=== PATIENT | female | born 1935 | race Caucasian/White ===

== ENCOUNTER 2017-10-09 16:45 | Inpatient (IN) | payer MEDICARE, BC ==
[2017-10-09 19:11] LABS: #Basophils 0.1 thou/uL (0.0-0.2); #Eosinphils 0.2 thou/uL (0.0-0.7); #Lymphocytes 1.6 thou/uL (1.20-3.40); #Monocytes 0.6 thou/uL (0.11-0.59); #Neutrophils 7.7 thou/uL (1.40-6.50); %Basophils 0.5 % (0.0-1.0); %Eosinophils 1.7 % (0.0-10.0); %Monocytes 6.1 % (0.0-10.0); Mean Platelet Volume 7.2 fL (7.4-10.4); Red Blood Cell (RBC) Count 3.29 mill/uL (4.20-5.40); White Blood Cell (WBC) Count 10.2 thou/uL (4.8-10.8)
[2017-10-09 19:33] LABS: ALT (SGPT) 12 U/L (8-55); AST (SGOT) 20 U/L (5-34); Alkaline Phosphatase 122 U/L (40-150); Anion Gap 11 mmol/L (10-20); BUN (Urea Nitrogen) 23 mg/dL (9.8-20.1); Bilirubin, Total 0.2 mg/dL (0.2-1.2); Calc. Creatinine Clearance 0 mL/min (70-130); Calcium 8.9 mg/dL (7.8-10.44); Carbon Dioxide 25 mmol/L (23-31); Chloride 107 mmol/L (98-107); Estimated GFR-MDRD 43; Globulin 2.1 g/dL (2.4-3.5); Protein, Total 5.8 g/dL (6.0-8.3)
[2017-10-09 19:38] LABS: Troponin I 0.019 ng/mL (< 0.028)
--- NOTE | 2017-10-09 20:14 | RAD ---
LEFT HIP RADIOGRAPH TWO VIEWS 10/09/17 PROVIDED CLINICAL HISTORY: Left hip pain status post injury. There is no evidence for fracture or other acute osseous abnormality. If there is persistent clinical concern, conservative management and followup imaging are advised. IMPRESSION: As above. POS: [facility]
--- NOTE | 2017-10-09 20:17 | RAD ---
PELVIC RADIOGRAPH 10/09/17 PROVIDED CLINICAL HISTORY: Pain status post injury. FINDINGS: Comparison 01/13/13. There is no evidence for fracture or other acute osseous abnormality. If there is persistent clinical concern, conservative management and followup imaging are advised. IMPRESSION: As above. POS: [facility]
--- NOTE | 2017-10-09 20:36 | RAD ---
PORTABLE CHEST 10/09/17 PROVIDED CLINICAL HISTORY: Trauma. FINDINGS: Comparison 01/27/16. The cardiac and mediastinal silhouette is within normal limits. Vascular calcification is noted invol ving the thoracic aorta. 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 No focal consolidation, pleural fluid, or pneumothorax apparent. IMPRESSION: No evidence for acute cardiopulmonary process. POS: [facility]
--- NOTE | 2017-10-09 20:49 | CT ---
CT BRAIN 10/09/17 PROVIDED CLINICAL HISTORY: Fall with head pain. FINDINGS: Comparison is made with the study dated 01/27/16. The ventricular system is unchanged in size and morphology. There is no evidence for intracranial hem orrhage or mass effect. Encephalomalacia in the left parieto-occipital region is redemonstrated, stab le. Chronic microvascular ischemic changes are again seen. No evidence for intracranial hemorrhage or mass effect. The extracranial soft tissues and osseous structures demonstrate an unremarkable CT horace earance. Remote infarction involving the left cerebellar hemisphere is again seen. IMPRESSION: No evidence for intracranial hemorrhage or mass effect. POS: [facility]
[2017-10-09 21:07] LABS: Bilirubin Negative (Negative); Blood, Urine Negative (Negative); Glucose, Urine (Dipstick) Negative (Negative); Ketone, Urine Negative (Negative); Nitrite Negative (Negative); Protein, Urine (Dipstick) Trace mg/dL (Neg-Trace); Urobilinogen 0.2 mg/dL (0.2-1.0)
[2017-10-09] MEDS ORDERED: Sodium Chloride 0.9% 1,000 ML IV SCH (23:10)
[2017-10-10 00:34] VITALS: BMI 23.6
[2017-10-10] MEDS ORDERED: Guaifenesin DM 100-10/5 ML UDCUP PO PRN (00:53)
[2017-10-10] MEDS ORDERED: ALPRAZolam 0.25 MG TAB PO PRN (00:53)
[2017-10-10] MEDS ORDERED: Senokot 8.6 MG TAB PO PRN (00:53)
[2017-10-10] MEDS ORDERED: Lorazepam 2 MG/ML VIAL SLOW IVP PRN (00:53)
[2017-10-10] MEDS ORDERED: Nitroglycerin 0.4 MG TAB (25 Tab Bottle) SL PRN (00:53)
[2017-10-10] MEDS: Sodium Chloride 0.9% 1,000 ML IV SCH ×2 (01:39→18:56)
--- NOTE | 2017-10-10 03:23 | HP ---
REASON FOR ADMISSION: Possible cerebrovascular accident, likely seizure episode at home, demand ischemia. HISTORY OF PRESENTING ILLNESS: Please note majority of this history is obtained by my talking to her daughter who is here at bedside as patient does not recall exactly what happened. She apparently fell out of her bed yesterday morning. She was diaphoretic and lethargic as well. She took a while to become more alert. The daughter who witnessed this slowly placed her back in a chair. She fell again from the chair and had another episode of fall in the kitchen while she was ambulating with a walker. She has been leaning to the right. Also, the daughter mentions that she has been slowly declining from last 3 years. Patient normally slurs her speech only when she gets very tired, but she has had a slurred speech from yesterday afternoon. With all the above, patient was brought to the emergency room. 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 CURRENT MEDICATIONS: Patient takes vitamin D3 of 2000 units p.o. daily, CoQ10 at 100 mg p.o. daily, sertraline 50 mg p.o. daily, Protonix 40 mg p.o. daily, Dilantin 200 mg p.o. at bedtime, duloxetine 30 mg p.o. daily, Flexeril 5 mg p.o. q.6 hourly p.r.n., Norvasc 2.5 mg p.o. daily, clonidine p.r.n., aspirin 81 mg p.o. daily, Zetia 10 mg p.o. daily, Bystolic 5 mg daily, Plavix 75 mg daily, Crestor 20 mg daily, lisinopril 20 mg daily. ALLERGIES: CIPRO, CODEINE, DEMEROL, PENICILLIN, ULTRAM, and PHENERGAN. PERSONAL HISTORY: Does not abuse alcohol or drugs. No history of smoking. FAMILY HISTORY: Mom of old age at the age of 86 years. Father of lung cancer at the age of 76 years. REVIEW OF SYSTEMS: The following complete review of systems was negative, unless otherwise mentioned in the HPI or below: Constitutional: Weight loss or gain, ability to conduct usual activities. Skin: Rash, itching. Eyes: Double vision, pain. ENT/Mouth: Nose bleeding, neck stiffness, pain, tenderness. Cardiovascular: Palpitations, dyspnea on exertion, orthopnea. Respiratory: Shortness of breath, wheezing, cough, hemoptysis, fever, or night sweats. Gastrointestinal: Poor appetite, abdominal pain, heartburn, nausea, vomiting, constipation, or diarrhea. Genitourinary: Urgency, frequency, dysuria, nocturia. Musculoskeletal: Pain, swelling. Neurologic/Psychiatric: Anxiety, depression. Allergy/Immunologic: Skin rash, bleeding tendency. PHYSICAL EXAMINATION: GENERAL: Patient is an 82-year-old female who is currently lethargic, but oriented. VITAL SIGNS: Blood pressure on arrival was 119/54, pulse 70 per minute, respiratory rate 18 per minute, temperature 98.4 degrees Fahrenheit, saturating 92% on room air. NECK: Supple, no elevated JVD. HEENT: Extraocular muscles intact. Pupils reacting to light. Oral cavity, mucous membranes are moist. No exudates or congestion. Patient has two lacerations on the tongue. CARDIOVASCULAR SYSTEM: S1, S2 heard. Regular rhythm. RESPIRATORY SYSTEM: Air entry 1+ bilateral. No rales or rhonchi. ABDOMEN: Soft, bowel sounds heard. No tenderness, rigidity, or guarding. EXTREMITIES: No peripheral edema or calf tenderness. VASCULAR SYSTEM: Peripheral pulses 1+ bilateral. No ischemic ulcerations or gangrene. CENTRAL NERVOUS SYSTEM: No gross focal deficits seen. Patient is lethargic with slurred speech, but no signs of seventh nerve palsy. PSYCHIATRIC SYSTEM: Patient does not have any hallucinations or delusions at present. LABORATORY DATA AND X-RAY FINDINGS: CT brain done shows old left parieto- occipital area, CVA with encephalomalacia. She also has left cerebellar hemisphere remote infarct. Pelvic x-ray done showed no fracture or acute osseous abnormality. Chest x-ray done shows no acute cardiopulmonary abnormality. Left hip x-ray done shows no acute fractures or osseous abnormality. BUN 23, creatinine 1.20. Electrolytes are stable. Liver enzymes within normal limits. Albumin is 3.7, one set of cardiac enzymes are negative. White count of 10, H&H 10 and 32, platelet count 187 with 75% neutrophils, MCV is 97. CLINICAL IMPRESSION AND PLAN: Patient will be admitted to stroke unit for recurrent falls with patient leaning more to the right. In view of this, we will obtain an MRI without contrast to rule out posterior hemisphere cerebrovascular accident. Will do a complete stroke workup including echo, carotid Doppler. Patient has lacerations on the tongue and most likely had a seizure. We will continue phenytoin as of now at 200 mg at bedtime. We will obtain Dilantin levels as well and we will have EEG done. Dr. Millie Henriquez is telephone maintainer for Neurology and will be consulted. I have given complete updates to patient and her daughter who is here at bedside. As patient is on aspirin and Plavix will be switched to Aggrenox and Plavix for now. She has had prior carotid endarterectomy as well done and we will continue Plavix for her coronary artery disease and carotid disease. We will continue Zetia and Crestor for her dyslipidemia. She will be gently hydrated with normal saline at 60 mL per hour. We will obtain orthostatic blood pressures as well. Please note I have seen and examined patient on 10/09/2017. HUANGD
[2017-10-10 06:50] LABS: Band 2 % (5-11); Hematocrit 32.9 % (36.0-47.0); Mean Platelet Volume 7.2 fL (7.4-10.4); Neutrophil 77 % (42-75); Red Blood Cell (RBC) Count 3.41 mill/uL (4.20-5.40); White Blood Cell (WBC) Count 7.5 thou/uL (4.8-10.8)
[2017-10-10 07:31] LABS: Anion Gap 14 mmol/L (10-20); BUN (Urea Nitrogen) 19 mg/dL (9.8-20.1); Calc. Creatinine Clearance 39 mL/min (70-130); Calcium 8.8 mg/dL (7.8-10.44); Carbon Dioxide 23 mmol/L (23-31); Chloride 109 mmol/L (98-107); Cholesterol 148 mg/dl (< 200 Desired); Dilantin 4.3 ug/mL (10.0-20.0); Estimated GFR-MDRD 62; LDL Cholesterol, Calculated 80 mg/dL
--- NOTE | 2017-10-10 08:27 | ULT ---
ULTRASOUND CAROTID DOPPLER: HISTORY: CVA. COMPARISON: Carotid Doppler ultrasound from 2011. FINDINGS: Moderate atherosclerotic plaque of the proximal bulbs and proximal internal carotid arteries. Antegr heidi flow left vertebral artery. Antegrade flow right vertebral artery. No elevated peak systolic ve locities of the internal carotid artery to suggest significantly significant stenosis. Right ICA/CCA ratio is 0.94 and left ICA/CCA ratio is 1.55. IMPRESSION: Moderate atherosclerotic plaque. No hemodynamically significant stenosis. POS: [facility]
[2017-10-10] MEDS ORDERED: Aggrenox 200-25mg CAP PO SCH (09:00)
[2017-10-10] MEDS: Amlodipine 5 MG TAB PO SCH (09:54)
[2017-10-10] MEDS: Nebivolol HCl 5 MG TAB PO SCH (09:55)
[2017-10-10] MEDS: Famotidine 20 MG TAB PO SCH (09:56)
[2017-10-10] MEDS: Clopidogrel Bisulfate 75 MG TAB PO SCH (10:00)
[2017-10-10] MEDS: Enoxaparin Sodium 30 MG/0.3 ML SYRINGE SC SCH (10:01)
[2017-10-10] MEDS: Acetaminophen 325 MG TAB PO PRN (11:57)
[2017-10-10] MEDS ORDERED: ALPRAZolam 0.5 MG TAB PO SCH (12:15)
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
[2017-10-10] MEDS ORDERED: Ondansetron HCl/PF 4 MG/2 ML Vial IVP PRN (14:43)
[2017-10-10] MEDS: Ezetimibe 10 MG TAB PO SCH (21:24)
[2017-10-10] MEDS: Lisinopril 20 MG TAB PO SCH (21:24)
--- NOTE | 2017-10-10 21:54 | CON ---
DATE OF CONSULTATION: 10/10/2017 REFERRING PROVIDER: Sherry Colvin M.D. REASON FOR CONSULTATION: Ataxia. HISTORY OF PRESENT ILLNESS: Ms. El is a pleasant 82-year-old female who has been con sulted for evaluation of ataxia. History is obtained from daughter who was present at the bedside. Daughter reports that yesterday she had an episode of fall. She was trying to get up out of the chun r and she slid and fell down. She also noticed her walking and balance was off in that she was leani ng more toward the left side while walking. She had another fall a few hours later, which was unwitn essed. At that time, the patient had mentioned that she was trying to sit down onto the chair and fe ll down as she missed the chair. Then, a few hours later, she had another fall which prompted her to bring her to the [place] emergency room. Daughter reports that the patient has a history of stro ke in 2014 when she was admitted at [facility] and she has shown me the images for CT s can, which showed left posterior parieto-occipital region ischemic infarct. She states that she has recovered well from that stroke and was doing well up until yesterday. Currently, the patient denies any headache, chest pain, palpitation, nausea, vomiting, numbness, tingling, or weakness. PAST MEDICAL HISTORY: Significant for hypertension, coronary artery disease, history of stroke, ques tionable seizure. PAST SURGICAL HISTORY: Significant for hysterectomy, appendectomy, breast biopsies, back surgery x2, right total knee replacement, right shoulder surgery, and TAVR. SOCIAL HISTORY: She denies smoking, alcohol use, or illicit drug use. She lives with her daughter. FAMILY HISTORY: Noncontributory. CURRENT MEDICATIONS: Please review MAR. ALLERGIES: Include CIPRO, CODEINE, DEMEROL, PENICILLIN, ULTRAM and PHENERGAN. REVIEW OF SYSTEMS: As mentioned in the HPI, otherwise, negative. PHYSICAL EXAMINATION: VITAL SIGNS: Blood pressure 147/65, pulse of 73, temperature of 97.5, respirations of 18, O2 sats of 92% on room air. GENERAL: Well-developed, well-nourished female in no apparent distress. RESPIRATORY: Clear to auscultation bilaterally. CARDIOVASCULAR: Regular rate and rhythm. NEUROLOGIC: Mental status: The patient is awake, alert, and oriented x3. Speech and language: Flu ent speech. Cranial nerves: Pupils are 3 mm and reactive. Visual perkins are intact. External musc les are intact. No nystagmus is noted. There is a facial droop noted on the left side. Per rhea mehta, this has been present since . Tongue and uvula are midline. Motor exam showed normal tone a nd bulk with 5/5 strength in both upper and lower extremities. Sensory: Sensation was intact and sy mmetric. Deep tendon reflexes: 2+ reflexes in both upper and lower extremities. Babinski: Plantar response is flexion bilaterally. Coordination: There is no dysmetria noted on [id number] o n the left side. LABORATORY DATA: Reviewed, which included CBC, CMP, lipid profile, urinalysis, and Dilantin level, w hich is significant for hemoglobin of 10.8, hematocrit of 32.9, total cholesterol of 148, triglycerid es of 155, LDL of 80, HDL of 37. Dilantin level was 4.3, otherwise, normal. IMAGING STUDIES: CT head without contrast was reviewed, which showed old encephalomalacia involving the left parieto-occipital region, as well as remote infarction in the left cerebellar hemisphere. O therwise, no acute intracranial abnormality. IMPRESSION: 1. Ataxia. 2. Possible cerebellar infarct. 3. Hypertension. ASSESSMENT AND PLAN: Ms. El is a pleasant 82-year-old female who presented with diff iculty with balance and gait with 3 falls. On exam, she has dysmetria on [id number] on the l eft side. This would suggest a possible cerebellar stroke on the left side. At this time, I would r ecommend obtaining MRI brain without contrast for further evaluation. I would recommend continuing h er on Plavix 75 mg daily for secondary stroke prevention. I would discontinue Aggrenox as Plavix and Aggrenox combination increases the risk for bleeding and combination does not provide any significan t benefit overall to the patient. Consult PT, OT. Continue current medical management.
[2017-10-11] MEDS: Acetaminophen 325 MG TAB PO PRN ×3 (05:11→20:22)
[2017-10-11] MEDS: Sodium Chloride 0.9% 1,000 ML IV SCH (09:53)
[2017-10-11] MEDS: Amlodipine 5 MG TAB PO SCH (09:53)
[2017-10-11] MEDS: Nebivolol HCl 5 MG TAB PO SCH (09:53)
[2017-10-11] MEDS: Clopidogrel Bisulfate 75 MG TAB PO SCH (09:53)
[2017-10-11] MEDS: Enoxaparin Sodium 30 MG/0.3 ML SYRINGE SC SCH (09:55)
[2017-10-11] MEDS: Famotidine 20 MG TAB PO SCH (09:55)
[2017-10-11] MEDS ORDERED: Lorazepam 2 MG/ML VIAL SLOW IVP SCH (16:00)
--- NOTE | 2017-10-11 17:50 | MRI ---
MRI OF BRAIN 10/11/17 PROVIDED CLINICAL HISTORY: Stroke. FINDINGS: The ventricular system is mildly prominent in size on the basis of central atrophy. There is no evide nce for intracranial hemorrhage. There is a punctate focus of possible diffusion restriction within t he right shy yue. The small nature of this finding and the chronic microvascular ischemic change in this region which surrounds this finding on the ADC map limits the ability to discriminate whether t his represents true restricted diffusion or not. No additional potential restricted diffusion is seen . Advanced chronic ischemic changes are also seen involving the basal ganglia and thalami. Encephalom alacia related to prior infarction involves the left occipital region. Appropriate flow voids are see n within the major intracranial vessels. The extracranial soft tissues and calvarial marrow signal de monstrate an unremarkable MR appearance. IMPRESSION: 1. Extensive chronic microvascular ischemic change. 2. Possible punctate focus of recent infarction within the right shy yue. POS: [facility]
--- NOTE | 2017-10-11 18:24 | PDOC.PN ---
- Subjective Encounter Start Date: 10/11/17 Encounter Start Time: 18:23 Subjective: seen and examined..+nausea/vomiting - Objective Resuscitation Status: Resuscitation Status FULL:Full Resuscitation Vital Signs & Weight: Vital Signs (12 hours) Temp Pulse Pulse Pulse Resp BP BP 10/11/17 18:00 10/11/17 15:28 97.6 F 80 16 10/11/17 11:20 85 80 153/67 H 10/11/17 11:10 98.3 F 78 16 10/11/17 09:53 94 184/79 H 10/11/17 08:00 98.3 F 78 16 10/11/17 07:30 100 F H 94 18 BP BP Pulse Ox 10/11/17 18:00 146/65 H 10/11/17 15:28 192/80 H 94 L 10/11/17 11:20 152/69 H 10/11/17 11:10 134/60 97 10/11/17 09:53 10/11/17 08:00 10/11/17 07:30 184/79 H 98 Weight Weight 108 lb 12.8 oz I&O: 10/10/17 10/11/17 10/12/17 06:59 06:59 06:59 Intake Total 540 1476 Balance 540 1476 Result Diagrams: 10/10/17 06:21 10/10/17 06:21 Phys Exam - Physical Examination Constitutional: NAD HEENT: PERRLA, moist MMs, sclera anicteric, TM's clear Neck: no nodes, no JVD, supple, full ROM Respiratory: no wheezing, no rales, no rhonchi, clear to auscultation bilateral Cardiovascular: RRR, no significant murmur Gastrointestinal: soft, non-tender Dx/Plan (1) CVA (cerebral vascular accident) Code(s): I63.9 - CEREBRAL INFARCTION, UNSPECIFIED Status: Acute (2) Seizure Code(s): R56.9 - UNSPECIFIED CONVULSIONS Status: Acute (3) Advanced age Code(s): R54 - AGE-RELATED PHYSICAL DEBILITY Status: Acute (4) Hyperlipidemia Code(s): E78.5 - HYPERLIPIDEMIA, UNSPECIFIED Status: Chronic (5) Hypertension Code(s): I10 - ESSENTIAL (PRIMARY) HYPERTENSION Status: Chronic (6) Nausea & vomiting Code(s): R11.2 - NAUSEA WITH VOMITING, UNSPECIFIED Status: Acute - Plan plan discussed w/ family, PT/OT, social media intern Appreciate Neurology input -: MRI of the braibn--follow up result * .
[2017-10-11] MEDS: Ezetimibe 10 MG TAB PO SCH (20:22)
[2017-10-11] MEDS: Lisinopril 20 MG TAB PO SCH (20:23)
[2017-10-12] MEDS: Sodium Chloride 0.9% 1,000 ML IV SCH (08:25)
[2017-10-12] MEDS: Nebivolol HCl 5 MG TAB PO SCH (08:26)
[2017-10-12] MEDS: Famotidine 20 MG TAB PO SCH (08:26)
[2017-10-12] MEDS: Amlodipine 5 MG TAB PO SCH (08:26)
[2017-10-12] MEDS: Clopidogrel Bisulfate 75 MG TAB PO SCH (08:26)
[2017-10-12] MEDS: Enoxaparin Sodium 30 MG/0.3 ML SYRINGE SC SCH (08:27)
--- NOTE | 2017-10-12 10:01 | PDOC.PN ---
- Subjective Encounter Start Date: 10/12/17 Encounter Start Time: 09:59 Subjective: Seen and examined feeling ok - Objective Resuscitation Status: Resuscitation Status FULL:Full Resuscitation Vital Signs & Weight: Vital Signs (12 hours) Temp Pulse Resp BP BP Pulse Ox 10/12/17 08:26 73 168/70 H 10/12/17 08:00 98.4 F 73 16 10/12/17 07:15 98.4 F 73 16 168/70 H 96 10/12/17 03:53 98.1 F 64 18 177/82 H 94 L 10/11/17 23:54 97.2 F L 72 20 160/69 H 96 Weight Weight 108 lb 12.8 oz I&O: 10/11/17 10/12/17 10/13/17 06:59 06:59 06:59 Intake Total 540 1716 240 Balance 540 1716 240 Result Diagrams: 10/10/17 06:21 10/10/17 06:21 Phys Exam - Physical Examination Constitutional: NAD HEENT: PERRLA, moist MMs, sclera anicteric, TM's clear Neck: no nodes, no JVD, supple, full ROM Respiratory: no wheezing, no rales, no rhonchi, clear to auscultation bilateral Cardiovascular: RRR, no significant murmur, no rub Gastrointestinal: soft, non-tender, no distention, positive bowel sounds Dx/Plan (1) CVA (cerebral vascular accident) Code(s): I63.9 - CEREBRAL INFARCTION, UNSPECIFIED Status: Acute (2) Seizure Code(s): R56.9 - UNSPECIFIED CONVULSIONS Status: Acute (3) Advanced age Code(s): R54 - AGE-RELATED PHYSICAL DEBILITY Status: Acute (4) Hyperlipidemia Code(s): E78.5 - HYPERLIPIDEMIA, UNSPECIFIED Status: Chronic (5) Hypertension Code(s): I10 - ESSENTIAL (PRIMARY) HYPERTENSION Status: Chronic (6) Nausea & vomiting Code(s): R11.2 - NAUSEA WITH VOMITING, UNSPECIFIED Status: Acute - Plan PT/OT, social media manager, respiratory therapy Referred to Rehab -: Awaiting acceptance/placement -: Neurology following -: MRI confirmed stroke * .
[2017-10-12 15:55] VITALS: TEMP 98.3
[2017-10-12 16:20] VITALS: BP 150/66
--- NOTE | 2017-10-16 12:09 | EEG ---
Referring Physician: Sukumar SCHMITZ EEG # [id number] TEST TYPE: ROUTINE PORTABLE INPATIENT REASON FOR EEG: ALTERED MENTAL STATUS EEG DESCRIPTION: This is a 21 channel digital EEG recording. The electrodes are placed according to international 10-20 electrode placement system. The background rhythm is predominately 8 hertz, medium voltage alpha rhythm. There are periods of drowsiness with 6-7 hertz, low to medium voltage theta rhythm. HYPERVENTILATION: Is not done. PHOTIC STIMULATION: Showed no effect. There are no epileptiform discharges, sharp transients or asymmetry noted. EKG LEAD: Shows 90 beats per minute, regular rhythm IMPRESSION: THIS IS A NORMAL AWAKE AND DROWSY EEG. Log Peeler: MISHA Geriatric Assistant: EEG.MSL HUANGD
== END 2017-10-12 16:10 | DRG 66 ==
LOC: ERS 16:45 → 2SE 23:43
PROVIDERS: ADMIT Internal Medicine; ATTEND Internal Medicine
PROC: B030ZZZ Magnetic Resonance Imaging (MRI) of Brain (ICD-10-PCS; principal; 2017-10-11)
DX: I63.9 Cerebral infarction, unspecified (principal); R56.9 Unspecified convulsions; R54 Age-related physical debility; I10 Essential (primary) hypertension; I25.10 Atherosclerotic heart disease of native coronary artery without angina pectoris; R27.0 Ataxia, unspecified; R29.6 Repeated falls; R27.8 Other lack of coordination; Z96.651 Presence of right artificial knee joint; Z99.3 Dependence on wheelchair; Z88.1 Allergy status to other antibiotic agents; Z88.5 Allergy status to narcotic agent; Z88.0 Allergy status to penicillin; Z95.2 Presence of prosthetic heart valve; Z88.8 Allergy status to other drugs, medicaments and biological substances; Z80.1 Family history of malignant neoplasm of trachea, bronchus and lung
CPT/HCPCS: 36415; 51701; 70450; 70551; 71010; 72170; 80048; 80053; 80061; 80185; 81003; 82553; 84443; 84484; 85025; 93005; 93306; 93880; 95816; 95819; A4353; G8978-GP-CK; G8979-GP-CI; G8987-GO-CM; G8988-GO-CK; G8996-GN-CI; G8997-GN-CI; J1650; J2060; J2405

== ENCOUNTER 2017-10-28 19:36 | Observation (INO) | payer MEDICARE, BC ==
[2017-10-28 20:07] LABS: #Lymphocytes 0.4 thou/uL (1.20-3.40); #Monocytes 0.6 thou/uL (0.11-0.59); #Neutrophils 4.7 thou/uL (1.40-6.50); %Eosinophils 0.4 % (0.0-10.0); %Lymphocytes 7.6 % (21.0-51.0); %Monocytes 9.8 % (0.0-10.0); %Neutrophils 82.2 % (42.0-75.0); Hemoglobin 9.4 g/dL (12.0-16.0); Mean Corpuscular HGB CONC 33.2 g/dL (32.0-36.0); Mean Corpuscular Hemoglobin 33.5 pg (27.0-31.0); Mean Platelet Volume 6.9 fL (7.4-10.4); Platelet Count 145 thou/uL (130-400); RBC Distribution Width 12.5 % (11.5-14.5); Red Blood Cell (RBC) Count 2.82 mill/uL (4.20-5.40); White Blood Cell (WBC) Count 5.8 thou/uL (4.8-10.8)
[2017-10-28 20:37] LABS: ALT (SGPT) 16 U/L (8-55); AST (SGOT) 20 U/L (5-34); Albumin 3.3 g/dL (3.4-4.8); Alkaline Phosphatase 101 U/L (40-150); Anion Gap 11 mmol/L (10-20); BUN (Urea Nitrogen) 22 mg/dL (9.8-20.1); Bilirubin, Total 0.3 mg/dL (0.2-1.2); CK (CPK) 32 U/L (29-168); Calc. Creatinine Clearance 0 mL/min (70-130); Calcium 8.3 mg/dL (7.8-10.44); Carbon Dioxide 25 mmol/L (23-31); Chloride 107 mmol/L (98-107); Estimated GFR-MDRD 55; Globulin 2.1 g/dL (2.4-3.5); Glucose 98 mg/dL (83-110); Potassium 4.1 mmol/L (3.5-5.1); Protein, Total 5.4 g/dL (6.0-8.3); Sodium 139 mmol/L (136-145)
[2017-10-28 20:40] LABS: CKMB 0.4 ng/mL (0-6.6); Troponin I 0.031 ng/mL (< 0.028)
--- NOTE | 2017-10-28 21:26 | RAD ---
CHEST ONE VIEW: History: Cough. Comparison: 10-09-17 FINDINGS: There is still chronic pleural and parenchymal changes in the lung bases. Mild dextroscoliosis of the thoracic spine. Dense vascular calcifications of the aorta. No pneumothorax. No focal airspace conso lidation. Valve prostate or aortic valve is present. IMPRESSION: Chronic changes. No acute intrathoracic abnormality. POS: [facility]
[2017-10-28 21:47] LABS: Bilirubin Negative (Negative); Blood, Urine Negative (Negative); Clarity CLOUDY (Clear); Glucose, Urine (Dipstick) Negative (Negative); Leukocyte Negative (Negative); Nitrite Negative (Negative); Protein, Urine (Dipstick) Trace mg/dL (Neg-Trace); Specific Gravity, Urine 1.025 (1.002-1.036); Urobilinogen 0.2 mg/dL (0.2-1.0); pH, Urine 5.5 (5.0-9.0)
[2017-10-29 00:33] LABS: Troponin I 0.033 ng/mL (< 0.028)
[2017-10-29] MEDS ORDERED: Acetaminophen 325 MG TAB ONE (00:47)
[2017-10-29] MEDS ORDERED: Ondansetron HCl/PF 4 MG/2 ML Vial ONE (00:52)
[2017-10-29] MEDS ORDERED: Labetalol HCl 100 MG TAB ONE (01:12)
[2017-10-29] MEDS ORDERED: Furosemide 40 MG/4 ML VIAL ONE (01:12)
[2017-10-29] MEDS ORDERED: Labetalol HCl 100 MG/20 ML VIAL ONE (01:13)
[2017-10-29] MEDS ORDERED: Azithromycin 500 MG in Sodium Chloride 0.9% 250 ML 250 ML IVPB SCH (02:15)
[2017-10-29] MEDS ORDERED: Labetalol HCl 100 MG/20 ML VIAL SLOW IVP PRN (03:04)
[2017-10-29] MEDS ORDERED: Acetaminophen 325 MG TAB PO PRN ×2 (03:05→03:11)
[2017-10-29] MEDS ORDERED: Ondansetron HCl/PF 4 MG/2 ML Vial IVP PRN ×2 (03:05→03:11)
[2017-10-29] MEDS ORDERED: Ondansetron ODT 4 MG TAB SL PRN (03:05)
[2017-10-29] MEDS ORDERED: HYDROcodone/Acetaminophen 5/325 mg Tablet PO PRN ×2 (03:05)
[2017-10-29] MEDS ORDERED: Acetaminophen 650 MG Suppository PR PRN (03:11)
[2017-10-29] MEDS ORDERED: Bisacodyl 5 MG TAB PO PRN (03:11)
[2017-10-29] MEDS ORDERED: Ondansetron ODT 4 MG TAB PO PRN (03:11)
[2017-10-29] MEDS ORDERED: cloNIDine 0.1 MG TAB PO PRN (03:13)
[2017-10-29 03:52] LABS: Troponin I 0.045 ng/mL (< 0.028)
--- NOTE | 2017-10-29 05:02 | HP ---
PRIMARY CARE PHYSICIAN: MARIA DE JESUS Gold CHIEF COMPLAINT: Fever, nausea, and vomiting. HISTORY OF PRESENT ILLNESS: This is an 82-year-old white female recently in the hospital for cerebellar stroke at [facility] and discharged home on Sunday night two days prior to admission. The patient was doing well then yesterday, she started to get some congestion and cough, developed fatigue , generalized myalgias and weakness, fever to 101 per the daughter, so came into the emergency room today. Fever did come down with Tylenol before arrival , but spiked again in the emergency room to 102.6. The patient had negative flu in the emergency room, viral antigen panel has been sent. She has had no infiltrates on her chest x-ray. Negative urinalysis and her white blood cell count was normal; however, her troponins were indeterminate at 0.031 and has previously been negative last month that during her hospitalization. Her brain natriuretic peptide was also found to be elevated at 380, we do not have a previous one and don't know where her baseline is. The patient is feeling much better after her fever coming back down and does not have any current complaints when I came into see her in the emergency room. PAST MEDICAL HISTORY: 1. Multiple previous strokes. 2. Hypertension. 3. Coronary artery disease. 4. Aortic valve stenosis status post total aortic valve replacement. PAST SURGICAL HISTORY: 1. Hysterectomy. 2. Appendectomy. 3. Breast biopsies. 4. Back surgery x2. 5. Total right knee replacement. 6. Right shoulder surgery. 7. [place] aortic valve [place] [facility] [place] SOCIAL HISTORY: No tobacco, alcohol, or illicit drug use. FAMILY HISTORY: Mom of old age at 86 years old. Father of lung cancer at age of 76. ALLERGIES: 1. CIPRO. 2. CODEINE. 3. DEMEROL. 4. PENICILLIN. 5. ULTRAM. 6. PHENERGAN. CURRENT MEDICATIONS: 1. Lisinopril 20 mg daily. 2. Bystolic 5 mg daily. 3. Zetia 10 mg daily. 4. vitamin 1 tablet daily. 5. Aspirin 81 mg daily. 6. Clonidine 0.1 mg p.o. p.r.n. severely elevated blood pressure. 7. Amlodipine 2.5 mg daily. 8. Cetirizine 10 mg twice a day. 9. Pantoprazole 40 mg daily. 10. Sertraline 50 mg daily. 11. Coenzyme Q10 100 mg daily. 12. Vitamin D3 2000 units daily. 13. Duloxetine 30 mg twice a day. 14. Dilantin 100 mg daily at bedtime. 15. Plavix 75 mg daily. REVIEW OF SYSTEMS: The patient is not able to give history of review of systems , was taken mostly from her daughter. Constitutional: Fevers and chills as per HPI. Eyes: No double vision or blurred vision. ENT: She has had congestion and some sore throat. CARDIOVASCULAR: No chest pain, no palpitations or racing heart. Pulmonary: Coughing as per HPI. No wheezing or chest tightness. No trouble breathing. Gastrointestinal: No abdominal pain. She has had some nausea and vomited yesterday, no vomiting today. She has had some constipation which resolved with medications yesterday and she had 3 or 4 bowel movements yesterday, clearing everything out. Genitourinary: No dysuria or hematuria. Musculoskeletal: She has diffuse body aches, but no specific areas of complaint. Skin: No rashes or other lesions. Neurologic: No focal neurologic deficits. No numbness, tingling or focal weakness. Her dizziness and ataxia has improved after rehabilitation. PHYSICAL EXAMINATION: VITAL SIGNS: Blood pressure was initially 134/55 when she came to the ER; however, spike in the emergency room up to 205/75. She was given p.r.n. medications, now down to 141/42. Pulse 76, respirations 14, O2 sat 100% on room air, temperature now down to 100.4 after treatment. GENERAL: This is a well-developed elderly white female in no apparent distress , sleeping comfortably in the bed. HEENT: Pupils equal, round, and reactive to light. Oropharynx clear without lesions, erythema or exudate. NECK: Supple, no lymphadenopathy, no thyroid nodules or enlargement, no JVD. HEART: Regular rate and rhythm, no murmurs, rubs or gallops. She does have a little bit of systolic heart murmur. LUNGS: Clear to auscultation bilaterally, no wheezes, crackles or rhonchi. ABDOMEN: Soft, diffuse mild tenderness to deep palpation without guarding or rebound tenderness. No hepatosplenomegaly or other masses. Normoactive bowel sounds. EXTREMITIES: No clubbing, cyanosis or edema. She has no deformities of her extremities. SKIN: No rashes or other lesions. NEUROLOGIC: She has no facial droop and she will move all of her extremities equally. LABORATORY DATA: CBC with a hemoglobin of 9.4, which is stable from her most recent lab tests. White blood cell count is normal at 5.8, platelet count normal. Complete metabolic panel was notable only for BUN of 22 and albumin of 3.3. The rest is completely normal. Troponin is indeterminate at 0.031, recheck 0.033. Brain natriuretic peptide 380. Lactic acid was negative. Urinalysis negative. Influenza A and B were negative. The other antigen panel was still pending. Chest x-ray: I did review the chest x-ray along with the radiologist's report. The patient does not have any new infiltrates or evidence of pulmonary edema. EKG shows normal sinus rhythm at 79 beats per minute with occasional PVCs, no ST segment changes, no T-wave changes. ASSESSMENT AND PLAN: 1. Acute viral illness. The patient appears to be tolerating this well, as well as need symptomatic treatment with some antipyretics and oral fluids. 2. Indeterminate troponins, most likely due to stress of the current infection with her known coronary artery disease. There is no evidence of acute ischemia. Her EKG did not have any acute changes. She is not having any chest pain and her oxygen saturation and respiratory effort are all normal. We will check another set to make certain that troponins are not bumping and we will watch the patient on telemetry monitoring for the rest of the morning. If we are able to keep patient's blood pressure recent control, she does not have any bumping up her troponin beyond this low indeterminate range, then she can be discharged home later this morning or in the afternoon. We will go ahead and restart patient's hypertension medications to try and keep hypertension under control. We will also wait the rest of the respiratory panel to see if there is another diagnosable virus that explains these symptoms. 3. Hypertension. Will restart home medications and monitor closely. 4. Gastrointestinal prophylaxis. Put the patient on Pepcid twice a day. 5. Deep venous thrombosis prophylaxis. If the patient needs to sustain longer term in the hospital, we will put her on Lovenox for prevention. 6. Code status. I discussed this with the patient and with her daughter, she is a FULL CODE. Should she will be incapacitated, her daughter, Elizabeth El, would be her medical decision maker. DANIELLE
[2017-10-29 05:29] VITALS: BMI 23.1
[2017-10-29 06:01] LABS: Hemoglobin 9.4 g/dL (12.0-16.0); Mean Corpuscular HGB CONC 33.3 g/dL (32.0-36.0); Mean Corpuscular Hemoglobin 33.5 pg (27.0-31.0); Mean Platelet Volume 7.8 fL (7.4-10.4); Platelet Count 146 thou/uL (130-400); RBC Distribution Width 12.6 % (11.5-14.5); Red Blood Cell (RBC) Count 2.82 mill/uL (4.20-5.40); White Blood Cell (WBC) Count 4.3 thou/uL (4.8-10.8)
[2017-10-29 06:02] LABS: #Lymphocytes 0.5 thou/uL (1.20-3.40); #Monocytes 0.4 thou/uL (0.11-0.59); #Neutrophils 3.4 thou/uL (1.40-6.50); %Eosinophils 0.5 % (0.0-10.0); %Lymphocytes 10.9 % (21.0-51.0); %Monocytes 8.3 % (0.0-10.0); %Neutrophils 80.3 % (42.0-75.0)
[2017-10-29 06:28] LABS: Anion Gap 16 mmol/L (10-20); BUN (Urea Nitrogen) 20 mg/dL (9.8-20.1); Calc. Creatinine Clearance 36 mL/min (70-130); Calcium 8.4 mg/dL (7.8-10.44); Carbon Dioxide 20 mmol/L (23-31); Chloride 106 mmol/L (98-107); Estimated GFR-MDRD 59; Glucose 104 mg/dL (83-110); Potassium 3.6 mmol/L (3.5-5.1); Sodium 138 mmol/L (136-145)
[2017-10-29] MEDS ORDERED: Docusate 100 MG CAP PO SCH (09:00)
[2017-10-29] MEDS ORDERED: Famotidine 20 MG TAB PO SCH (09:00)
[2017-10-29] MEDS ORDERED: Loratadine 10 MG TAB PO SCH (09:00)
[2017-10-29] MEDS ORDERED: Amlodipine 5 MG TAB PO SCH (09:00)
[2017-10-29] MEDS ORDERED: Lisinopril 20 MG TAB PO SCH (09:00)
[2017-10-29] MEDS ORDERED: Nebivolol HCl 5 MG TAB PO SCH ×2 (09:00→21:00)
[2017-10-29] MEDS ORDERED: Enoxaparin Sodium 30 MG/0.3 ML SYRINGE SC SCH (09:00)
[2017-10-29] MEDS ORDERED: hydrALAZINE 25 MG TAB PO PRN (13:25)
--- NOTE | 2017-10-29 13:46 | PDOC.PN ---
- Subjective Encounter Start Date: 10/29/17 Encounter Start Time: 13:43 Ms. El was seen today in follow-up. She says she is going to try and eat a little something. She does not appear toxic. - Objective Resuscitation Status: Resuscitation Status FULL:Full Resuscitation MAR Reviewed: Yes Vital Signs & Weight: Vital Signs (12 hours) Temp Pulse Resp BP Pulse Ox 10/29/17 12:35 92 L 10/29/17 11:50 101.2 F H 80 20 189/78 H 92 L 10/29/17 08:58 73 10/29/17 08:00 99.8 F H 73 16 161/67 H 92 L 10/29/17 07:49 98.5 F 70 18 10/29/17 04:01 98.5 F 70 18 10/29/17 02:54 98.5 F 70 18 103/51 L 94 L Weight Weight 103 lb 6.4 oz I&O: 10/28/17 10/29/17 10/30/17 06:59 06:59 06:59 Intake Total 50 240 Output Total 300 Balance -250 240 Result Diagrams: 10/29/17 03:14 10/29/17 03:14 Phys Exam - Physical Examination HEENT: PERRLA Respiratory: no wheezing, no rales, no rhonchi, clear to auscultation bilateral Cardiovascular: RRR, no significant murmur Gastrointestinal: soft, non-tender, positive bowel sounds Musculoskeletal: no edema Dx/Plan (1) Viral syndrome Status: Acute (2) CAD (coronary artery disease) Code(s): I25.10 - ATHSCL HEART DISEASE OF [place] CORONARY ARTERY W/O ANG PCTRS Status: Acute (3) CVA (cerebral vascular accident) Code(s): I63.9 - CEREBRAL INFARCTION, UNSPECIFIED Status: Acute (4) Hyperlipidemia Code(s): E78.5 - HYPERLIPIDEMIA, UNSPECIFIED Status: Chronic (5) Hypertension Code(s): I10 - ESSENTIAL (PRIMARY) HYPERTENSION Status: Chronic - Plan * Viral syndrome- the patient does not appear toxic. She is sitting up at the side of the bed eating lunch. Her cultures are negative so far. Pulse ox was 94 % on RA. * Her symptoms seem to be abating * She is stable for discharge from my standpoint with close outpatient followup * HTN- blood pressure is slightly elevated- will re-start home medications as previously ordered, as well as a PRN medication * CAD- stable..
[2017-10-29 17:13] VITALS: BP 148/61
[2017-10-29 17:30] VITALS: TEMP 98.7
--- NOTE | 2017-10-30 03:13 | DIS ---
ADMISSION DATE: 10/29/2017 DISCHARGE DATE: 10/29/2017 PRIMARY CARE PHYSICIAN: MARIA DE JESUS Gold. DISCHARGE DISPOSITION: Home. PRIMARY DISCHARGE DIAGNOSES: 1. Influenza A H3. 2. Viral syndrome secondary to #1. 3. Elevated troponin with demand ischemia secondary to #1. 4. Hypertension. 5. History of coronary artery disease. 6. History of aortic valve stenosis. 7. History of cerebrovascular accident in the past. DISCHARGE MEDICATIONS: Include Tamiflu 75 mg 1 p.o. twice a day for 5 days. She is to continue CoQ1 0 100 mg daily, sertraline 50 mg daily, Crestor 20 mg q.p.m., vitamins once daily, phenytoin 200 mg at bedtime, pantoprazole 40 mg daily, Nitrostat 0.4 sublingual p.r.n., Bystolic 5 mg twice da claudette, lisinopril 20 mg q. day, Zetia 10 mg q.p.m., duloxetine 30 mg twice a day, Plavix 75 mg daily, c lonidine 0.1 mg p.r.n., vitamin D3 of 2000 units daily, Zyrtec 10 mg twice a day, aspirin 81 mg daily , and amlodipine 2.5 mg daily. CODE STATUS: FULL CODE. ALLERGIES: CIPRO, CODEINE, HYDROCODONE, MEPERIDINE, PENICILLINS and PHENERGAN. HOSPITAL COURSE: Ms. El is a pleasant 82-year-old female who was admitted to the hospital afte r having high fever, nausea, and vomiting. She also had an elevated troponin. She was found to be p ositive for influenza A H3 and the following morning, she was actually improving as far as her sympto ms. She was able to keep food down. No vomiting and there were no signs of pneumonia by chest x-ray and as such, she was discharged home on Tamiflu and to have close outpatient followup.
[2017-10-30] MEDS ORDERED: Clopidogrel Bisulfate 75 MG TAB PO SCH (09:00)
== END 2017-10-29 18:31 | disposition home or self-care (01) ==
LOC: ERS 19:36 → 2SW 10-29 01:00
PROVIDERS: ADMIT Emergency Medicine; ATTEND Emergency Medicine
DX: J10.1 Influenza due to other identified influenza virus with other respiratory manifestations (principal); B34.9 Viral infection, unspecified; I24.8 Other forms of acute ischemic heart disease; R74.8 Abnormal levels of other serum enzymes; I25.10 Atherosclerotic heart disease of native coronary artery without angina pectoris; I10 Essential (primary) hypertension; F41.9 Anxiety disorder, unspecified; Z86.73 Personal history of transient ischemic attack (TIA), and cerebral infarction without residual deficits; Z80.1 Family history of malignant neoplasm of trachea, bronchus and lung; Z79.82 Long term (current) use of aspirin; Z79.02 Long term (current) use of antithrombotics/antiplatelets; Z79.899 Other long term (current) drug therapy; Z88.0 Allergy status to penicillin; Z88.1 Allergy status to other antibiotic agents; Z88.5 Allergy status to narcotic agent; Z88.8 Allergy status to other drugs, medicaments and biological substances; Z96.651 Presence of right artificial knee joint; Z95.3 Presence of xenogenic heart valve; Z90.710 Acquired absence of both cervix and uterus; Z90.49 Acquired absence of other specified parts of digestive tract; Z98.890 Other specified postprocedural states
CPT/HCPCS: 51701; 71045; 80048; 80053; 81003; 82550; 82553; 83605; 83880; 84484 ×3; 85025 ×2; 87040; 87633; 87804 ×2; 93005; 96374; 96375; 97139; 99285; G0378; 36415; A4353; J0456; J0696; J1650; J1940; J2405; J7050

== ENCOUNTER 2017-10-30 14:59 | Observation (INO) | payer MEDICARE, BC ==
[2017-10-30 16:00] LABS: #Monocytes 0.6 thou/uL (0.11-0.59); #Neutrophils 3.3 thou/uL (1.40-6.50); %Basophils 0.5 % (0.0-1.0); %Eosinophils 0.5 % (0.0-10.0); %Lymphocytes 19.3 % (21.0-51.0); %Monocytes 12.2 % (0.0-10.0); %Neutrophils 67.6 % (42.0-75.0); Hemoglobin 9.8 g/dL (12.0-16.0); Mean Corpuscular HGB CONC 32.6 g/dL (32.0-36.0); Mean Corpuscular Hemoglobin 32.5 pg (27.0-31.0); Mean Corpuscular Volume 99.8 fl (81.0-99.0); Mean Platelet Volume 7.5 fL (7.4-10.4); Platelet Count 120 thou/uL (130-400); RBC Distribution Width 12.4 % (11.5-14.5); Red Blood Cell (RBC) Count 3.01 mill/uL (4.20-5.40); White Blood Cell (WBC) Count 4.9 thou/uL (4.8-10.8)
[2017-10-30 16:16] LABS: PTT 28.1 SEC (22.9-36.1); Prothrombin Time 13.6 SEC (12.0-14.7)
[2017-10-30 16:18] LABS: ALT (SGPT) 16 U/L (8-55); AST (SGOT) 28 U/L (5-34); Albumin 3.1 g/dL (3.4-4.8); Alkaline Phosphatase 83 U/L (40-150); Anion Gap 15 mmol/L (10-20); BUN (Urea Nitrogen) 19 mg/dL (9.8-20.1); Bilirubin, Total 0.2 mg/dL (0.2-1.2); CK (CPK) 108 U/L (29-168); Calc. Creatinine Clearance 0 mL/min (70-130); Calcium 8.1 mg/dL (7.8-10.44); Carbon Dioxide 20 mmol/L (23-31); Chloride 103 mmol/L (98-107); Estimated GFR-MDRD 46; Globulin 1.7 g/dL (2.4-3.5); Glucose 100 mg/dL (83-110); Lipase 35 U/L (8-78); Magnesium 1.9 mg/dL (1.6-2.6); Potassium 3.6 mmol/L (3.5-5.1); Protein, Total 4.8 g/dL (6.0-8.3); Sodium 134 mmol/L (136-145)
[2017-10-30 16:21] LABS: CKMB 0.8 ng/mL (0-6.6); Troponin I 0.063 ng/mL (< 0.028)
--- NOTE | 2017-10-30 16:35 | RAD ---
CHEST ONE VIEW: History: Fall, chest pain. Comparison: 10-28-15 FINDINGS: Cardiac silhouette is magnified and enlarged. Pulmonary vasculature are slightly engorged. Mediastinu m is midline with aortic calcification and an aortic valve stent. There is no lobar consolidation or evidence of pneumothorax. Post-operative changes of the right shoulder are evident. IMPRESSION: 1. Cardiomegaly. Borderline pulmonary vasculature prominence. 2. Atherosclerosis. POS: EDMETRIS
[2017-10-30 17:45] LABS: Bilirubin Negative (Negative); Blood, Urine Negative (Negative); Clarity CLOUDY (Clear); Glucose, Urine (Dipstick) Negative (Negative); Leukocyte Negative (Negative); Nitrite Negative (Negative); Protein, Urine (Dipstick) 30 mg/dL (Neg-Trace); Specific Gravity, Urine 1.023 (1.002-1.036); Urobilinogen 0.2 mg/dL (0.2-1.0)
[2017-10-30 17:48] LABS: Bacteria/HPF None Seen HPF (None Seen); RBC/HPF 0-3 HPF (0-3); Squamous Epithelial 0-3 HPF (0-3); WBC/HPF 0-3 HPF (0-3)
[2017-10-30 17:54] LABS: Pathc Cast-AUWi Flag 5.28 (0-2.49); Yeast-AUWi Flag 32.6 (0-25.0)
[2017-10-30 18:02] LABS: Hyaline Casts/LPF NONE SEEN LPF (0-3 Hyaline); Manual Microscopic Reviewed? No Path Casts Seen; Yeast-All Forms None Seen HPF (None Seen)
[2017-10-30] MEDS ORDERED: Nitroglycerin 0.4 MG TAB (25 Tab Bottle) SL PRN (20:12)
[2017-10-30] MEDS ORDERED: hydrALAZINE 20 MG/ML VIAL SLOW IVP PRN (20:12)
[2017-10-30] MEDS ORDERED: Calcium Carbonate 500 MG ChewTAB PO PRN (20:12)
[2017-10-30] MEDS ORDERED: Chloraseptic Spray 180 ml Bottle PO PRN (20:12)
[2017-10-30] MEDS ORDERED: Sodium Chloride 0.9% 1,000 ML IV SCH (20:12)
[2017-10-30] MEDS ORDERED: Docusate 100 MG CAP PO PRN (20:12)
[2017-10-30 20:54] LABS: Troponin I 0.052 ng/mL (< 0.028)
[2017-10-30] MEDS: Nebivolol HCl 5 MG TAB PO SCH (22:45)
[2017-10-30] MEDS: Oseltamivir 75 MG CAP PO SCH (22:45)
--- NOTE | 2017-10-31 00:50 | HP ---
CHIEF COMPLAINT: Syncopal episode. HISTORY OF PRESENT ILLNESS: This is an 82-year-old pleasant lady who was apparently in usual state o f health, around 2:00 p.m. wanted to go to the bathroom, her daughter helped her to the bathroom. Wh en she approached the commode and sat down, she said that she could not pee and at that point, she tr ied to get up and sit up in the chair and walker at that time, she had a syncopal episode. The daugh clay said it was like a good 2 to 3 minutes. She caught her and patient did not hit her head. She pr essed the LifeVest button and she called the EMS and checked her blood pressure. Blood pressure was 90/30. Patient was brought to the hospital for further evaluation and treatment. Of note, patient w as recently discharged from our hospital after being treated for flu Sunday before. Patient also adm its to some chest pain and dizziness. No seizure-like activity. PAST MEDICAL HISTORY: Significant for previous multiple strokes, hypertension, coronary artery disea se, aortic valve stenosis, status post aortic valve replacement. Patient has been extensively evalua red in the month of September as well for possible CVA. PAST SURGICAL HISTORY: Hysterectomy, appendectomy, breast biopsy, back surgery, total knee replaceme nt, right shoulder surgery, aortic valve replacement with bioprosthetic valve in 2014. SOCIAL HISTORY: Significant for no tobacco, alcohol, or illicit drug use. FAMILY HISTORY: Mom of old age at age 86. Father of lung cancer at age 76. ALLERGIES: CIPRO, CODEINE, DEMEROL, PENICILLIN, ULTRAM, PHENERGAN. CURRENT MEDICATIONS: Include lisinopril 20 mg p.o. daily, Bystolic 5 mg p.o. daily, Zetia 10 mg p.o. daily, vitamin 1 tablet daily, aspirin 81 mg p.o. daily, Plavix 75 daily, Dilantin 100 mg p .o. at bedtime, duloxetine 30 mg p.o. b.i.d., vitamin D3, Coenzyme Q10, pantoprazole, sertraline, aml odipine 2.5 p.o. daily, clonidine 0.1 p.r.n. for significantly elevated blood pressure, aspirin 81 mg p.o. daily. REVIEW OF SYSTEMS: Significant for syncopal episode and cough, otherwise no fever, no chills, no hea dache, no eye pain, no hearing loss, no latencies, some chest pain, no diarrhea, dysuria, or polyuria . No memory or mood changes. No neck pain. PHYSICAL EXAMINATION: VITAL SIGNS: Blood pressure right now is 159/50, pulse is 59, respirations 18, temperature 97. GENERAL: Patient is lying in bed in no apparent distress. HEENT: Atraumatic, normocephalic. Pupils are equally round, react to light. Extraocular movements intact. Mucous membranes moist. NECK: Supple. No JVD. CHEST: Breath sounds. There are no rales or rhonchi. CARDIOVASCULAR: S1, S2 normal. The patient does have a little bit of systolic heart murmur. ABDOMEN: Soft, nontender. EXTREMITIES: No cyanosis, clubbing, edema. Distal pulses present. NEUROLOGIC: Alert, awake, oriented. No cranial deficits. No sensorimotor deficits. LABORATORY DATA: UA is negative. Chest x-ray is negative. BNP is 442. Troponin 0.063. Lactic aci d is 2.0. Magnesium is 1.9. Lipase is 35, potassium 3.6. Creatinine 1.1. WBC count is 4.9, hemogl obin is 9.8. ASSESSMENT AND PLAN: 1. Syncopal episode with episode of low blood pressure. Of note, patient's blood pressure in the mo rning was 200/70 and the patient's daughter had given her 0.1 mg of clonidine. Patient's daughter sa ys that the patient's blood pressure is always labile, but she has never fainted. 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 Henriquez who has seen her in the past to he lp me with the management of this patient. Meanwhile, we will do bed rest and monitor the patient. Patient had a recent echo, which showed EF of 65% and a recent MRI of the brain as well. We will fol low Neurology and Cardiology. 2. Flu influenza A H3. We will continue Tamiflu. Elevated troponin has been getting higher since t he 8th. We will follow Cardiology plan. 3. History of coronary artery disease, stable. 4. History of aortic valve replacement, stable. 5. History of cerebrovascular accident in the past, stable. Sequential compression devices for deep venous thrombosis prophylaxis. I will work with the consultants further caring for the patient.
[2017-10-31 02:39] LABS: #Eosinphils 0.1 thou/uL (0.0-0.7); #Lymphocytes 1.5 thou/uL (1.20-3.40); #Monocytes 0.4 thou/uL (0.11-0.59); %Basophils 0.4 % (0.0-1.0); %Lymphocytes 37.4 % (21.0-51.0); %Neutrophils 50.2 % (42.0-75.0); Hemoglobin 10.3 g/dL (12.0-16.0); Mean Corpuscular HGB CONC 32.9 g/dL (32.0-36.0); Mean Corpuscular Hemoglobin 33.1 pg (27.0-31.0); Mean Platelet Volume 7.4 fL (7.4-10.4); Platelet Count 151 thou/uL (130-400); RBC Distribution Width 12.4 % (11.5-14.5); Red Blood Cell (RBC) Count 3.09 mill/uL (4.20-5.40)
[2017-10-31 02:57] LABS: Troponin I 0.053 ng/mL (< 0.028)
[2017-10-31] MEDS ORDERED: Acetaminophen 500 MG TAB PO PRN ×2 (04:08)
[2017-10-31] MEDS: Benzonatate 100 MG CAP PO PRN ×2 (04:13→08:11)
[2017-10-31 04:50] LABS: Anion Gap 14 mmol/L (10-20); BUN (Urea Nitrogen) 19 mg/dL (9.8-20.1); Calc. Creatinine Clearance 0 mL/min (70-130); Calcium 8.8 mg/dL (7.8-10.44); Carbon Dioxide 24 mmol/L (23-31); Chloride 107 mmol/L (98-107); Estimated GFR-MDRD 48; Glucose 81 mg/dL (83-110); Sodium 141 mmol/L (136-145)
[2017-10-31] MEDS: Nebivolol HCl 5 MG TAB PO SCH (08:09)
[2017-10-31] MEDS: Oseltamivir 75 MG CAP PO SCH (08:09)
[2017-10-31 08:37] LABS: Troponin I 0.048 ng/mL (< 0.028)
[2017-10-31] MEDS ORDERED: Clopidogrel Bisulfate 75 MG TAB PO SCH (09:00)
[2017-10-31] MEDS ORDERED: Aspirin 81 mg Enteric Coated Tablet PO SCH (09:00)
[2017-10-31] MEDS ORDERED: Ondansetron HCl/PF 4 MG/2 ML Vial IVP SCH (10:15)
--- NOTE | 2017-10-31 13:15 | PDOC.PN ---
- Subjective Encounter Start Date: 10/31/17 Encounter Start Time: 08:00 Pt seen for followup re: syncope. Reports pleuritic chest pain. Cough+. Nausea+. - Objective Vital Signs & Weight: Vital Signs (12 hours) Temp Pulse Resp BP BP BP BP 10/31/17 10:29 146/67 H 10/31/17 10:00 98.1 F 69 20 10/31/17 09:16 69 198/84 H 10/31/17 08:45 98.1 F 70 16 200/78 H 206/84 H 10/31/17 03:48 97.8 F 62 16 146/64 H BP Pulse Ox 10/31/17 10:29 10/31/17 10:00 10/31/17 09:16 10/31/17 08:45 179/69 H 92 L 10/31/17 03:48 92 L Weight Admit Weight 101 lb 3.2 oz I&O: 10/30/17 10/31/17 11/01/17 06:59 06:59 06:59 Intake Total 698 Output Total 600 Balance 98 Result Diagrams: 10/31/17 02:24 10/31/17 02:24 Phys Exam - Physical Examination Constitutional: NAD HEENT: moist MMs Neck: supple Respiratory: clear to auscultation bilateral Cardiovascular: RRR Gastrointestinal: soft Neurological: moves all 4 limbs Psychiatric: normal affect Skin: no rash Dx/Plan (1) Syncope Code(s): R55 - SYNCOPE AND COLLAPSE Status: Acute (2) Nausea & vomiting Code(s): R11.2 - NAUSEA WITH VOMITING, UNSPECIFIED Status: Acute (3) CAD (coronary artery disease) Code(s): I25.10 - ATHSCL HEART DISEASE OF [place] CORONARY ARTERY W/O ANG PCTRS Status: Chronic (4) Hyperlipidemia Code(s): E78.5 - HYPERLIPIDEMIA, UNSPECIFIED Status: Chronic (5) Hypertension Code(s): I10 - ESSENTIAL (PRIMARY) HYPERTENSION Status: Chronic - Plan * . Check CTA chest to r/o PE. Await cardiology consult. Monitor vital signs, titrate antihypertensives as needed. PRN Zofran. Review of Systems - Review of Systems Constitutional: negative: fever, chills, sweats, weakness, malaise Respiratory: Cough, Pleuritic Pain. negative: Dry, Shortness of Breath, Hemoptysis, SOB with Excertion, Sputum, Wheezing Cardiovascular: negative: chest pain, palpitations, orthopnea, paroxysmal nocturnal dyspnea, edema, light headedness Gastrointestinal: Nausea, Vomiting. negative: Abdominal Pain, Diarrhea, Constipation, Melena, Hematochezia Skin: negative: Rash, Lesions, Harjit, Bruising - Medications/Allergies Allergies/Adverse Reactions: Allergies Allergy/AdvReac Type Severity Reaction Status Date / Time ciprofloxacin [From Cipro] Allergy Hives Verified 10/29/17 03:46 ciprofloxacin HCl Allergy Hives Verified 10/29/17 03:46 [From Cipro] codeine Allergy Hives Verified 10/29/17 03:46 hydrocodone Allergy Verified 10/29/17 03:46 meperidine HCl [From Demerol] Allergy nausea/vomi Verified 10/29/17 03:46 ting Penicillins Allergy Verified 10/29/17 03:46 promethazine HCl Allergy went wild, Verified 10/29/17 03:46 [From Phenergan] crazy Medications: Current Medications Acetaminophen (Tylenol) 500 mg PO Q4H PRN PRN Reason: Headache/Fever or Pain Acetaminophen (Tylenol) 1,000 mg PO Q4H PRN PRN Reason: Headache/Fever or Pain Last Admin: 10/31/17 04:13 Dose: 1,000 mg Aspirin (Ecotrin) 81 mg PO DAILY [facility] Last Admin: 10/31/17 08:09 Dose: 81 mg Benzonatate (Tessalon) 100 mg PO Q4H PRN PRN Reason: Cough Last Admin: 10/31/17 08:11 Dose: 100 mg Calcium Carbonate (Tums) 1,000 mg PO Q4H PRN PRN Reason: Heartburn or Indigestion Clopidogrel Bisulfate (Plavix) 75 mg PO DAILY [facility] Last Admin: 10/31/17 08:09 Dose: 75 mg Docusate Sodium (Colace) 100 mg PO BIDPRN PRN PRN Reason: Constipation Hydralazine HCl (Apresoline) 10 mg SLOW IVP Q4H PRN PRN Reason: Systolic BP > 180 Last Admin: 10/31/17 09:16 Dose: 10 mg Sodium Chloride (Normal Saline 0.9%) 1,000 mls @ 60 mls/hr IV .[id number] [facility] Stop: 11/01/17 02:13 Last Admin: 10/30/17 22:37 Dose: 1,000 mls Nebivolol (Bystolic) 5 mg PO BID [facility] Last Admin: 10/31/17 08:09 Dose: 5 mg Nitroglycerin (Nitrostat) 0.4 mg SL Q5MIN PRN PRN Reason: Chest Pain Oseltamivir Phosphate (Tamiflu) 75 mg PO BID [facility] Last Admin: 10/31/17 08:09 Dose: 75 mg Phenol (Chloraseptic Felicity 180 Ml Bot) 0 ml PO PRN PRN PRN Reason: Sore Throat Phenytoin Sodium (Dilantin Er) 200 mg PO HS [facility] Last Admin: 10/30/17 22:45 Dose: 200 mg
--- NOTE | 2017-10-31 13:53 | PRG ---
DATE OF SERVICE: 10/31/2017 Ms. El is a pleasant 82-year-old woman with a long history of severe labile blood pressure, ort hostatic hypotension, recent flu, had a syncopal episode last night. The patient was brought to the hospital after she had a syncopal episode. Her daughter helped her go to the bathroom, she approached the commode to sit down, she was unable to void. She tried to get u p and sit in a chair and when she got up she had a syncopal episode. The EMS checked her blood press ure, it was 90/30, she was brought to the hospital last night. Recently, she has been diagnosed with the flu. PAST MEDICAL HISTORY: Previous transcutaneous aortic valve replacement and coronary disease best jaydon ated medically. PAST SURGICAL HISTORY: Previous transcutaneous aortic valve replacement. SOCIAL HISTORY: No tobacco or alcohol. MEDICATIONS PRIOR TO ADMISSION: Bystolic 5 mg a day, Zetia 10 mg a day, Plavix 75 mg a day, aspirin, amlodipine, clonidine. REVIEW OF SYSTEMS: CONSTITUTIONAL: No significant weight gain or loss. VISION: No changes. HEARING: No changes. PULMONARY: No cough or wheezing. PHYSICAL EXAMINATION: VITAL SIGNS: The blood pressure is extremely labile as is frequently the case, it has been as low as 146/64 as high as 278. EYES: Sclerae nonicteric. Mouth mucous membranes moist. NECK: Supple. No lymphadenopathy. LUNGS: Clear, no wheezing, rales or rhonchi. CARDIAC: Normal S1, normal S2. I do not hear a murmur, rub or gallop. ABDOMEN: Soft, nontender. EXTREMITIES: No clubbing or cyanosis. There is no edema. Troponin levels slightly elevated at 0.053. BNP is 442. Recent echocardiogram showed normal transcu taneous aortic valve with normal ejection fraction. ASSESSMENT: 1. Labile hypertension, longstanding problem. 2. Syncopal episode secondary labile hypertension. PLAN: 1. Okay with me to be released home. 2. The patient should sit down quickly if she feels lightheaded, really nothing further to be done a t this point. 3. Continue Tamiflu.
--- NOTE | 2017-10-31 15:20 | CT ---
CT ANGIOGRAM CHEST INCLUDING 3D RENDERING: HISTORY: An 82-year-old female with chest pain for several days, elevated D-dimer. FINDINGS: There are some small bilateral pleural effusion changes. There are some patchy linear and interstiti al and reticulonodular parenchymal changes noted bilaterally with some patchy alveolar nodular parenc hymal changes in the right lung. These are nonspecific but raise concern for patchy interstitial pne umonia or pneumonitis versus chronic changes versus some asymmetric interstitial edema. No significa nt CT evidence for acute pulmonary embolism. Three-vessel coronary calcific disease. Aortic valve e ndostent in the aortic valve region. IMPRESSION: Patchy bilateral interstitial, linear, and reticulonodular and alveolar nodular parenchymal changes i n both lungs, nonspecific. Possibilities include that of some patchy atypical pneumonia or pneumonit is or other patchy infectious or inflammatory process, some of this may well represent some chronic u nderlying change. No significant CT evidence for acute pulmonary embolism. Other findings as above. POS: [facility]
[2017-10-31] MEDS ORDERED: Iopamidol 370 76% 100 ML VIAL ONE (15:43)
[2017-10-31] MEDS ORDERED: Azithromycin 250 MG TAB PO SCH (15:45)
[2017-10-31 16:05] VITALS: BP 151/65; TEMP 99.2
[2017-10-31 16:09] VITALS: BMI 22.6
--- NOTE | 2017-11-01 01:12 | DIS ---
PRIMARY CARE PROVIDER: MARIA DE JESUS Gold. DATE OF ADMISSION: 10/30/2017 DATE OF DISCHARGE: 10/31/2017 DISCHARGE DIAGNOSES: 1. Syncope. 2. Bilateral patchy infiltrates on CT scan of the chest, infectious versus noninfectious. CONDITION OF PATIENT ON THE DAY OF DISCHARGE: Stable. I assessed Ms. El on the day of dischar ge. Please refer to my daily progress note for further information regarding this [id number] encou nter. DISCHARGE MEDICATIONS: Her lisinopril dose was decreased to 10 mg daily. She has been started on az ithromycin 500 mg on 10/31/2017 and 250 mg daily for the next 4 days. Otherwise, her home medication s are being continued as dictated in the history and physical note from 10/30/2017. HOSPITAL COURSE: Ms. El is a pleasant 82-year-old lady who was admitted to [facility] following a syncopal episode on 10/30/2017. She was monitored on telemetry. She was seen by Cardiology Service, who know her from prior to this admission. Cardiology Service recommende d decreasing lisinopril dose to 10 mg daily. Because she had an elevated D-dimer, she underwent CT angiogram of the chest. Preliminary report ind icates that there is no evidence of pulmonary embolism, but she has patchy bilateral infiltrates, dif ferential diagnosis includes chronic noninfectious versus acute and infectious causes. She was alrea dy on Tamiflu. She is being started on azithromycin prior to discharge home. She is advised to foll ow up with her primary care provider in 3-5 days. On the day of discharge, she has white count of 4000, hemoglobin 10.3, platelet count 151,000, normal electrolytes and creatinine 1.10. Many thanks for allowing me to participate in your patient's care. Please feel free to contact me wi th any questions or concerns. DISCHARGE DESTINATION: Home.
[2017-11-01] MEDS ORDERED: Lisinopril 10 MG TAB PO SCH (09:00)
[2017-11-01] MEDS ORDERED: Azithromycin 250 MG TAB PO SCH (09:00)
[2017-11-01] MEDS ORDERED: Nebivolol HCl 5 MG TAB PO SCH (09:00)
== END 2017-10-31 17:10 | disposition home or self-care (01) ==
LOC: ERS 14:59 → 2SW 19:41
PROVIDERS: ADMIT Internal Medicine; ATTEND Internal Medicine
DX: R55 Syncope and collapse (principal); R91.8 Other nonspecific abnormal finding of lung field; R79.1 Abnormal coagulation profile; Z86.73 Personal history of transient ischemic attack (TIA), and cerebral infarction without residual deficits; I10 Essential (primary) hypertension; I25.10 Atherosclerotic heart disease of native coronary artery without angina pectoris; R79.89 Other specified abnormal findings of blood chemistry; J10.1 Influenza due to other identified influenza virus with other respiratory manifestations; E78.5 Hyperlipidemia, unspecified; Z79.02 Long term (current) use of antithrombotics/antiplatelets; Z79.82 Long term (current) use of aspirin; Z79.899 Other long term (current) drug therapy; Z88.1 Allergy status to other antibiotic agents; Z88.5 Allergy status to narcotic agent; Z88.0 Allergy status to penicillin; Z88.8 Allergy status to other drugs, medicaments and biological substances; Z95.2 Presence of prosthetic heart valve; Z96.659 Presence of unspecified artificial knee joint; Z90.710 Acquired absence of both cervix and uterus; Z90.49 Acquired absence of other specified parts of digestive tract; Z98.890 Other specified postprocedural states
CPT/HCPCS: 51701; 71045; 71275; 80048; 80053; 82550; 82553; 83605; 83690; 83735; 83880; 84484 ×4; 85025 ×2; 85379; 85610; 85730; 86850; 86900; 86901; 96361 ×3; 96374; 96375; 99285; G0378; 36415; 81003; 81015; 96360; A4353; J0360; J2405

== ENCOUNTER 2018-01-10 17:22 | Inpatient (IN) | payer MEDICARE, BC ==
[2018-01-10 18:41] LABS: #Eosinphils 0.1 thou/uL (0.0-0.7); #Lymphocytes 1.5 thou/uL (1.20-3.40); #Monocytes 0.7 thou/uL (0.11-0.59); #Neutrophils 6.8 thou/uL (1.40-6.50); %Basophils 0.5 % (0.0-1.0); %Eosinophils 1.6 % (0.0-10.0); %Lymphocytes 16.2 % (21.0-51.0); %Monocytes 7.3 % (0.0-10.0); %Neutrophils 74.5 % (42.0-75.0); Hemoglobin 10.6 g/dL (12.0-16.0); Mean Corpuscular HGB CONC 33.5 g/dL (32.0-36.0); Mean Corpuscular Hemoglobin 32.2 pg (27.0-31.0); Mean Corpuscular Volume 96.1 fl (81.0-99.0); Mean Platelet Volume 7.3 fL (7.4-10.4); Platelet Count 208 thou/uL (130-400); RBC Distribution Width 11.8 % (11.5-14.5); Red Blood Cell (RBC) Count 3.29 mill/uL (4.20-5.40); White Blood Cell (WBC) Count 9.2 thou/uL (4.8-10.8)
[2018-01-10 18:48] LABS: Prothrombin Time 13.2 SEC (12.0-14.7)
[2018-01-10 19:04] LABS: ALT (SGPT) 17 U/L (8-55); AST (SGOT) 23 U/L (5-34); Albumin 3.7 g/dL (3.4-4.8); Alkaline Phosphatase 117 U/L (40-150); Anion Gap 16 mmol/L (10-20); BUN (Urea Nitrogen) 53 mg/dL (9.8-20.1); Bilirubin, Total Less than 0.2 mg/dL (0.2-1.2); Calc. Creatinine Clearance 0 mL/min (70-130); Calcium 9.1 mg/dL (7.8-10.44); Carbon Dioxide 24 mmol/L (23-31); Chloride 100 mmol/L (98-107); Estimated GFR-MDRD 48; Globulin 2.3 g/dL (2.4-3.5); Glucose 93 mg/dL (83-110); Lipase 48 U/L (8-78); Potassium 4.6 mmol/L (3.5-5.1); Sodium 135 mmol/L (136-145)
--- NOTE | 2018-01-10 19:17 | RAD ---
RADIOGRAPH CHEST 1 VIEW: 01/10/18 HISTORY: 82-year-old female status post acute chest trauma from fall. FINDINGS: There are no air space densities, pulmonary edema, pneumothorax, or cardiomegaly. The lateral costop hrenic angles are sharp. IMPRESSION: 1. No acute cardiopulmonary findings. 2. Aortic valve endograft stent. 3. Atherosclerosis of thoracic aorta. karolyn [] POS: [facility]
--- NOTE | 2018-01-10 19:34 | CT ---
CERVICAL SPINE CT 01/10/18 INDICATION: Posttraumatic neck injury, pain. COMPARISON: 11/29/14. FINDINGS: Craniocervical junction is intact. There is multilevel degenerative change throughout the cervical sp ine. There is spondylolisthesis, grade I of C3-4 level, grossly stable. No interval compression fract ure. Trace spondylolisthesis at C7-T1. IMPRESSION: Multilevel degenerative change cervical spine without acute fracture evident. Incidental note of prominent and heterogeneous right thyroid lobe. This likely relates to underlying thyroid nodule. POS: C
--- NOTE | 2018-01-10 19:37 | CT ---
HEAD CT NONCONTRAST: 01/10/18 COMPARISON: 10/09/17 INDICATION: Fall with head injury. FINDINGS: There is a small extra-axial hemorrhage overlying the anterior left convexity. Multifocal hypoattenua tion again seen compatible with chronic microvascular ischemic disease and areas of supratentorial an d infratentorial encephalomalacia. There is parenchymal atrophy with compensatory dilatation of the v entricular system. Prominent posterior right scalp hematoma seen. IMPRESSION: Small extra-axial hemorrhage overlying the anterior high left cerebral convexity. Recommend neurosurg ical consultation, as well as imaging followup. Telephone call to ER physician, Annette Jimenez, provided at time of dictation, 1820 hours, 01/10/18. Code CR
[2018-01-10 19:39] LABS: Bilirubin Negative (Negative); Blood, Urine Negative (Negative); Clarity CLEAR (Clear); Glucose, Urine (Dipstick) Negative (Negative); Leukocyte Moderate (Negative); Nitrite Negative (Negative); Protein, Urine (Dipstick) Negative (Neg-Trace); Specific Gravity, Urine 1.017 (1.002-1.036); Urobilinogen 0.2 mg/dL (0.2-1.0); pH, Urine 5.5 (5.0-9.0)
[2018-01-10 19:41] LABS: Bacteria/HPF None Seen HPF (None Seen); Hyaline Casts/LPF 0-3 HYALINE CAST LPF (0-3 Hyaline); Pathc Cast-AUWi Flag 0.14 (0-2.49); RBC/HPF 0-3 HPF (0-3); Squamous Epithelial 0-3 HPF (0-3)
--- NOTE | 2018-01-10 19:58 | CON ---
DATE OF CONSULTATION: 01/10/2018 This is Mona Hays PA-C with Neurosurgery Service. ATTENDING PHYSICIAN: Dr. Rehan Peña. HISTORY OF PRESENT ILLNESS: Patient is an 82-year-old female with past medical history of coronary artery disease, hypertension, valvular heart disease with artificial heart valve, TIA on Shaylee vix and aspirin, who presented to the emergency department after mechanical fall. Fall was unwitness ed. Patient denies any LOC. Patient reports that she simply lost her footing. She has no complaint s at this time, but it was noted to have a large hematoma on the posterior aspect of the scalp. CT h ead was done on arrival, which is notable for a left frontal cerebral contusion. There is no midline shift and seen the patient at the bedside. She has a GCS of 15. She is A&O x4. She has no focal n eurologic deficits. The Trauma Service was also notified. PAST MEDICAL HISTORY: Coronary artery disease, valvular heart disease, artificial heart valve, hyper tension, TIA, dementia. PAST SURGICAL HISTORY: Multiple breast biopsies, appendectomy, hysterectomy, back surgery, right jannet ulder surgery, right knee replacement. SOCIAL HISTORY: Patient lives with her daughter. She does not smoke, drink, or use any drugs. REVIEW OF SYSTEMS: Per HPI. ALLERGIES: The patient is allergic to CIPROFLOXACIN, CODEINE, DEMEROL, HYDROCODONE, MEPERIDINE, PENI CILLIN, PROMETHAZINE, TRAMADOL. PHYSICAL EXAMINATION: CONSTITUTIONAL: Patient appears comfortable, no acute distress. VITAL SIGNS: BP is 175/47, pulse is 72, respiration rate is 22, patient is 98% on room air, and temp erature is 98.2. HEAD: She has a large hematoma in the posterior aspect of the scalp. EYES: PERRLA. Extraocular movements intact. ENT: Oral mucosa is pink, intact, moist. No evidence of injury. NECK: Nontender to palpation. Free active range of motion. RESPIRATORY: She has a symmetric chest expansion, no evidence of dyspnea. CARDIOVASCULAR: Regular rate and rhythm. MUSCULOSKELETAL: She has a small laceration to the right, although no deformities to the extremities . Free active range of motion to extremities, no focal motor weakness or reflex asymmetry. NEUROLOGIC: GCS of 15, A&O x4. Normal cranial nerve exam, normal speech. Nonfocal neurologic defic its are appreciated. ASSESSMENT AND PLAN: Patient appears to have acute left frontal cerebral contusion after a mechanica l fall. This appears to be construe injury. Patient is on aspirin and Plavix, and we will discontin ue these medications at this time. The patient will be admitted to the ICU under the Trauma Service. We recommend q.1 neuro checks and close blood pressure control with goal systolic blood pressure of less than 140. Head of bed should be elevated to 30 degrees. We will plan to repeat noncontrast he ad CT first thing in the morning, which I have ordered. I have discussed this plan with Dr. Peña is in agreement. Please reach out to Neurosurgery Service for additional questions or concerns.
--- NOTE | 2018-01-10 20:44 | RAD ---
RADIOGRAPH RIGHT HIP 2 VIEWS: 01/10/18 HISTORY: 82-year-old female status post acute right hip traumatic pain from fall. FINDINGS: No fracture is identified, but the severe osteopenia could mask a fracture. Hip joint space is mainta ined with little or no degenerative changes. Cluster of surgical clips in the right groin. IMPRESSION: 1. No fracture identified. 2. If symptoms do not improve by next week, MRI would be the most sensitive modality to search f or occult fractures. 3. Severe osteopenia. POS: [facility]
[2018-01-10] MEDS ORDERED: Acetaminophen 1,000 MG in Premix Bag 1 BAG IVPB SCH (21:00)
[2018-01-10] MEDS ORDERED: Acetaminophen 325 MG TAB PO PRN (22:04)
[2018-01-10] MEDS ORDERED: Ondansetron HCl/PF 4 MG/2 ML Vial IVP PRN (22:04)
[2018-01-10] MEDS ORDERED: Ondansetron ODT 4 MG TAB SL PRN (22:04)
[2018-01-10 22:21] VITALS: BMI 21.7
--- NOTE | 2018-01-10 22:45 | HP ---
DATE OF ADMISSION: 01/10/2018 REQUESTING PHYSICIAN: Annette Jimenez M.D. ATTENDING SURGEON: Ernesto Rasheed M.D. CONSULTATIONS: Neurosurgery, Dr. Peña. HISTORY OF PRESENT ILLNESS: The patient is an 82-year-old woman who reportedly at home alone when she turned quickly and fell, landing on her right side. The patient states that she struck her head on the floor. She denied loss of consciousness, because of her hip pain, she was unable to stand immediately. The patient forgets that she has a Life Alert, but she was able to call her daughter, who notified EMS and patient was brought to the emergency department, where she underwent evaluation, examination and was noted to have left frontal cerebral contusions. At which time, we were asked to evaluate the patient for admission and obtain neurosurgical consultation. The remainder of her scans were unremarkable. CURRENT MEDICATIONS: Lisinopril, Bystolic, Zetia, aspirin, clonidine, amlodipine, cetirizine, propranolol, sertraline, duloxetine, Dilantin, Plavix, Crestor. ALLERGIES: CIPROFLOXACIN, CODEINE, DEMEROL, HYDROCODONE, MEPERIDINE, PENICILLINS, and PROMETHAZINE. The daughter states that most of the medications ' side effect is itching without hives, but does note that there was incidence of reported a cardiac incident after receiving promethazine. PAST MEDICAL HISTORY: Coronary artery disease, valvular heart disease, artificial heart valve, hypertension, TIA, dementia, anxiety, and depression. PAST SURGICAL HISTORY: Multiple breast excisions that the patient reports that all benign cysts, appendectomy, hysterectomy, back surgery x2, right total knee replacement, and right shoulder surgery. SOCIAL HISTORY: The patient currently resides with her daughter and her 3 sons. Denies tobacco, drug, or alcohol use. Ten point review of symptoms is negative unless otherwise noted. PHYSICAL EXAMINATION: VITAL SIGNS: Blood pressure 148/31, heart rate 70, respirations 16, oxygen saturation is 95% on room air, and temperature is 98.0. GENERAL: The patient is resting comfortably in bed. She is awake, alert, oriented x3. Carpio coma scale of 15 and appropriate. Her chief complaint is headache. HEENT: Head: The patient has a contusion to the posterior aspect of her scalp without laceration. Eyes: PERRLA. Extraocular motion intact bilaterally. Ears: Atraumatic without discharge. Nose: Atraumatic without discharge. OROPHARYNX: Clear. NECK: Minimally tender on the right paraspinous area. There is no midline tenderness, no radiculopathy. LUNGS: Clear to auscultation bilaterally with good inspiratory and expiratory effort. HEART: Regular rate and rhythm. ABDOMEN: Soft, flat, nontender with active bowel sounds. Pelvis is stable. The patient has tenderness to her right hip. EXTREMITIES: Neurovascularly intact x4 with full active range of motion. BACK: Nontender and atraumatic. LABORATORY FINDINGS: White blood cell count 9.2, hemoglobin 10.6, hematocrit 31.6, platelets 208. Sodium 135, potassium 4.6, chloride 100, CO2 of 24, BUN 53 , creatinine 1.10, glucose 93. LFTs are unremarkable. INR is 1.0, PT 13.2. RADIOGRAPHIC REPORTS: CT of the brain without contrast shows a small extraaxial hemorrhage overlying the anterior left cerebral convexity. CT of the C-spine without contrast shows multilevel degenerative changes without acute fracture. AP chest shows no acute cardiopulmonary findings. Right hip radiograph showed no fracture identified. ASSESSMENT AND PLAN: 1. Status post ground level fall. 2. Acute left frontal cerebral contusion. 3. History of aspirin use. 4. Multiple comorbidities. 5. Acute pain secondary to trauma. Plan will be to admit the patient to the Critical Care Unit for q.1 hour neuro checks per Neurosurgery's recommendations and also we will have repeat CT in the morning sooner as indicated by her neurologic exams. The patient will have nonnarcotic pain medication, antiemetics, pulmonary toilet, gastritis, mechanical DVT prophylaxis. Evaluation, examination, laboratory, and radiographic findings were all discussed with Dr. Rasheed at the time of dictation. DANIELLE
[2018-01-11] MEDS ORDERED: hydrALAZINE 20 MG/ML VIAL SLOW IVP PRN (00:43)
[2018-01-11] MEDS ORDERED: Ondansetron HCl/PF 4 MG/2 ML Vial IVP PRN (00:43)
[2018-01-11] MEDS ORDERED: Dextrose 5% in Water 1,000 ML IV PRN (00:43)
[2018-01-11] MEDS ORDERED: Ondansetron ODT 4 MG TAB PO PRN (00:43)
[2018-01-11] MEDS ORDERED: diphenhydrAMINE 25 MG CAP PO PRN (00:43)
[2018-01-11] MEDS ORDERED: Dextrose 50% Abboject 50 ML SYRINGE SLOW IVP PRN (00:43)
[2018-01-11] MEDS: Sodium Chloride 0.9% 1,000 ML IV SCH ×2 (03:49→14:46)
[2018-01-11 04:16] LABS: #Eosinphils 0.2 thou/uL (0.0-0.7); #Lymphocytes 1.4 thou/uL (1.20-3.40); #Monocytes 0.6 thou/uL (0.11-0.59); #Neutrophils 5.1 thou/uL (1.40-6.50); %Basophils 0.5 % (0.0-1.0); %Eosinophils 2.7 % (0.0-10.0); %Lymphocytes 19.2 % (21.0-51.0); %Monocytes 7.8 % (0.0-10.0); %Neutrophils 69.8 % (42.0-75.0); Hemoglobin 9.9 g/dL (12.0-16.0); Mean Corpuscular HGB CONC 33.8 g/dL (32.0-36.0); Mean Corpuscular Hemoglobin 32.3 pg (27.0-31.0); Mean Corpuscular Volume 95.6 fl (81.0-99.0); Mean Platelet Volume 7.5 fL (7.4-10.4); Platelet Count 197 thou/uL (130-400); RBC Distribution Width 11.6 % (11.5-14.5); Red Blood Cell (RBC) Count 3.05 mill/uL (4.20-5.40); White Blood Cell (WBC) Count 7.2 thou/uL (4.8-10.8)
[2018-01-11 04:29] LABS: Anion Gap 10 mmol/L (10-20); BUN (Urea Nitrogen) 48 mg/dL (9.8-20.1); Calc. Creatinine Clearance 28 mL/min (70-130); Calcium 9.1 mg/dL (7.8-10.44); Carbon Dioxide 30 mmol/L (23-31); Chloride 101 mmol/L (98-107); Estimated GFR-MDRD 48; Glucose 110 mg/dL (83-110); Magnesium 2.3 mg/dL (1.6-2.6); Phosphorus 4.7 mg/dL (2.3-4.7); Potassium 4.4 mmol/L (3.5-5.1); Sodium 137 mmol/L (136-145)
[2018-01-11] MEDS: Acetaminophen 1,000 MG in Premix Bag 1 BAG IVPB SCH ×3 (05:17→19:49)
--- NOTE | 2018-01-11 07:46 | CT ---
PRELIMINARY REPORT/[facility]/EMERGENCY AFTER HOURS PROCEDURE: EXAM: CT Head Without Intravenous Contrast EXAM DATE/TIME: 01/11/2018 6:16 AM CLINICAL HISTORY: 82 years old, female; Injury or trauma; Fall; Follow-up exam; Additional info: This is a f/u post fal l. TECHNIQUE: Axial computed tomography images of the head/brain without intravenous contrast. COMPARISON: CT Brain WO Con 2018-01-10 18:06 FINDINGS: Brain: Left frontal subdural hematoma near the convexity measuring up to 6 mm in thickness. Prominent sulci. Patchy hypodensity of the cerebral white matter which are nonspecific but likely sec ondary to microangiopathic changes. Remote ischemic change in the left occipital lobe and cerebellum. Bilateral basal ganglia and thalamic lacunes are present. Ventricles: The ventricles are prominent secondary to diffuse volume loss/atrophy. Bones/joints: Unremarkable. No acute fracture. Soft tissues: There is moderate soft tissue swelling over the right parietal bone. The underlying cipriano varium is intact. Sinuses: Unremarkable as visualized. No acute sinusitis. Mastoid air cells: Unremarkable as visualized. No mastoid effusion. IMPRESSION: 1. Left frontal subdural hematoma near the convexity measuring up to 6 mm in thickness. There has bee n no significant change since previous exam. 2. Remainder of findings as described above. Thank you for allowing us to participate in the care of your patient. Dictated and Authenticated by: Christina Fuentes MD 01/11/2018 6:57 AM Central Time ([place] & [place]) FINAL REPORT NONCONTRAST HEAD CT: Date: 01/11/18 COMPARISON: 01/10/18. HISTORY: Follow-up exam. Intracranial hemorrhage. TECHNIQUE: Noncontrast head CT is performed from skull base to skull vertex. FINDINGS: This report is in agreement with the preliminary report by Dea. Persistent left frontal subdural hem atoma. Stable post-traumatic change involving the right scalp. No significant interval change. POS: [facility]
[2018-01-11] MEDS ORDERED: Prevnar 13-Val Conj/PF 0.5 ML SYRINGE IM ONE (09:00)
[2018-01-11] MEDS: Famotidine 20 MG TAB PO SCH (09:15)
[2018-01-11] MEDS: Sulfameth/Trimethoprim DS 800-160mg TAB PO SCH ×2 (09:16→20:19)
[2018-01-11] MEDS ORDERED: cloNIDine 0.1 MG TAB PO PRN (09:54)
--- NOTE | 2018-01-11 10:13 | CON ---
DATE OF CONSULTATION: 01/11/2018 REASON FOR CONSULTATION: 1. Subdural hematoma, previous transcutaneous aortic valve replacement. 2. Labile hypertension. 3. Coronary artery disease. HISTORY: Ms. El is a very pleasant 82-year-old woman with a long history of labile hypertensio n as well as a previous transcutaneous aortic valve replacement. The patient underwent successful tr anscutaneous aortic valve replacement about 2-1/2 years ago in [place]. She benefited greatly from t hat. She has also had longstanding labile blood pressure, which has been difficult to control. Yest erday she was at home, apparently, she got up to try to go someplace and fell and got a subdural karl jimi. I have been consulted about the antiplatelet therapy. MEDICATIONS AT HOME: 1. She takes Bystolic 10 mg a day. 2. Lisinopril 20 mg at bedtime. 3. Amlodipine 2.5 mg at bedtime. On that regimen, the patient usually systolic blood pressures occasionally up in the 180 systolic and the diastolic side as well with the other blood pressure is usually 120 systolic. She was on aspirin and Plavix prior to admission. REVIEW OF SYSTEMS: CONSTITUTIONAL: No significant weight gain or loss. VISION: No changes. HEARING: No changes. PULMONARY: No cough or wheezing. GASTROINTESTINAL: No nausea, vomiting, diarrhea. SKIN: No rashes. NEUROLOGIC: No unilateral weakness or numbness. PSYCHIATRIC: No unusual depression or anxiety. SOCIAL HISTORY: No alcohol or tobacco. She has a very supportive daughter who has been tremendously helpful to her. PHYSICAL EXAMINATION: GENERAL: This is a pleasant elderly woman, short statured, 4 feet 8 inches tall, 97 pounds. HEENT: Eyes; sclerae nonicteric. Mouth; mucous membranes moist. NECK: Supple, no lymphadenopathy. LUNGS: Clear. CARDIAC: Normal S1, normal S2. ABDOMEN: Soft, nontender. EXTREMITIES: No clubbing or cyanosis. There is no edema. PERTINENT LABORATORY DATA: Hemoglobin is 9.9, creatinine 1.09. A CT scan shows subdural hematoma 6 mm in thickness, it is frontal. ASSESSMENT: 1. Subdural hematoma following a fall. 2. Previous transthoracic transcutaneous aortic valve replacement with a good outcome. 3. Orthostatic hypotension and labile hypertension. 4. Coronary artery disease, stable. PLAN: 1. We will stop Plavix at this point, no reason to continue long-term Plavix. 2. Okay with me to stay off aspirin for 2 weeks and start back at 81 mg a day. 3. It would probably be helpful to have the patient on the stroke unit where her blood pressure and heart rate could be monitored closely.
[2018-01-11] MEDS: Nebivolol HCl 5 MG TAB PO SCH (10:35)
--- NOTE | 2018-01-11 17:30 | PRG ---
DATE OF SERVICE: 01/11/2018 ATTENDING PHYSICIAN: Dr. Giuseppe Milton. SUBJECTIVE: Ms. El was admitted one day ago, status post ground level fall. She has valvular heart disease with artificial heart valve and was on Plavix and aspirin. CT scan identified a left frontal cerebral contusion. She was admitted to the hospital by Trauma services and monitored in the ICU. A CT scan this morning was stable. She did not have any changes in her neurologic status. She remained GCS 15. Neurosurgery did not recommend any neurosurgical intervention. OBJECTIVE: VITAL SIGNS: Pulse 81, blood pressure 114/40, O2 sat 99% on room air. GENERAL: Elderly female lying in bed, in no acute distress, nontoxic appearing. HEENT: Bruising to the right periorbital area. CARDIOVASCULAR: Heart sounds normal, regular rate and rhythm. PULMONARY: Clear to auscultation bilaterally. No respiratory distress. ABDOMEN: Soft, nontender, nondistended. EXTREMITIES: Moves all extremities well. Neurovascularly intact. Cap refill brisk. NEUROLOGIC: GCS of 15. Awake, alert, and oriented x3. CT scan with no significant changes from prior. ASSESSMENT: 1. Status post ground level fall. 2. Left frontal subdural hematoma, stable. 3. History of heart disease with valve replacement, on Plavix and aspirin. PLAN: 1. Neurosurgery recommends no neurosurgical intervention. 2. Dr. Stewart consulted by Neurosurgery. Dr. Stewart is okay with stopping Plavix at this point and to stay off aspirin for 2 weeks. 3. Transfer patient to telemetry stroke unit for further monitoring. 4. Case management consult for placement rehabilitation versus detention facility. 5. No chemical deep venous thrombosis prophylaxis. 6. Speech therapy evaluated, recommend a regular diet. 7. Discontinue IV fluids. The patient was reviewed with Dr. Milton, who agrees with plan. [facility]
[2018-01-11] MEDS ORDERED: Clopidogrel Bisulfate 75 MG TAB ONE (18:03)
[2018-01-11] MEDS ORDERED: Lisinopril 10 MG TAB PO SCH (21:00)
[2018-01-11] MEDS ORDERED: Amlodipine 5 MG TAB PO SCH (21:00)
[2018-01-12] MEDS: Sulfameth/Trimethoprim DS 800-160mg TAB PO SCH (08:37)
[2018-01-12] MEDS: Famotidine 20 MG TAB PO SCH (08:37)
[2018-01-12] MEDS: Nebivolol HCl 5 MG TAB PO SCH (08:37)
--- NOTE | 2018-01-12 09:00 | PRG ---
DATE OF SERVICE: 01/12/2018 ATTENDING PHYSICIAN: Dr. Giuseppe Milton. SUBJECTIVE: Ms. El was admitted 2 days ago, status post ground level fall. She has valvular heart disease with artificial heart valve and was on Plavix and aspirin. She had a left frontal cerebral contusion. She was admitted to the hospital by Trauma Services and monitored in the ICU and subsequently transferred to the telemetry floor one day ago. Cardiology, Dr. Stewart, has been consulted and is following along. She remained a GCS of 15. Neurosurgery did not recommend any neurosurgical intervention and has signed off the case. OBJECTIVE: VITAL SIGNS: Temperature 98.7, pulse 65, respirations 14, O2 sat 95% on room air, blood pressure 144/80. GENERAL: Elderly female sitting up in bed in no acute distress, nontoxic appearing. HEENT: Bruising to the right periorbital area. CARDIOVASCULAR: Heart sounds normal, regular rate and rhythm. PULMONARY: Breath sounds clear to auscultation bilaterally. No respiratory distress. ABDOMEN: Soft, nontender, and nondistended. EXTREMITIES: Moves all extremities well. Neurovascularly intact. Cap refill brisk. NEUROLOGIC: GCS 15. Awake, alert, oriented x3. ASSESSMENT: 1. Status post ground level fall. 2. Left frontal subdural hematoma. No neurologic changes. 3. History of valvular heart disease with valve replacement, previously on Plavix and aspirin. PLAN: 1. Continue mobilizing with physical and occupational therapy. 2. Followed by Cardiology, Dr. Stewart, stop Plavix at this point and stay off aspirin for 2 weeks. 3. Patient has been in sinus rhythm on the telemetry unit. 4. Rehab screen entered. Discussed with rehabilitation inspector this morning. 5. No chemical DVT prophylaxis until cleared by Neurosurgery. 6. Transfer to rehab when cleared by Cardiology to be discharged. Patient was reviewed with Dr. Milton who agrees with plan. [facility]
[2018-01-12 12:04] VITALS: TEMP 98.1
[2018-01-12 12:16] VITALS: BP 162/70
--- NOTE | 2018-01-12 16:42 | DIS ---
DATE OF ADMISSION: 01/10/2018 DATE OF DISCHARGE: 01/12/2018 ADMITTING PHYSICIAN: Dr. Ernesto Rasheed. DISCHARGING PHYSICIAN: Dr. Giuseppe Milton CONSULTING PHYSICIAN: Dr. Peña, Neurosurgery. REASON FOR HOSPITALIZATION: An 82-year-old female with left frontal cerebral contusions. DISCHARGE DIAGNOSES: 1. Status post ground level fall. 2. Acute left frontal cerebral contusion. 3. History of Plavix and aspirin use. DISCHARGE MEDICATIONS: The patient may resume home medications. The patient is instructed to not take anticoagulants or antiplatelet medication for 2 weeks. FOLLOWUP: The patient is to follow up with Dr. Stewart, Cardiology and Dr. Peña, Neurosurgery. BRIEF HISTORY OF HOSPITALIZATION: Ms. El is an 82-year-old female who had a ground level fall in her home. She was noted to have cerebral contusions. Neurosurgery was consulted. She had previously been on Plavix and aspirin for aortic valve replacement. She was admitted to the hospital by Trauma Services. Dr. Peña was consulted. A followup brain CT was stable and Neurosurgery recommended no neurosurgical intervention. Dr. Stewart was consulted. Per Dr. Stewart's note the patient is to cease Plavix indefinitely. She may resume aspirin in 2 weeks. She is to follow up with Dr. Stewart and Dr. Peña in 3-4 weeks. Incidentally, a thyroid nodule was discovered on CT scan. She is to follow up with ENT for evaluation of thyroid nodule after discharge. The patient was reviewed with Dr. Milton who agrees with the plan. [facility]
--- NOTE | 2018-01-28 15:46 | EKG ---
Test Reason : Blood Pressure : / mmHG Vent. Rate : 071 BPM Atrial Rate : 071 BPM P-R Int : 172 ms QRS Dur : 078 ms QT Int : 430 ms P-R-T Axes : 060 -19 056 degrees QTc Int : 467 ms Normal sinus rhythm Normal ECG Confirmed by SILVIO Givens, CEFERINO ([id number]), photo editor URSULA BULLOCK ([id number]) on 01/28/2018 3:46:12 PM Referred By: Confirmed By:CEFERINO ANGUIANO M.D.
== END 2018-01-12 16:00 | DRG 87 ==
LOC: ERS 17:22 → CCU 21:46 → 2SE 01-11 15:39
PROVIDERS: ADMIT Specialist; ATTEND Specialist
DX: S06.5X0A Traumatic subdural hemorrhage without loss of consciousness, initial encounter (principal); F03.90 Unspecified dementia, unspecified severity, without behavioral disturbance, psychotic disturbance, mood disturbance, and anxiety; I10 Essential (primary) hypertension; I25.10 Atherosclerotic heart disease of native coronary artery without angina pectoris; W18.30XA Fall on same level, unspecified, initial encounter; Y92.019 Unspecified place in single-family (private) house as the place of occurrence of the external cause; Z88.1 Allergy status to other antibiotic agents; Z88.5 Allergy status to narcotic agent; Z88.0 Allergy status to penicillin; Z88.8 Allergy status to other drugs, medicaments and biological substances; Z95.2 Presence of prosthetic heart valve; Z86.73 Personal history of transient ischemic attack (TIA), and cerebral infarction without residual deficits; F41.9 Anxiety disorder, unspecified; F32.9 Major depressive disorder, single episode, unspecified; Z96.651 Presence of right artificial knee joint; G89.11 Acute pain due to trauma; Z79.01 Long term (current) use of anticoagulants; Z79.82 Long term (current) use of aspirin; I95.1 Orthostatic hypotension; S51.011A Laceration without foreign body of right elbow, initial encounter
CPT/HCPCS: 36415; 70450; 71045; 72125; 80048; 80053; 81003; 81015; 83690; 83735; 84100; 85025; 85610; 93005; 96374; A4216; G0390; G8978-GP-CL; G8979-GP-CI; G8987-GO-CK; G8988-GO-CJ; G8996-GN-CK; G8997-GN-CI; J0131; J0360; J2405

== ENCOUNTER 2018-04-26 14:13 | Emergency (ER) | payer MEDICARE, BC ==
--- NOTE | 2018-04-26 15:26 | CT ---
NONCONTRAST HEAD CT: COMPARISON: 01/11/18. HISTORY: The patient fell backward, hit head at home on bench. TECHNIQUE: Noncontrast head CT is performed from the skull base to the skull vertex. FINDINGS: No parenchymal hemorrhage. No extraaxial hematoma. No midline shift. Basilar cisterns are patent. Age-appropriate atrophy. Stable malacic change involving the medial left occipital parietal region. There are white matter hypodensities, likely due to chronic small-vessel ischemic change. Previous ly noted extraaxial hematoma along the left frontal convexity has resolved. No new areas of intrapar enchymal extraaxial hemorrhage. Calvarium is intact. Adequate aeration of the sinuses and mastoid a ir cells. Stable malacic change involving the left cerebellar hemisphere and cerebellar vermis. IMPRESSION: No intracranial posttraumatic sequelae. POS: [facility]
[2018-04-26 15:41] LABS: #Eosinphils 0.1 thou/uL (0.0-0.7); #Lymphocytes 0.8 thou/uL (1.20-3.40); #Monocytes 0.6 thou/uL (0.11-0.59); #Neutrophils 6.5 thou/uL (1.40-6.50); %Basophils 0.3 % (0.0-1.0); %Eosinophils 0.8 % (0.0-10.0); %Lymphocytes 10.1 % (21.0-51.0); %Monocytes 7.8 % (0.0-10.0); Hemoglobin 9.8 g/dL (12.0-16.0); Mean Corpuscular HGB CONC 33.3 g/dL (32.0-36.0); Mean Corpuscular Hemoglobin 31.8 pg (27.0-31.0); Mean Corpuscular Volume 95.6 fL (78.0-98.0); Mean Platelet Volume 7.2 fL (7.4-10.4); Platelet Count 154 thou/uL (130-400); RBC Distribution Width 11.5 % (11.5-14.5); Red Blood Cell (RBC) Count 3.06 mill/uL (4.20-5.40)
[2018-04-26] MEDS ORDERED: Lidocaine 1% (PF) 30 ML VIAL ONE (16:05)
[2018-04-26 16:06] LABS: CKMB 1.1 ng/mL (0-6.6); Troponin I 0.025 ng/mL (< 0.028)
--- NOTE | 2018-04-26 17:26 | RAD ---
TWO VIEWS OF THE LEFT ANKLE: 04/26/18 COMPARISON: None. HISTORY: Fall with left ankle pain. FINDINGS: Two views of the left ankle shows no evidence of acute fracture or dislocation. No focal soft tissue swelling is seen. No degenerative changes are present. IMPRESSION: Unremarkable exam. POS: [facility]
--- NOTE | 2018-04-26 17:30 | RAD ---
SINGLE VIEW OF THE CHEST: 04/26/18 COMPARISON: None. HISTORY: Fall and hit the back of her head on a bench. Chest pain. FINDINGS: Single view of the chest shows an enlarged cardiomediastinal silhouette with atherosclerotic calcific ations in the aorta. There is no evidence of consolidation, mass, or pleural effusion. Degenerative c hanges are seen in the spine. IMPRESSION: No evidence of acute cardiopulmonary disease. POS: [facility]
--- NOTE | 2018-04-26 17:31 | RAD ---
TWO VIEWS OF THE LEFT KNEE: 04/26/18 COMPARISON: None. HISTORY: Fall with left knee pain. FINDINGS: Two views left knee shows no evidence of acute fracture or dislocation. No knee effusion is seen. Mil d tricompartmental osteophytes are seen consistent with osteoarthritis. Vascular calcifications are s een posterior to the knee. IMPRESSION: Mild left knee osteoarthritis without acute osseous abnormality. POS: [facility]
--- NOTE | 2018-04-26 17:33 | RAD ---
TWO VIEWS OF THE RIGHT KNEE: 04/26/18 COMPARISON: 05/26/14. HISTORY: Fall with right knee pain. FINDINGS: Two views of the right knee shows the patient to be status post right knee arthroplasty without perih ardware lucency or fracture. There is no evidence of acute fracture or dislocation. Vascular calcific ations are seen posterior to the knee. No knee effusion is seen. IMPRESSION: Status post right knee arthroplasty without acute osseous abnormality. POS: [facility]
--- NOTE | 2018-04-26 18:05 | RAD ---
THREE VIEWS LUMBOSACRAL SPINE 04/26/18 COMPARISON: 12/27/15 HISTORY: Fall with back pain. FINDINGS: three views lumbosacral spine shows stable scoliotic curvature of the spine. There is diffuse osteope willy. The intervertebral discs are narrowed throughout the lumbar spine with surrounding small osteoph ytes. The intervertebral bodies demonstrate normal height without acute fracture or subluxation. Postsurgical changes are seen at the lumbosacral junction. IMPRESSION: Stable degenerative changes of the lumbar spine without acute osseous abnormality. POS: [facility]
== END 2018-04-26 18:29 | disposition home or self-care (01) ==
LOC: ERS 14:13
DX: S01.91XA Laceration without foreign body of unspecified part of head, initial encounter (principal); I10 Essential (primary) hypertension; F41.9 Anxiety disorder, unspecified; Z86.73 Personal history of transient ischemic attack (TIA), and cerebral infarction without residual deficits; Z79.82 Long term (current) use of aspirin; Z79.899 Other long term (current) drug therapy; W22.8XXA Striking against or struck by other objects, initial encounter
CPT/HCPCS: 36415; 70450; 71045; 72100; 82553; 84484; 85025; 93005; J2001

== ENCOUNTER 2018-08-27 10:27 | Outpatient (CLI) | payer MEDICARE, BC ==
--- NOTE | 2018-08-27 12:05 | RAD ---
PA AND LATERAL CHEST: HISTORY: An 83-year-old female with a history of cough. COMPARISON: 04/26/2018 FINDINGS: Status post transcatheter aortic valve replacement. Heart size is within normal limits. Lungs are c lear. No pneumothorax, edema, or pleural effusion. IMPRESSION: 1. No acute intrathoracic disease. 2. Atherosclerosis of the aorta with ectasia. 3. No significant change from prior study. POS: [facility]
== END 2018-08-27 10:28 | disposition home or self-care (01) ==
LOC: RAD-FRANK 10:27
PROVIDERS: ATTEND Nurse Practitioner Family
DX: R05 Cough (principal); I70.0 Atherosclerosis of aorta; I77.819 Aortic ectasia, unspecified site
CPT/HCPCS: 71046

== ENCOUNTER 2018-11-04 18:13 | Inpatient (IN) | payer MEDICARE, BC ==
[~2018-11-04 18:13] MED LIST: Iopamidol 370 76% 100 ML VIAL ONE
[2018-11-04 19:17] LABS: #Eosinphils 0.1 thou/uL (0.0-0.7); #Lymphocytes 1.3 thou/uL (1.20-3.40); #Monocytes 0.5 thou/uL (0.11-0.59); #Neutrophils 4.9 thou/uL (1.40-6.50); %Basophils 0.3 % (0.0-1.0); %Eosinophils 1.5 % (0.0-10.0); %Lymphocytes 18.4 % (21.0-51.0); %Monocytes 7.1 % (0.0-10.0); %Neutrophils 72.7 % (42.0-75.0); Hemoglobin 12.2 g/dL (12.0-16.0); Mean Corpuscular HGB CONC 33.5 g/dL (32.0-36.0); Mean Corpuscular Hemoglobin 31.2 pg (27.0-31.0); Mean Platelet Volume 8.3 fL (7.4-10.4); Platelet Count 150 thou/uL (130-400); RBC Distribution Width 11.3 % (11.5-14.5); Red Blood Cell (RBC) Count 3.91 mill/uL (4.20-5.40); White Blood Cell (WBC) Count 6.8 thou/uL (4.8-10.8)
[2018-11-04 19:22] LABS: INR-International Normal Ratio 0.9; PTT 24.5 SEC (22.9-36.1); Prothrombin Time 12.3 SEC (12.0-14.7)
[2018-11-04 19:42] LABS: ALT (SGPT) 13 U/L (8-55); AST (SGOT) 22 U/L (5-34); Albumin 4.3 g/dL (3.4-4.8); Alkaline Phosphatase 132 U/L (40-150); Anion Gap 19 mmol/L (10-20); BUN (Urea Nitrogen) 32 mg/dL (9.8-20.1); Bilirubin, Total 0.3 mg/dL (0.2-1.2); Calc. Creatinine Clearance 0 mL/min (70-130); Calcium 9.6 mg/dL (7.8-10.44); Carbon Dioxide 23 mmol/L (23-31); Chloride 95 mmol/L (98-107); Estimated GFR-MDRD 49; Globulin 2.2 g/dL (2.4-3.5); Glucose 113 mg/dL (83-110); Potassium 4.7 mmol/L (3.5-5.1); Protein, Total 6.5 g/dL (6.0-8.3); Sodium 132 mmol/L (136-145)
--- NOTE | 2018-11-04 19:46 | CT ---
CT BRAIN NONCONTRAST: DATE: 11/04/2018 TIME: 7:14 p.m. HISTORY: An 83-year-old female undergoing acute stroke: Dysphasia. Dr. Chaudhary gave this stroke alert protocol report, by telephone, at 7:20 p.m. on 11/04/2018, to Dr. Rear moody of the emergency department. 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 There are diffuse moderate to severe chronic ischemic white matter changes. N o obstructive hydrocephalus, mass effect, midline shift, extraaxial fluid collections, acute intraaxi al hemorrhage, acute extraaxial hemorrhage, or calvarial fracture. No interval change overall. IMPRESSION: 1. No acute intracranial findings. 2. 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 3. Advanced chronic ischemic white matter changes. CODE ALANNA JN R POS: [facility]
[2018-11-04] MEDS ORDERED: Aspirin 325 MG TAB ONE (20:01)
[2018-11-04 20:03] LABS: CKMB 1.8 ng/mL (0-6.6)
--- NOTE | 2018-11-04 20:04 | CT ---
CT ANGIOGRAM HEAD WITH CONTRAST: CT ANGIOGRAM NECK WITH CONTRAST: DATE: 11/04/2018 TIME: 7:19 p.m. HISTORY: An 83-year-old female undergoing acute stroke symptoms: Dysphasia. This acute stroke alert protocol CTA report was called STAT to Dr. Cardona of the emergency [facility] emergency department at 7:39 p.m. on 11/04/[address] Chaudhary. TECHNIQUE: IV injection of 60 mL of Isovue-370. Arterial bolus chasing technique scan from slightly inferior to the salma to the vertex of the head. Coronal and sagittal 3D MIP reconstructions. FINDINGS: Images of the cervicothoracic junction are degraded by patient breathing motion. Aortic arch: Heavy atherosclerotic calcification without aneurysm or high-grade stenosis. Brachiocephalic: Mild stenosis at the origin due to plaque. No high-grade stenosis. Right subclavian: No high-grade stenosis. Atherosclerotic plaque. Left subclavian: Atherosclerotic plaque. Mid and distal portions obscured by streak artifact from a djacent contrast bolus in the left subclavian vein. No high-grade stenosis at proximal aspect. No compelling evidence of high-grade stenosis of cervical portions of bilateral vertebral arteries. Right common carotid: No high-grade stenosis. Left common carotid: Origin poorly visualized because of breathing motion artifact. Suspected severe stenosis at the origin due to calcified plaque. Right internal carotid: No high-grade stenosis. Left internal carotid: Asymmetrically moderate calcified plaque at the left carotid bulb. There is mild stenosis at the origin of the left internal carotid. No high-grade stenosis at the origin of the left internal carotid or the rest of the left internal carotid identified. Heavily calcified plaque throughout the bilateral carotid siphons makes it difficult to evaluate degr ee of stenosis there. There is no thrombosis or high-grade stenosis involving the M1 segments of the bilateral middle cerebral arteries. The A1 segment of the right anterior cerebral artery is develop mentally absent. The right A2 segment is supplied by the left anterior cerebral artery via a patent anterior communicating artery. Intracranial posterior circulation and anterior circulation demonstra te no acquired high-grade stenosis or acute occlusion. IMPRESSION: 1. Severe chronic stenosis at the origin of the left common carotid artery. 2. Atherosclerosis of multiple arteries. 3. No evidence of acute acquired occlusion of any artery. CODE CR POS: [facility]
[2018-11-04 21:07] LABS: Bilirubin Negative (Negative); Blood, Urine Negative (Negative); Clarity CLEAR (Clear); Glucose, Urine (Dipstick) Negative (Negative); Leukocyte Negative (Negative); Nitrite Negative (Negative); Protein, Urine (Dipstick) Negative (Neg-Trace); Specific Gravity, Urine 1.013 (1.002-1.036); Urobilinogen 0.2 mg/dL (0.2-1.0); pH, Urine 6.5 (5.0-9.0)
[2018-11-04 22:37] LABS: Troponin I 1.033 ng/mL (< 0.028)
[2018-11-04] MEDS ORDERED: Nitroglycerin 0.4 MG TAB (25 Tab Bottle) SL PRN (22:51)
[2018-11-04] MEDS ORDERED: cloNIDine 0.1 MG TAB PO PRN (22:51)
[2018-11-04] MEDS ORDERED: [UNRECOGNIZED DRUG - REMARK] FS SCH (23:00)
[2018-11-04] MEDS ORDERED: Zolpidem Tartrate 5 MG TAB PO PRN (23:02)
[2018-11-04] MEDS ORDERED: Bisacodyl 10 MG SUPP PR PRN (23:02)
[2018-11-04] MEDS ORDERED: Bisacodyl 5 MG TAB PO PRN (23:02)
[2018-11-05 01:59] LABS: Troponin I 1.639 ng/mL (< 0.028)
[2018-11-05 03:56] LABS: #Eosinphils 0.1 thou/uL (0.0-0.7); #Lymphocytes 1.3 thou/uL (1.20-3.40); #Monocytes 0.4 thou/uL (0.11-0.59); %Basophils 0.5 % (0.0-1.0); %Eosinophils 1.8 % (0.0-10.0); %Lymphocytes 22.4 % (21.0-51.0); %Monocytes 7.2 % (0.0-10.0); %Neutrophils 68.1 % (42.0-75.0); Hemoglobin 11.4 g/dL (12.0-16.0); Mean Corpuscular HGB CONC 33.9 g/dL (32.0-36.0); Mean Corpuscular Hemoglobin 31.2 pg (27.0-31.0); Mean Corpuscular Volume 91.9 fL (78.0-98.0); Mean Platelet Volume 7.4 fL (7.4-10.4); Platelet Count 144 thou/uL (130-400); RBC Distribution Width 11.2 % (11.5-14.5); Red Blood Cell (RBC) Count 3.65 mill/uL (4.20-5.40); White Blood Cell (WBC) Count 5.9 thou/uL (4.8-10.8)
[2018-11-05 04:15] LABS: Anion Gap 10 mmol/L (10-20); BUN (Urea Nitrogen) 25 mg/dL (9.8-20.1); Calc. Creatinine Clearance 0 mL/min (70-130); Calcium 9.1 mg/dL (7.8-10.44); Carbon Dioxide 26 mmol/L (23-31); Chloride 98 mmol/L (98-107); Estimated GFR-MDRD 57; Glucose 107 mg/dL (83-110); Potassium 4.2 mmol/L (3.5-5.1); Sodium 130 mmol/L (136-145)
[2018-11-05] MEDS ORDERED: Nebivolol HCl 5 MG TAB PO SCH (09:00)
[2018-11-05] MEDS ORDERED: Lorazepam 2 MG/ML VIAL SLOW IVP PRN (09:01)
[2018-11-05] MEDS ORDERED: Famotidine 20 MG TAB ONE (09:38)
[2018-11-05] MEDS ORDERED: Enoxaparin Sodium 60 MG/0.6 ML SYRINGE ONE (09:38)
[2018-11-05] MEDS: Aspirin 81 mg Enteric Coated Tablet PO SCH (11:02)
[2018-11-05] MEDS: Famotidine 20 MG TAB PO SCH (11:02)
[2018-11-05] MEDS: DULoxetine 30 MG CAP PO SCH ×2 (11:02→20:38)
[2018-11-05] MEDS: Enoxaparin Sodium 60 MG/0.6 ML SYRINGE SC SCH ×2 (11:02→20:38)
[2018-11-05] MEDS: Famotidine/PF 20 mg/2ml Vial SLOW IVP SCH (11:03)
[2018-11-05] MEDS: Loratadine 10 MG TAB PO SCH (11:03)
[2018-11-05] MEDS: Prenatal Vitamin 1 TAB PO SCH (11:03)
[2018-11-05] MEDS: Nebivolol HCl 2.5 MG TAB PO SCH (11:03)
--- NOTE | 2018-11-05 11:36 | MRI ---
MRI BRAIN WITHOUT CONTRAST: Date: 11/05/18 HISTORY: Acute stroke. TIA vs. CVA. COMPARISON: 10/11/17. CORRELATION; CT angiogram head and neck dated 11/04/18. FINDINGS: Appropriate T1 marrow signal intensity of the calvarium. Midline brain parenchymal structures are unr emarkable. Stable Hypointensities on the axial GRE sequence compatible with remote lacunar infarct versus amyloi d angiopathy. No evidence of acute hemorrhage on the axial gradient echo sequence. No parenchymal hem orrhage. No extra-axial hematoma. No midline shift. Basilar cisterns are patent. Age-appropriate atrophy. There are confluent T2 and FLAIR white matter hyperintensities compatible wi th chronic small vessel ischemic change. Central arterial flow-voids are maintained. No restricted diffusion. Cortical cabrera-white matter differentiation is preserved, with the exception of the medial left occipi tolu lobe, where there is evidence of malacic and gliotic change. Mild mucosal disease of the visualized ethmoid air cells. IMPRESSION: 1. Absent restricted diffusion. No acute infarct. 2. Stable atrophy. Stable chronic small vessel ischemic change of white matter. 3. Stable malacic and gliotic change involving the left occipital lobe. Stable chronic small vessel ischemic change of white matter. Stable findings compatible with remote hemorrhage lacunar infarcts v s amyloid angiopathy. POS: [facility]
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
[2018-11-05 15:34] VITALS: BMI 20.5
[2018-11-05] MEDS: Sodium Chloride 0.9% 1,000 ML IV SCH ×2 (16:12→18:31)
[2018-11-05] MEDS: Lorazepam 2 MG/ML VIAL SLOW IVP PRN (18:25)
[2018-11-05 19:20] LABS: Troponin I 6.357 ng/mL (< 0.028)
[2018-11-05] MEDS: Ubidecarenone 50 MG CAP PO SCH (20:37)
[2018-11-05] MEDS: Ezetimibe 10 MG TAB PO SCH (20:38)
[2018-11-05] MEDS: Rosuvastatin 20 MG TAB PO SCH (20:38)
[2018-11-05] MEDS: Amlodipine 5 MG TAB PO SCH (20:39)
[2018-11-05] MEDS: Lisinopril 10 MG TAB PO SCH (20:41)
--- NOTE | 2018-11-05 23:17 | CON ---
DATE OF CONSULTATION: 11/05/2018 IMPRESSION: 1. 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 Plan Dilantin level. 2. Adjust her current dosing depending on the level. HISTORY OF PRESENT ILLNESS: Ms. El is an 83-year-old white female with a past history of an occipital lobe stroke, aortic valve disease status post aortic cardiac valve repair, who is living at home with her daughter's assistance. She has had multiple episodes over the last few years with transient confusion. She was diagnosed with seizures at [facility] sometime in the past. She was in her usual state of health prior to admission when she suddenly started acting inappropriately. She started yelling at her daughter in an appropriate fashion. She was concerned that her grand kids were coming in and did not want them to be there. She then started babbling incoherently. She did not know what to do with her and decided to call an ambulance. She was brought into the emergency room for evaluation. She had a CT and CTA done, there is a questionable high-grade stenosis of the left common carotid artery at the takeoff. She had a followup MRI of the brain, which did not reveal any acute ischemic changes, but evidence of an old left occipital lobe stroke. She is back to her baseline. She does not really recall what happened to her. PAST MEDICAL HISTORY: 1. Hypertension. 2. Aortic valve repair. 3. Stroke. SOCIAL HISTORY: No tobacco or alcohol use. ALLERGIES: 1. CIPROFLOXACIN. 2. CODEINE. 3. HYDROCODONE. FAMILY HISTORY: Noncontributory. REVIEW OF SYSTEMS: Over 10 areas were otherwise negative. PHYSICAL EXAMINATION: GENERAL: She is a petite, elderly lady sitting up in bed, in no distress. HEENT: Pupils are equal and reactive. Conjunctiva clear. Oropharynx clear. NECK: Supple. No lymphadenopathy. EXTREMITIES: No cyanosis, clubbing, or edema. NEUROLOGIC: She was alert and cooperative. She follows commands appropriately. Her speech is fluent and clear. Cranial nerve exam seem to be intact without evidence of a visual field deficit. Motor exam showed equal hot pond operator strength and no fix or drift. Sensation was intact to light touch. She can walk with use of a walker. No abnormal movements were present. Sensation was intact as noted. SUMMARY: This elderly lady who had an acute confusional state, seems to be back to her baseline. I suspect it is probably seizure related. She has no metabolic or infectious factors found. Hopefully this will correct the situation. Job ID: [id number]
[2018-11-05] MEDS ORDERED: Lorazepam 2 MG/ML VIAL IM SCH (23:30)
[2018-11-06] MEDS: Famotidine/PF 20 mg/2ml Vial SLOW IVP SCH ×3 (01:51→20:52)
[2018-11-06] MEDS: Lorazepam 2 MG/ML VIAL SLOW IVP PRN ×2 (03:53→10:30)
--- NOTE | 2018-11-06 06:57 | CON ---
DATE OF CONSULTATION: TYPE OF CONSULTATION: Cardiology. PRIMARY CARE PROVIDER: MARIA DE JESUS Solis PRIMARY STUDENT ADMISSIONS CLERK: Dr. Stewart. REFERRING DOCTOR: Dr. Abbott. REASON FOR CARDIOLOGY CONSULT: Non-STEMI. HISTORY OF PRESENT ILLNESS: Ms. El is an 83-year-old female with a significant history of multiple TIAs due to seizure and severe stress, status post TAVR in August 2015, and hypertension. At this moment, the patient is very confused. The patient's information was obtained from the patient's daughter. Yesterday, the patient started to complain of humming noise around heart and after 1600, she started mumbling instead of talking. The patient was transferred to emergency department and the patient was found to have blood pressure more than 200. Also, the patient was complaining of numbness to the bilateral fingers couple of times a day for couple of weeks. Once the patient's blood pressure was stable, the patient's speech was going back to normal, according to the patient's daughter. The patient's CT scan of the brain shows no acute intracranial finding, small old infarction to left occipital lobe and left cerebrum, and advanced chronic ischemic white matter change. CT scan of the neck showed severe chronic stenosis at the origin of the left common coronary arteries. Brain MRI and the patient's echocardiogram was done today, showing an EF of 55% to 60%, suggestive of diastolic dysfunction, mild mitral valve regurgitation, mild to moderate aortic valve regurgitation, and normal function of bioprosthetic valve to aortic valve, mild tricuspid regurgitation, and mild pulmonic regurgitation. She has been on aspirin since last December 2017 status post fall with a head trauma. She complained of dizziness when she gets up. At this moment, the patient denies any chest pain, discomfort, or tightness in her chest, palpitation, fluttering, shortness of breath, dizziness, lightheadedness, or any other cardiac complaints. She also denies any numbness to the fingers at this moment. PAST MEDICAL HISTORY: 1. Coronary artery disease. 2. Aortic valve replacement with a TAVR in August 2015. 3. Hypertension. 4. TIA. 5. Dementia, first stage of dementia according to the patient's daughter. 6. Anxiety and seizure. PAST SURGICAL HISTORY: Status post TAVR placement in August 2015, cardiac catheterization in 2015, bilateral mastectomy, total hysterectomy, appendectomy, right total knee replacement, right shoulder surgery, and cataract. FAMILY HISTORY: The patient's mother has multiple medical history of TIA and coronary artery disease. The patient's father has a medical history of lung and abdomen cancer and hypertension. The patient's brother has a history of hypertension. SOCIAL HISTORY: The patient is a . She is living with her daughter and her grandson. She denies tobacco, EtOH, or illicit drug abuse. She drinks half and half coffee 4-5 cups a day and 2-3 10-ounces Coke daily. Usually, she does not sleep well at night and waking up every 2-3 hours for urination. She is supposed to wear a CPAP at night for the sleep apnea; however, she refused it. ALLERGIES: SHE IS ALLERGIC TO CIPRO, CODEINE, HYDROCODONE, PENICILLIN, MEPERIDINE, AND PROMETHAZINE. HOME MEDICATIONS: 1. Nitroglycerin 0.4 mg sublingual every 5 minutes as needed. 2. Zyrtec 10 mg twice a day. 3. Duloxetine 30 mg twice a day. 4. Zetia 10 mg once a day. 5. Crestor 20 mg once a day. 6. Dilantin 200 mg once a day at night. 7. Sertraline 50 mg once a day. 8. Multivitamin 1 tablet once a day. 9. Clonidine 0.1 mg every 4 hours as needed. 10. Lisinopril 10 mg once a day. 11. Bystolic 5 mg once a day. 12. Tylenol 500 mg every 6 hours as needed. REVIEW OF SYSTEMS: A 12-point review of system negative unless otherwise mentioned in the HPI. She walks with a walker. She has multiple history of falls and the last fall was in December 2017. She complained of joint pain to all over her body. PHYSICAL EXAMINATION: VITAL SIGNS: Blood pressure 145/65, temperature 97.8, pulse is 67, sinus rhythm, respiratory rate 16, O2 saturation 98% on room air. GENERAL: The patient is alert and oriented to self, but not place, situation, or time. She is easy to get agitate. HEAD: Normocephalic, atraumatic. EYES: Extraocular muscle movement intact. ENT AND MOUTH: Oral and nasal mucosa are moist without lesion. NECK: No JVD. Normal range of motion. RESPIRATORY: Clear to auscultate bilaterally, but very coarse bilaterally. CARDIOVASCULAR: Regular rate and rhythm. Normal S1 and S2. There is no S3 or S4. No significant murmur, heaves, or thrills noted. EXTREMITIES: 2+ pulses at the bilateral upper and lower extremities. No edema. VASCULAR: She has a bruit on the left side. SKIN: Big hematoma to the right hand, but no significant rash or lesion noticed. MUSCULOSKELETAL: The patient is able to move all extremities. The patient tried to get up. The patient denied claudication. ABDOMEN: Soft, nontender. No mass. Bowel sounds are present. PSYCHIATRIC: The patient's mood is, she is easy to get agitate, especially at night. Per family, she sometimes try to hit. NEUROLOGIC: The patient is alert and oriented to self only. Nonfocal. The patient is able to move all extremities. Her face is drooping to the left side; however, that is normal for the patient according to the patient's family. LABORATORY DATA: WBC 5.9, hemoglobin 11.4, hematocrit 33.6, platelet 144. Sodium 130, potassium 4.2, BUN 25, creatinine 0.94. AST of 22, ALT of 13. CK-MB is 1.8. Troponin 0.198, 1.033, 0.639. UA is negative. ASSESSMENT AND PLAN: 1. Osv-IA-afecrscae myocardial infarction. The patient's enzyme is elevated until this morning. We would like to recheck another troponin level tonight. However, at this moment, due to the history of possible transient ischemic attack, we would like to continue to monitor the patient's condition at this moment until the patient's condition is stable. At this moment, the patient's blood pressure is stable and she has not had any seizure activities. The patient's troponin is elevated, possible secondary to hypertension urgency, seizure activity, or transient ischemic attack. 2. Coronary artery disease. Again, we would like to continue to monitor. We would like to continue medical treatment at this moment. Once the patient's condition is stable, we would like to consider to evaluate her cardiovascular system. 3. Hypertension. The patient's blood pressure is stable at this moment. We would like to continue to monitor. 4. Possible transient ischemic attack or seizure activities. The patient's CT brain shows normal and stable at this moment, which is managed by primary care doctor and the neurologist. 5. Status post TAVR placement in August 2015. Echocardiogram today shows a normal bioprosthetic valve function. 6. Dementia. The patient's condition is stable at this moment; however, according to the patient's family, the patient has a severe sundowner. Thank you very much for allowing the Cardiology Service to participate in the care of this patient. We will follow along the patient's care team and make further evaluation as appropriate. Job ID: [id number]
--- NOTE | 2018-11-06 07:11 | CON ---
DATE OF CONSULTATION: 11/05/2018 ADDENDUM: INDICATION FOR CONSULTATION: This is an 83-year-old female with probable CVA, altered mental status, and elevation in the cardiac enzymes. HISTORY OF PRESENT ILLNESS: This 83-year-old female has been followed by Dr. Stewart in the past. 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 She also has a history of hypertension. She apparently started becoming agitated yesterday. She was brought in by the family after having 2 mental status changes. Apparently, she was having some hallucinations, and the CT scan has been performed as well as MRI, and she has also had carotids done, which showed evidence of chronic severe stenosis of the left common carotid artery and also atherosclerosis of multiple arteries, but there was no acute occlusion of any specific artery. She also had an MRI performed today, which showed no acute infarct. She does have atrophy and small-vessel disease and previous infarcts, but nothing acute at this time. We are asked to see her due to the abnormal cardiac enzymes, which would not be unusual in someone who has had a small CVA. I suspect this is just small-vessel disease causing small CVAs, but given her overall age and dementia, she is not a candidate for any acute interventions from a cardiac standpoint. At this time, I was asked to see the patient. She is unable to tell me whether or not she is having any pain. She still remains confused. She has been told in the past that she possibly had a seizure or possibly had a TIA. For her past medical history, social history, family history, review of systems, medications and allergies, please refer to the notes already dictated by nurse practitioner. PHYSICAL EXAMINATION: GENERAL: An elderly female, who is in no acute distress at this time. She is arousable, but then drifts back off to sleep. VITAL SIGNS: Blood pressure 127/57 and heart rate is 67. She is afebrile. Respiratory rate is 16. She does have a regular rhythm. HEENT: Reveals the head to be normocephalic and atraumatic. Carotid pulses are present, but decreased certainly on the left side. CHEST: Clear to auscultation. I did not hear any rales, rhonchi or wheezing. CARDIOVASCULAR: There is a regular rate and rhythm. She has a systolic murmur at the apex. It had been very soft. I did not hear any other significant murmurs, heaves, thrills, bruits or rubs. ABDOMEN: Soft and nontender. Positive bowel sounds are present. EXTREMITIES: No clubbing, cyanosis or edema. NEUROLOGIC: The patient is somewhat lethargic and seems to be confused with some mental status changes. I do not have a baseline on this lady. I am uncertain as to exactly what her baseline actually is. Otherwise, appears to be relatively stable. LABORATORY DATA: Please refer to the notes already dictated and my notes above for the results of the CT scans. Her renal function appears to be normal with creatinine of 0.94. Cardiac enzymes do show elevation of the troponin I. Again, we will need to monitor this. She does not have any acute EKG changes to indicate ongoing ischemia. The EKG did show a right bundle-branch block, but no acute ST-segment elevation was noted. We would continue to treat her conservatively. IMPRESSION: 1. Probable dke-UP-plkwkcx elevation myocardial infarction associated with mental status changes and possible cerebrovascular accident or transient ischemic attack. I will continue to monitor her and treat her appropriately. She is not a candidate for oral anticoagulations or anti-platelet therapy, perhaps an aspirin, but I would not anticoagulate her any further than that. I will continue to monitor her unless she has any acute EKG changes or symptoms. The heart rate is under relatively good control. I will continue the present medications. 2. Hypertension. I will need to continue her medications. 3. History of possible seizure disorder. She will be continued on Dilantin and will be observed closely on the stroke unit. At this time, we will continue to monitor the patient with you, and I would agree with the present management with beta-blockers as well as nitrates and aspirin. Job ID: [id number]
[2018-11-06] MEDS: Enoxaparin Sodium 60 MG/0.6 ML SYRINGE SC SCH ×3 (08:21→20:51)
[2018-11-06] MEDS: Prenatal Vitamin 1 TAB PO SCH (10:33)
[2018-11-06] MEDS: Aspirin 81 mg Enteric Coated Tablet PO SCH (10:33)
[2018-11-06] MEDS: Famotidine 20 MG TAB PO SCH (10:34)
[2018-11-06] MEDS: Loratadine 10 MG TAB PO SCH (10:34)
[2018-11-06] MEDS: DULoxetine 30 MG CAP PO SCH ×4 (10:34→22:22)
[2018-11-06] MEDS: Nebivolol HCl 2.5 MG TAB PO SCH (10:35)
[2018-11-06] MEDS: Sodium Chloride 0.9% 1,000 ML IV SCH ×2 (10:51→20:59)
--- NOTE | 2018-11-06 12:22 | PDOC.CTH ---
Cardiology Progress Note - Subjective The pt seen and examined. She is resting well at this moment. No overnight events, but very confused last night. She is very confused and does not follow commands at this moment. She stops breathing for at least 20-30 sec during sleep. - Objective Vital Signs Temp Pulse Resp BP Pulse Ox 11/06/18 11:58 97.8 F 84 17 96 11/06/18 07:56 99.1 F 98 18 168/81 H 98 11/06/18 04:00 98.8 F 83 20 146/87 H 97 Weight 101 lb 7 oz 11/05/18 11/06/18 11/07/18 06:59 06:59 06:59 Intake Total 240 480 Balance 240 480 - Physical Examination General/Neuro: other: (confused) Lungs: other: (coarses and diminished at bases) Heart: RRR Abdomen: soft Extremities: other: (No edema) - Telemetry Telemetry Rhythm: SR 80-90s - Labs Result Diagrams: 11/05/18 03:46 11/05/18 03:46 Troponin/CKMB CK-MB (CK-2) 1.8 ng/mL (0-6.6) 11/04/18 19:12 Troponin I 6.357 ng/mL (< 0.028) H* 11/05/18 18:38 - Assessment/Plan 1. NSTEMI - Elevated up to 6.357; No further cardiac work up at this moment until her condition is stable; Cont. to monitor on tele 2. CAD with s/p [facility] in 2014 with 60-70% stenosis in LAD and 30% in RCA - 3. HTN - stable; 4. TAVR in 08/2015 - 5. TIA/Seizure - managed by neurologist 6. Demintia - became worse at last night. 7. Anxiety - MAR reviewed Pt. seen and eval. by me. I agree with the A/P by the SEAM PRESS OPERATOR. We have discussed the pt.,plan. She did have some resp. depression this AM and was transferred to [facility]. She is now a DNR. Review of Systems - Review of Systems Constitutional: reports: see HPI EENTM: reports: see HPI Respiratory: reports: see HPI
--- NOTE | 2018-11-06 15:24 | PDOC.PN ---
- Subjective Encounter Start Date: 11/06/18 Encounter Start Time: 15:21 Ms. El was seen today in follow-up of altered mental status. She had an episode of suddenly becoming less responsive, and her heart rate fell. She is now feeling very sleepy, but is awake and she denies chest pain or difficulty breathing. Her blood pressure was 154/70. - Objective Resuscitation Status - Order Detail: 11/04/18 23:02 Resuscitation Status Routine Resuscitation Status: FULL: Full Resuscitation MAR Reviewed: Yes Vital Signs & Weight: Vital Signs (12 hours) Temp Pulse Resp BP BP Pulse Ox 11/06/18 14:14 82 104/50 L 11/06/18 13:10 208/103 H 11/06/18 11:58 97.8 F 84 17 216/78 H 96 11/06/18 07:56 99.1 F 98 18 168/81 H 98 11/06/18 04:00 98.8 F 83 20 146/87 H 97 Weight Weight 101 lb 7 oz I&O: 11/05/18 11/06/18 11/07/18 06:59 06:59 06:59 Intake Total 240 960 Balance 240 960 Result Diagrams: 11/05/18 03:46 11/05/18 03:46 Additional Labs: Accuchecks 11/06/18 15:08 POC Glucose 182 H Phys Exam - Physical Examination HEENT: PERRLA Respiratory: no wheezing, no rales, no rhonchi, clear to auscultation bilateral Cardiovascular: RRR, no significant murmur, no rub Gastrointestinal: soft, non-tender, no distention, positive bowel sounds Musculoskeletal: no edema, pulses present Neurological: non-focal Dx/Plan (1) NSTEMI (non-ST elevated myocardial infarction) Code(s): I21.4 - NON-ST ELEVATION (NSTEMI) MYOCARDIAL INFARCTION Status: Acute (2) TIA (transient ischemic attack) Code(s): G45.9 - TRANSIENT CEREBRAL ISCHEMIC ATTACK, UNSPECIFIED Status: Acute (3) Seizure Code(s): R56.9 - UNSPECIFIED CONVULSIONS Status: Chronic (4) CAD (coronary artery disease) Code(s): I25.10 - ATHSCL HEART DISEASE OF [place] CORONARY ARTERY W/O ANG PCTRS Status: Chronic (5) Hyperlipidemia Code(s): E78.5 - HYPERLIPIDEMIA, UNSPECIFIED Status: Chronic (6) Hypertension Code(s): I10 - ESSENTIAL (PRIMARY) HYPERTENSION Status: Chronic - Plan * Sudden Decreased consciousness- this may have been a reaction to Clonidine- her blood pressure as well as heart rate dropped, and she is feeling sleepy. All of which are adverse affects of Clonidine. Her daughter also says she has had bad reactions to Clonidine in the past. Will move her to the [facility], and check a serum troponin. Will discontinue Clonidine * NSTEMI-Cardiology input noted- she will be treated medically . * Seizure- Neurology input noted. She did not have evidence of a stroke. There episodes are thought to be a seizure- and her dose of Dilantin has been increased * HTN- blood pressure is very labile- will avoid clonidine, and likely allow her pressure to run a bit higher.
[2018-11-06] MEDS: Lisinopril 10 MG TAB PO SCH (18:49)
[2018-11-06] MEDS: Amlodipine 5 MG TAB PO SCH ×3 (20:51→22:19)
[2018-11-06] MEDS: Ezetimibe 10 MG TAB PO SCH ×3 (20:52→22:20)
[2018-11-06] MEDS: Rosuvastatin 20 MG TAB PO SCH ×3 (20:52→22:21)
[2018-11-06] MEDS: Ubidecarenone 50 MG CAP PO SCH ×3 (20:52→22:21)
--- NOTE | 2018-11-06 23:31 | CON ---
DATE OF CONSULTATION: 11/06/2018 SERVICE: Pulmonary Medicine. REASON FOR CONSULT: [facility] patient. HISTORY OF PRESENT ILLNESS: The patient is an 83-year-old white female with past medical history significant for dementia. She came to the hospital with increasing altered mentation. She was discovered to have a aan-ZT-eddxrigro LA. She also has a remote history of stroke. Either way, in the emergency department, she was having some nonsensical speech. There is no report of recent fevers, chills, cough, sputum production, nausea, vomiting, or diarrhea. She was placed on the floor, where she was being watched for a couple of days. She started having increasing confusion and increasing lethargy. She was noted to have prolonged periods of apnea. Ultimately, she had some agitation and slurred speech once again. There was a concern for stroke. The patient was subsequently moved into the [facility] for close observation. She was initiated on noninvasive therapy. As soon as her apneas were corrected , she went into a very deep sleep and looked very peaceful. She cannot currently add any of the historical elements that brought her to the hospital. PAST MEDICAL HISTORY: 1. History of CVA. 2. Coronary artery disease. 3. History of transaortic valve replacement. 4. Hypertension. 5. Anxiety disorder. 6. Dementia. PAST SURGICAL HISTORY: 1. Excision of breast tumor. 2. Hysterectomy. 3. Appendectomy. 4. Right knee total knee replacement. 5. Right shoulder surgery. ALLERGIES: DEMEROL, CODEINE, CIPRO, HYDROCODONE, MEPERIDINE, PROMETHAZINE. MEDICATIONS: List of her inpatient medications was reviewed and updated. SOCIAL HISTORY: Negative for alcohol, tobacco, or illicit drug use. Her daughter is suggesting that she is a DNI/DNR and that it would not be appropriate to move forward with any type of advanced interventions if they were required. She has no exposure to chemicals, dust, asbestos, or tuberculosis. FAMILY HISTORY: Noncontributory. REVIEW OF SYSTEMS: This cannot be obtained as the patient is currently encephalopathic. PHYSICAL EXAMINATION: VITAL SIGNS: Afebrile, pulse 84, blood pressure 216/78, respirations 17, and saturation 96% on room air. GENERAL: The patient is somnolent. HEENT: Normocephalic and atraumatic. Sclerae white. Conjunctivae pink. Oral mucosa is moist without lesions. LUNGS: Decent air entry. There is no prolonged expiratory phase. Rhonchi present. There is inspiratory and expiratory wheezing, but they are fairly coarse in nature and do not have the polyphonic characteristics, consistent with obstructive lung disease. There is no crackles appreciated. HEART: Normal rate. Regular. ABDOMEN: Soft, nontender, and nondistended. Bowel sounds are positive. MUSCULOSKELETAL: No cyanosis or clubbing. There is no pitting in the bilateral lower extremities. NEUROLOGIC: Grossly nonfocal. LABORATORY DATA: Sodium 130, potassium 4.2. Basic metabolic profile is otherwise unremarkable. Creatinine 0.94, troponin 0.63 and gently up-trending. INR 0.9. CBC is essentially stable/unremarkable. Urinalysis is negative, phenytoin level is 6.5. IMAGING DATA: 1. Echocardiogram demonstrates normal ejection fraction with diastolic dysfunction. Mild to moderate aortic regurgitation is noted. Normal RV size and function is present. 2. MRI of the brain demonstrates no acute infarct. There is an old infarct that is identified. ASSESSMENT: 1. Hypertensive emergency. 2. Ulp-LB-fzjaahmjy myocardial infarction. 3. Obstructive sleep apnea, likely severe. 4. Delirium superimposed on top of dementia. 5. Metabolic encephalopathy associated with Ativan and precipitous drop in blood pressure (clonidine). DISCUSSION AND PLAN: We will gently hydrate the patient over the next 24 hours and avoid centrally acting medications for sedation. Supportive measures will be continued. I will repeat laboratories tomorrow morning. My suspicion is that this episode was a combination of two things. I believe it is because she had a precipitous drop in blood pressure temporarily associated with clonidine, and has untreated obstructive sleep apnea, which is quite severe. Hopefully, her mentation will come around over the next 24 to 48 hours. I will change her code status over to a DNR based on a conversation I had with the patient's power of attorney general today. 70 minutes have been devoted to this patient in various activities. I personally reviewed all imaging studies and laboratory data noted within this document. For fifty percent of this time, I was interacting with the patient at the bedside or coordinating care with the care team. For the remainder of the time I was immediately available to the patient in the hospital unit. Job ID: [id number] [facility]
[2018-11-07] MEDS: Aspirin 81 mg Enteric Coated Tablet PO SCH (09:53)
[2018-11-07] MEDS: DULoxetine 30 MG CAP PO SCH ×2 (09:54→20:23)
[2018-11-07] MEDS: Loratadine 10 MG TAB PO SCH (09:55)
[2018-11-07] MEDS: Prenatal Vitamin 1 TAB PO SCH (09:55)
[2018-11-07] MEDS: Nebivolol HCl 2.5 MG TAB PO SCH (09:55)
[2018-11-07] MEDS: Enoxaparin Sodium 60 MG/0.6 ML SYRINGE SC SCH ×2 (09:55→20:23)
[2018-11-07] MEDS: Famotidine 20 MG TAB PO SCH (09:55)
[2018-11-07] MEDS: Famotidine/PF 20 mg/2ml Vial SLOW IVP SCH ×2 (09:56→20:25)
--- NOTE | 2018-11-07 12:26 | PDOC.CTH ---
Cardiology Progress Note - Subjective The pt seen and examined. No overnight events. No cardiac complaints. - Objective Vital Signs Temp Pulse Pulse Pulse Resp BP BP 11/07/18 10:55 97.4 F L 72 18 11/07/18 10:44 72 69 147/72 H 145/78 H 11/07/18 08:12 11/07/18 07:26 72 18 11/07/18 04:00 98.0 F 76 18 BP Pulse Ox Pulse Ox Pulse Ox 11/07/18 10:55 150/56 H 100 11/07/18 10:44 100 100 11/07/18 08:12 100 11/07/18 07:26 167/80 H 100 11/07/18 04:00 146/81 H 100 Weight 101 lb 7 oz 11/06/18 11/07/18 11/08/18 06:59 06:59 06:59 Intake Total 240 1860 Balance 240 1860 - Physical Examination General/Neuro: other: (confused) Lungs: CTA Heart: RRR Abdomen: soft Extremities: other: (No edema) - Telemetry Telemetry Rhythm: SR 70s - Labs Result Diagrams: 11/05/18 03:46 11/05/18 03:46 Troponin/CKMB CK-MB (CK-2) 1.8 ng/mL (0-6.6) 11/04/18 19:12 Troponin I 6.357 ng/mL (< 0.028) H* 11/05/18 18:38 - Assessment/Plan 1. NSTEMI - Elevated up to 6.357; No further cardiac work up at this moment until her condition is stable; Cont. to monitor on tele 2. CAD with s/p [facility] in 2014 with 60-70% stenosis in LAD and 30% in RCA - 3. HTN - stable; 4. TAVR in 08/2015 - 5. TIA/Seizure - managed by neurologist 6. Demintia - became worse at last night. 7. Anxiety - MAR reviewed * DNR. Pt. seen and eval. by me. I agree with the A/P by the BONDERITE OPERATOR. This afternoon she is sitting up in the chair. Much better breathing than yesterday, still confused.Chest: dcreased breath sounds , few basilar wheezes. RRR.No edema. continue medical management. Review of Systems - Review of Systems Constitutional: reports: no symptoms reported EENTM: reports: no symptoms reported Respiratory: reports: no symptoms reported Cardiac (ROS): reports: no symptoms reported ABD/GI: reports: no symptoms reported : reports: no symptoms reported Musculoskeletal: reports: no symptoms reported Skin: reports: no symptoms reported
[2018-11-07] MEDS: Sodium Chloride 0.9% 1,000 ML IV SCH (13:32)
--- NOTE | 2018-11-07 15:14 | PDOC.PN ---
- Subjective Encounter Start Date: 11/07/18 Encounter Start Time: 13:30 Ms. El was seen today in follow-up of NSTEMI and seizures. she is doing well today she denies having any chest pain or difficulty breathing. She has not had any altered mental status episodes. - Objective Resuscitation Status - Order Detail: 11/06/18 17:08 Resuscitation Status Routine Resuscitation Status: DNAR: NO Resuscitation Discussed with: Daughter member at bedside. MAR Reviewed: Yes Vital Signs & Weight: Vital Signs (12 hours) Temp Pulse Pulse Pulse Resp BP BP 11/07/18 10:55 97.4 F L 72 18 11/07/18 10:44 72 69 147/72 H 145/78 H 11/07/18 08:12 11/07/18 07:26 72 18 11/07/18 04:00 98.0 F 76 18 BP Pulse Ox Pulse Ox Pulse Ox 11/07/18 10:55 150/56 H 100 11/07/18 10:44 100 100 11/07/18 08:12 100 11/07/18 07:26 167/80 H 100 11/07/18 04:00 146/81 H 100 Weight Weight 101 lb 7 oz I&O: 11/06/18 11/07/18 11/08/18 06:59 06:59 06:59 Intake Total 240 1860 Balance 240 1860 Result Diagrams: 11/05/18 03:46 11/05/18 03:46 Additional Labs: Accuchecks 11/06/18 15:08 POC Glucose 182 H Phys Exam - Physical Examination HEENT: PERRLA Respiratory: no wheezing, no rales, no rhonchi, clear to auscultation bilateral Cardiovascular: RRR, no significant murmur, no rub Gastrointestinal: soft, non-tender, no distention, positive bowel sounds Musculoskeletal: no edema, pulses present Dx/Plan (1) NSTEMI (non-ST elevated myocardial infarction) Code(s): I21.4 - NON-ST ELEVATION (NSTEMI) MYOCARDIAL INFARCTION Status: Acute (2) TIA (transient ischemic attack) Code(s): G45.9 - TRANSIENT CEREBRAL ISCHEMIC ATTACK, UNSPECIFIED Status: Acute (3) Seizure Code(s): R56.9 - UNSPECIFIED CONVULSIONS Status: Chronic (4) CAD (coronary artery disease) Code(s): I25.10 - ATHSCL HEART DISEASE OF [place] CORONARY ARTERY W/O ANG PCTRS Status: Chronic (5) Hyperlipidemia Code(s): E78.5 - HYPERLIPIDEMIA, UNSPECIFIED Status: Chronic (6) Hypertension Code(s): I10 - ESSENTIAL (PRIMARY) HYPERTENSION Status: Chronic - Plan * NSTEMI- continue with medical management. * Seizures- stable on the increased dose of Dilantin * Apneic spells- she likely has undiagnosed sleep apnea- continue CPAP/BiPAP at night * HTN- blood pressure is much improved * She is stable for transition out of the [facility]
--- NOTE | 2018-11-07 15:26 | PQF ---
DATE: 11-07-18 ATTN: DR. AYLIN QUINTANILLA Please exercise your independent, professional judgment in responding to the clarification form. Clinical indicators are provided on the bottom of this form for your review Please check appropriate box(s): [ X ] Encephalopathy: Type: [ X] Acute [ ] Subacute [ ] Chronic Etiology: [ ] Hypertensive [ ] Metabolic [ ] Toxic [ ] Hypoxic [X ] in the setting of underlying dementia [ ] Other (please specify) [ ] Transient Alteration of Awareness [ X ] Other diagnosis _Due to medication- Clonidine [ ] Unable to determine In addition, please specify: Present on Admission (POA): [ ] Yes [ X] No [ ] Unable to determine For continuity of documentation, please document condition throughout progress notes and discharge summary. Thank You. CLINICAL INDICATORS - SIGNS / SYMPTOMS / LABS: ER: AMS, NSTEMI, SLURRED SPEECH H&P: AMS CONSULT NOTE DR. COFFEY 11-06-18: LADY WHO HAD AN ACUTE CONFUSIONAL STATE, SEEMS TO BE BACK TO HER BASELINE. CONSULT NOTE DR. RAGSDALE 11-06-18: REVIEW OF SYSTEMS: THIS CANNOT BE OBTAINED THE PATIENT IS CURRENTLY ENCEPHALOPATHIC. DELIRIUM SUPERIMPOSED ON TOP OF DEMENTIA. RISK FACTORS: CONSULT NOTE DR. RAGSDALE 11-06-18: HTN EMERGENCY, NSTEMI, JAMES LIKELY SEVERE TREATMENTS: MAR: NORVASC, IVF, BYSTOLIC, CLONIDINE D/C 11-04-[address] RAGSDALE 11-06-18: GENTLY HYDRATE THE PATIENT OVER THE NEXT 24HRS AND AVOID CENTRALLY ACTING MEDICATIONS FOR SEDATION (This form is maintained as a part of the permanent medical record) 2014 [employer]. All Rights Reserved KIERRA [email or web address] Office: [phone] [facility] HOSPITALRosalva
--- NOTE | 2018-11-07 16:32 | PRG ---
DATE OF SERVICE: 11/07/2018 SERVICE: Pulmonary Medicine. INTERVAL HISTORY: The patient is doing great from respiratory standpoint. Denies any current chest pain, fevers, or chills. Otherwise, there has been no interval change to her condition. She is breathing comfortably. She is off BiPAP. She is awake and alert. She is in absolutely no distress. Nursing reports no overnight events. PHYSICAL EXAMINATION: VITAL SIGNS: Afebrile. Pulse 62, blood pressure 179/88, respirations 18, and saturation 100% on room air. GENERAL: The patient is awake and alert, in no apparent distress. LUNGS: Decent air entry without prolonged expiratory phase, wheezing, rhonchi, or crackles present. HEART: Normal rate regular. ABDOMEN: Soft, nontender, and nondistended. Bowel sounds are positive. MUSCULOSKELETAL: No cyanosis or clubbing. There is no pitting in the bilateral lower extremities. NEUROLOGIC: Grossly nonfocal. ASSESSMENT: 1. Hypertensive emergency. 2. [place]-NB[place] myocardial infarction. 3. Obstructive sleep apnea, likely severe still. 4. Delirium, superimposed on dementia. 5. Metabolic encephalopathy associated with Ativan use. DISCUSSION AND PLAN: The patient is doing fine from respiratory standpoint. At this point, she is stable for transition back out of the ICU to the telemetry unit. When she leaves the IMCU, she will have no further requirements for Pulmonary or Critical Care opinion and I will sign off. I talked to her briefly about whether or not she would like to pursue an outpatient polysomnogram to get her likely severe sleep apnea under control and she has declined. She does understand that this puts her at increased risk of stroke, progressing dementia, heart disease, heart failure, heart , and kidney problems through time. That being said, she has made a previous attempt at this and has absolutely no interest in making that attempt again. Job ID: [id number]
[2018-11-07] MEDS: Acetaminophen 325 MG TAB PO PRN (20:21)
[2018-11-07] MEDS: Amlodipine 5 MG TAB PO SCH (20:22)
[2018-11-07] MEDS: Ubidecarenone 50 MG CAP PO SCH (20:22)
[2018-11-07] MEDS: Lisinopril 10 MG TAB PO SCH (20:23)
[2018-11-07] MEDS: Ezetimibe 10 MG TAB PO SCH (20:23)
[2018-11-07] MEDS: Rosuvastatin 20 MG TAB PO SCH (20:23)
[2018-11-07] MEDS: hydrALAZINE 20 MG/ML VIAL SLOW IVP PRN ×2 (23:46)
[2018-11-08 05:20] LABS: Hemoglobin 11.3 g/dL (12.0-16.0); Platelet Count 180 thou/uL (130-400)
[2018-11-08] MEDS: Sodium Chloride 0.9% 1,000 ML IV SCH (05:36)
--- NOTE | 2018-11-08 08:30 | PDOC.CTH ---
Cardiology Progress Note - Subjective The pt seen and examined. No overnight events. No cardiac complaints. - Objective Vital Signs Temp Pulse Resp BP BP Pulse Ox 11/08/18 07:28 99.0 F 80 18 151/58 H 100 11/08/18 04:00 98.0 F 79 18 146/61 H 100 11/08/18 00:00 97.8 F 79 20 133/50 L 99 11/07/18 23:46 169/63 H Weight 101 lb 7 oz 11/07/18 11/08/18 11/09/18 06:59 06:59 06:59 Intake Total 1860 1240 Output Total 450 Balance 1860 790 - Physical Examination Lungs: CTA Heart: RRR Abdomen: soft Extremities: other: (No edema) - Telemetry Telemetry Rhythm: SR - Labs Result Diagrams: 11/08/18 05:06 11/08/18 05:06 Troponin/CKMB CK-MB (CK-2) 1.8 ng/mL (0-6.6) 11/04/18 19:12 Troponin I 6.357 ng/mL (< 0.028) H* 11/05/18 18:38 - Assessment/Plan 1. NSTEMI - Elevated up to 6.357; No further cardiac work up at this moment and cont. medical tx only. Cont. to monitor on tele 2. CAD with s/p C in 2014 with 60-70% stenosis in LAD and 30% in RCA - 3. HTN - stable; 4. TAVR in 08/2015 - stable 5. TIA/Seizure - managed by neurologist 6. Demintia - became worse at last night. 7. Anxiety - stable with Seroquel at HS. MAR reviewed * DNR. * Dr Stewart's pt. Pt. seen and eval. by me. I agree with the A/P by the ASSEMBLER WIRE MESH GATE. S/P bronchitis/ pneumonia.The overall status has improved. She is still very confused.Chest : few basilar rales/wheeze.RRR. s/p NSTEMI: likely demand ischemia. Continue to monitor. Conservative cardiac approach. Review of Systems - Review of Systems Constitutional: reports: no symptoms reported EENTM: reports: no symptoms reported Respiratory: reports: no symptoms reported Cardiac (ROS): reports: no symptoms reported ABD/GI: reports: no symptoms reported : reports: no symptoms reported Musculoskeletal: reports: no symptoms reported Skin: reports: no symptoms reported
--- NOTE | 2018-11-08 08:50 | PDOC.PN ---
- Subjective Encounter Start Date: 11/08/18 Encounter Start Time: 11:05 Ms. El was seen today in follow-up of NSTEMI and seizures. She is clinically much improved. She has rested well with the addition of Seroquel. - Objective Resuscitation Status - Order Detail: 11/06/18 17:08 Resuscitation Status Routine Resuscitation Status: DNAR: NO Resuscitation Discussed with: Daughter member at bedside. MAR Reviewed: Yes Vital Signs & Weight: Vital Signs (12 hours) Temp Pulse Resp BP BP Pulse Ox 11/08/18 07:28 99.0 F 80 18 151/58 H 100 11/08/18 04:00 98.0 F 79 18 146/61 H 100 11/08/18 00:00 97.8 F 79 20 133/50 L 99 11/07/18 23:46 169/63 H Weight Weight 101 lb 7 oz I&O: 11/07/18 11/08/18 11/09/18 06:59 06:59 06:59 Intake Total 1860 1240 Output Total 450 Balance 1860 790 Result Diagrams: 11/08/18 05:06 11/08/18 05:06 Phys Exam - Physical Examination HEENT: PERRLA Respiratory: no wheezing, no rales, no rhonchi, clear to auscultation bilateral Cardiovascular: RRR, no significant murmur, no rub Gastrointestinal: soft, non-tender, no distention, positive bowel sounds Musculoskeletal: pulses present, edema present 1+ edema of the lower extremities Neurological: non-focal, normal sensation, moves all 4 limbs Dx/Plan (1) NSTEMI (non-ST elevated myocardial infarction) Code(s): I21.4 - NON-ST ELEVATION (NSTEMI) MYOCARDIAL INFARCTION Status: Acute (2) Seizure Code(s): R56.9 - UNSPECIFIED CONVULSIONS Status: Chronic (3) CAD (coronary artery disease) Code(s): I25.10 - ATHSCL HEART DISEASE OF [place] CORONARY ARTERY W/O ANG PCTRS Status: Chronic (4) Hypertension Code(s): I10 - ESSENTIAL (PRIMARY) HYPERTENSION Status: Chronic - Plan * NSTEMI- will continue with medical management * Seizure disorder- the Dilantin dose has been increased to 300mg * Anxiety- she seems to have responded well to Seroquel- consider continuing after discharge * Severe JAMES- She has refused to consider evaluation for sleep apnea, as well as refuses to use CPAP or BiPAP * She is ready for transition out of the hospital. Her daughter has requested a Rehab evaluation.
[2018-11-08] MEDS: Enoxaparin Sodium 60 MG/0.6 ML SYRINGE SC SCH ×2 (09:17→19:44)
[2018-11-08] MEDS: DULoxetine 30 MG CAP PO SCH ×2 (09:18→19:45)
[2018-11-08] MEDS: Loratadine 10 MG TAB PO SCH (09:19)
[2018-11-08] MEDS: Nebivolol HCl 2.5 MG TAB PO SCH (09:19)
[2018-11-08] MEDS: Prenatal Vitamin 1 TAB PO SCH (09:19)
[2018-11-08] MEDS: Aspirin 81 mg Enteric Coated Tablet PO SCH (09:19)
[2018-11-08] MEDS: Famotidine 20 MG TAB PO SCH (09:19)
[2018-11-08] MEDS: Acetaminophen 325 MG TAB PO PRN (11:30)
--- NOTE | 2018-11-08 14:21 | PRG ---
DATE OF SERVICE: 11/08/2018 SERVICE: Pulmonary Medicine. INTERVAL HISTORY: The patient is doing fine from respiratory standpoint. Breathing comfortably. There has been no interval change to her condition. She is able to walk the hallways with Physical Therapy today. She seemed to tolerate the Seroquel quite well, and the family has commented on multiple occasions about how well mannered she is today. PHYSICAL EXAMINATION: VITAL SIGNS: Afebrile, pulse 74, blood pressure 127/58, respirations 17, saturation 97% on room air. GENERAL: The patient is awake and alert, in no apparent distress. LUNGS: Decent air entry. There is no prolonged expiratory phase or wheezing. HEART: Normal rate, regular. ABDOMEN: Soft, nontender, and nondistended. Bowel sounds are positive. MUSCULOSKELETAL: No cyanosis or clubbing. No pitting in the bilateral lower extremities. NEUROLOGIC: Grossly nonfocal. LABORATORY DATA: Hemoglobin 11.3, platelets 180,000. Creatinine 1.1. ASSESSMENT: 1. Hypertensive emergency, resolved. 2. Suw-[id number] myocardial infarction. 3. Obstructive sleep apnea, severe. 4. Delirium, superimposed on dementia. 5. Metabolic encephalopathy, resolved. DISCUSSION AND PLAN: I will schedule a small dose of Seroquel. At this point, from my perspective, the patient has returned to her usual state of health and can be considered for transition out of the ICU or even discharge from the hospital. She has no further requirements for inpatient Pulmonary/Critical care opinion, and I will sign off. Please call with additional questions or concerns through time. Job ID: [id number]
[2018-11-08] MEDS: Amlodipine 5 MG TAB PO SCH (19:39)
[2018-11-08] MEDS: Lisinopril 10 MG TAB PO SCH (19:39)
[2018-11-08] MEDS: Rosuvastatin 20 MG TAB PO SCH (19:44)
[2018-11-08] MEDS: Ubidecarenone 50 MG CAP PO SCH (19:44)
[2018-11-08] MEDS: Ezetimibe 10 MG TAB PO SCH (19:44)
[2018-11-08] MEDS ORDERED: Lorazepam 2 MG/ML VIAL SLOW IVP SCH (20:30)
--- NOTE | 2018-11-08 21:04 | EKG ---
Test Reason : Blood Pressure : / mmHG Vent. Rate : 068 BPM Atrial Rate : 068 BPM P-R Int : 186 ms QRS Dur : 144 ms QT Int : 468 ms P-R-T Axes : 052 -28 -35 degrees QTc Int : 497 ms Normal sinus rhythm Right bundle branch block Minimal voltage criteria for LVH, may be normal variant Abnormal ECG When compared with ECG of 04-NOV-2018 19:31, (Unconfirmed) T wave inversion now evident in Inferior leads Nonspecific T wave abnormality now evident in Lateral leads Confirmed by Radha LEMUS ([id number]) on 11/08/2018 9:04:26 PM Referred By: SOCORRO Confirmed By:Radha LEMUS
[2018-11-08] MEDS: hydrALAZINE 20 MG/ML VIAL SLOW IVP PRN (22:37)
[2018-11-09] MEDS: hydrALAZINE 20 MG/ML VIAL SLOW IVP PRN (06:21)
[2018-11-09] MEDS: Enoxaparin Sodium 60 MG/0.6 ML SYRINGE SC SCH ×2 (08:55→20:25)
[2018-11-09] MEDS: Nebivolol HCl 2.5 MG TAB PO SCH (08:58)
[2018-11-09] MEDS: Aspirin 81 mg Enteric Coated Tablet PO SCH (08:59)
[2018-11-09] MEDS: Famotidine 20 MG TAB PO SCH (08:59)
[2018-11-09] MEDS: DULoxetine 30 MG CAP PO SCH ×2 (08:59→20:13)
[2018-11-09] MEDS: Prenatal Vitamin 1 TAB PO SCH (08:59)
[2018-11-09] MEDS: Loratadine 10 MG TAB PO SCH (09:00)
[2018-11-09] MEDS ORDERED: Amlodipine 5 MG TAB PO SCH ×2 (09:32→09:45)
--- NOTE | 2018-11-09 11:14 | EKG ---
Test Reason : Blood Pressure : / mmHG Vent. Rate : 083 BPM Atrial Rate : 083 BPM P-R Int : 166 ms QRS Dur : 130 ms QT Int : 426 ms P-R-T Axes : 003 -34 028 degrees QTc Int : 500 ms Normal sinus rhythm Left axis deviation Right bundle branch block Minimal voltage criteria for LVH, may be normal variant Abnormal ECG Confirmed by DARSHAN KRUGER ([id number]), clinical editor MARI KANG ([id number]) on 11/09/2018 11:14:06 AM Referred By: Confirmed By:DARSHAN KRUGER
--- NOTE | 2018-11-09 15:01 | PDOC.PN ---
- Subjective Encounter Start Date: 11/09/18 Encounter Start Time: 14:59 Subjective: feels better.able to answer Qs appropriately & understand that she is in -: hospital.feels weak but denies any pain or discomfort - Objective Resuscitation Status - Order Detail: 11/06/18 17:08 Resuscitation Status Routine Resuscitation Status: DNAR: NO Resuscitation Discussed with: Daughter member at bedside. MAR Reviewed: Yes Vital Signs & Weight: Vital Signs (12 hours) Temp Pulse Pulse Resp BP BP Pulse Ox 11/09/18 11:09 97.5 F L 78 20 149/48 H 94 L 11/09/18 11:05 81 156/60 H 11/09/18 10:54 79 11/09/18 08:00 98 11/09/18 07:39 79 18 138/51 L 95 11/09/18 06:30 184/71 H 11/09/18 06:21 84 11/09/18 06:10 200/74 H 11/09/18 06:00 183/69 H 11/09/18 04:00 98.4 F 84 16 124/45 L 98 Pulse Ox 11/09/18 11:09 11/09/18 11:05 99 11/09/18 10:54 11/09/18 08:00 11/09/18 07:39 11/09/18 06:30 11/09/18 06:21 11/09/18 06:10 11/09/18 06:00 11/09/18 04:00 Weight Weight 101 lb 7 oz I&O: 11/08/18 11/09/18 11/10/18 06:59 06:59 06:59 Intake Total 1240 Output Total 450 Balance 790 Result Diagrams: 11/08/18 05:06 11/08/18 05:06 Phys Exam - Physical Examination Constitutional: NAD follows simple commands.awake and alert,some confusion HEENT: PERRLA, moist MMs, sclera anicteric, oral pharynx no lesions Neck: no nodes, no JVD, supple, full ROM Respiratory: no wheezing, no rales, no rhonchi, clear to auscultation bilateral Cardiovascular: RRR, no significant murmur Gastrointestinal: soft, non-tender, no distention, positive bowel sounds Musculoskeletal: no edema, pulses present Neurological: non-focal, normal sensation, moves all 4 limbs Psychiatric: normal affect Skin: no rash Dx/Plan (1) NSTEMI (non-ST elevated myocardial infarction) Code(s): I21.4 - NON-ST ELEVATION (NSTEMI) MYOCARDIAL INFARCTION Status: Acute (2) Seizure Code(s): R56.9 - UNSPECIFIED CONVULSIONS Status: Chronic Comment: stable on Dilantin (3) Metabolic encephalopathy Code(s): G93.41 - METABOLIC ENCEPHALOPATHY Status: Acute Comment: improving.started on seroquel (4) Hypertensive urgency Code(s): I16.0 - HYPERTENSIVE URGENCY Status: Chronic Comment: impreoved (5) JAMES (obstructive sleep apnea) Code(s): G47.33 - OBSTRUCTIVE SLEEP APNEA (ADULT) (PEDIATRIC) Status: Chronic Comment: refused Sleep study or CPAP (6) CAD (coronary artery disease) Code(s): I25.10 - ATHSCL HEART DISEASE OF [place] CORONARY ARTERY W/O ANG PCTRS Status: Chronic Comment: medical management per cardiology.on ASA,statin.BB, СВЕТЛАНА-I (7) Hyperlipidemia Code(s): E78.5 - HYPERLIPIDEMIA, UNSPECIFIED Status: Chronic (8) Hypertension Code(s): I10 - ESSENTIAL (PRIMARY) HYPERTENSION Status: Chronic - Plan PT/OT, respiratory therapy, incentive spirometry, DVT proph w/SCDs clinically stable & ready for next SOC.Transfer to medical -: awaiitng rehab eval.discussed w pt & she is agreeable -: increase norvasc as BP still high & monitor -: home meds as below * . Review of Systems - Review of Systems Constitutional: weakness, malaise. negative: fever, chills, sweats, other Respiratory: negative: Cough, Dry, Shortness of Breath, Hemoptysis, SOB with Excertion, Pleuritic Pain, Sputum, Wheezing Cardiovascular: negative: chest pain, palpitations, orthopnea, paroxysmal nocturnal dyspnea, edema, light headedness, other Gastrointestinal: negative: Nausea, Vomiting, Abdominal Pain, Diarrhea, Constipation, Melena, Hematochezia, Other Musculoskeletal: negative: Neck Pain, Shoulder Pain, Arm Pain, Back Pain, Hand Pain, Leg Pain, Foot Pain, Other Neurological: negative: Weakness, Numbness, Incoordination, Change in Speech, Confusion, Seizures, Other Other: limited ROS d/t /encephalopathy - Medications/Allergies Allergies/Adverse Reactions: Allergies Allergy/AdvReac Type Severity Reaction Status Date / Time ciprofloxacin [From Cipro] Allergy Hives Verified 10/29/17 03:46 ciprofloxacin HCl Allergy Hives Verified 10/29/17 03:46 [From Cipro] codeine Allergy Hives Verified 10/29/17 03:46 hydrocodone Allergy Verified 10/29/17 03:46 meperidine HCl [From Demerol] Allergy nausea/vomi Verified 10/29/17 03:46 ting Penicillins Allergy Verified 10/29/17 03:46 promethazine HCl Allergy went wild, Verified 10/29/17 03:46 [From Phenergan] crazy Medications: Current Medications Acetaminophen (Tylenol) 650 mg PO Q4H PRN PRN Reason: Headache/Fever/Mild Pain (1-3) Last Admin: 11/08/18 11:30 Dose: 650 mg Albuterol/Ipratropium (Duoneb) 3 ml NEB Q4H PRN PRN Reason: Wheezing Amlodipine Besylate (Norvasc) 5 mg PO BID [facility] Aspirin (Ecotrin) 81 mg PO DAILY [facility] Last Admin: 11/09/18 08:59 Dose: 81 mg Bisacodyl (Dulcolax) 10 mg PO DAILYPRN PRN PRN Reason: Constipation Bisacodyl (Dulcolax) 10 mg [place] DAILYPRN PRN PRN Reason: Constipation Cholecalciferol (Vitamin D3) 2,000 units PO DAILY [facility] Last Admin: 11/09/18 08:59 Dose: 2,000 units Coenzyme Q10 (Coenzyme Q10) 100 mg PO QPM [facility] Last Admin: 11/08/18 19:44 Dose: 100 mg Duloxetine HCl (Cymbalta) 30 mg PO BID [facility] Last Admin: 11/09/18 08:59 Dose: 30 mg Ezetimibe (Zetia) 10 mg PO QPM [facility] Last Admin: 11/08/18 19:44 Dose: 10 mg Enoxaparin Sodium (Lovenox) 50 mg SC 0900,2100 [facility] Last Admin: 11/09/18 08:55 Dose: 50 mg Famotidine (Pepcid) 20 mg PO 0900 [facility] Last Admin: 11/09/18 08:59 Dose: 20 mg Hydralazine HCl (Apresoline) 10 mg SLOW IVP Q4H PRN PRN Reason: SBP > 170 or DBP > 100 Last Admin: 11/09/18 06:21 Dose: 10 mg Lisinopril (Zestril) 10 mg PO HS [facility] Last Admin: 11/08/18 19:39 Dose: 10 mg Loratadine (Claritin) 10 mg PO QAM [facility] Last Admin: 11/09/18 09:00 Dose: 10 mg Miscellaneous Medication (Pharmacy To Dose) 1 each IVPB ONE PRN PRN Reason: Chest Pain Stop: 12/05/18 23:01 Nebivolol (Bystolic) 5 mg PO DAILY [facility] Last Admin: 11/09/18 08:58 Dose: 5 mg Nitroglycerin (Nitrostat) 0.4 mg SL Q5MIN PRN PRN Reason: Chest Pain Phenytoin Sodium (Dilantin Er) 300 mg PO [facility] Last Admin: 11/08/18 19:43 Dose: 300 mg Multivit/Folic Acid/Iron ( Vitamin) 1 tab PO DAILY [facility] Last Admin: 11/09/18 08:59 Dose: 1 tab Quetiapine Fumarate (Seroquel) 25 mg PO HS [facility] Last Admin: 11/08/18 19:44 Dose: 25 mg Rosuvastatin Calcium (Crestor) 20 mg PO QPM [facility] Last Admin: 11/08/18 19:44 Dose: 20 mg Sertraline HCl (Zoloft) 50 mg PO DAILY [facility] Last Admin: 11/09/18 08:59 Dose: 50 mg Sodium Chloride (Flush - Normal Saline) 10 ml IVF Q12HR [facility] Last Admin: 11/09/18 09:01 Dose: 10 ml Sodium Chloride (Flush - Normal Saline) 10 ml IVF PRN PRN PRN Reason: Saline Flush Last Admin: 11/05/18 18:26 Dose: 10 ml
[2018-11-09] MEDS ORDERED: Lorazepam 2 MG/ML VIAL SLOW IVP SCH (20:00)
[2018-11-09] MEDS: Rosuvastatin 20 MG TAB PO SCH (20:13)
[2018-11-09] MEDS: Ezetimibe 10 MG TAB PO SCH (20:13)
[2018-11-09] MEDS: Lisinopril 10 MG TAB PO SCH (20:13)
[2018-11-09] MEDS: Amlodipine 5 MG TAB PO SCH (20:14)
[2018-11-09] MEDS: Ubidecarenone 50 MG CAP PO SCH (20:25)
[2018-11-10] MEDS: hydrALAZINE 20 MG/ML VIAL SLOW IVP PRN (06:23)
[2018-11-10 07:17] LABS: Hemoglobin 10.9 g/dL (12.0-16.0); Platelet Count 187 thou/uL (130-400)
[2018-11-10] MEDS: Aspirin 81 mg Enteric Coated Tablet PO SCH (07:49)
[2018-11-10] MEDS: DULoxetine 30 MG CAP PO SCH ×2 (07:49→21:29)
[2018-11-10] MEDS: Famotidine 20 MG TAB PO SCH (07:50)
[2018-11-10] MEDS: Amlodipine 5 MG TAB PO SCH ×3 (07:50→21:28)
[2018-11-10] MEDS: Loratadine 10 MG TAB PO SCH (07:50)
[2018-11-10] MEDS: Nebivolol HCl 2.5 MG TAB PO SCH (11:54)
[2018-11-10] MEDS: Enoxaparin Sodium 60 MG/0.6 ML SYRINGE SC SCH ×2 (11:55→21:29)
[2018-11-10] MEDS: Prenatal Vitamin 1 TAB PO SCH (11:55)
--- NOTE | 2018-11-10 13:36 | PDOC.PN ---
- Subjective Encounter Start Date: 11/10/18 Encounter Start Time: 13:34 Subjective: no new complaints .no overnight events. -: feels Ok - Objective Resuscitation Status - Order Detail: 11/06/18 17:08 Resuscitation Status Routine Resuscitation Status: DNAR: NO Resuscitation Discussed with: Daughter member at bedside. MAR Reviewed: Yes Vital Signs & Weight: Vital Signs (12 hours) Temp Pulse Resp BP Pulse Ox 11/10/18 12:00 91 11/10/18 08:00 95 11/10/18 07:50 91 11/10/18 07:25 97.7 F 91 16 103/49 L 95 11/10/18 06:23 85 11/10/18 05:00 98.1 F 85 18 183/90 H 95 Weight Weight 101 lb 7 oz I&O: 11/09/18 11/10/18 11/11/18 06:59 06:59 06:59 Intake Total 370 240 Balance 370 240 Result Diagrams: 11/10/18 06:02 11/10/18 06:02 Phys Exam - Physical Examination Constitutional: NAD HEENT: PERRLA, moist MMs, sclera anicteric, oral pharynx no lesions Neck: no nodes, no JVD, supple, full ROM Respiratory: no wheezing, no rales, no rhonchi, clear to auscultation bilateral Cardiovascular: RRR, no significant murmur, no rub Gastrointestinal: soft, non-tender, no distention, positive bowel sounds Musculoskeletal: no edema, pulses present Neurological: non-focal, normal sensation, moves all 4 limbs Psychiatric: normal affect, A&O x 3 Skin: no rash Dx/Plan (1) NSTEMI (non-ST elevated myocardial infarction) Code(s): I21.4 - NON-ST ELEVATION (NSTEMI) MYOCARDIAL INFARCTION Status: Acute Comment: Medical Management.on Lovenox BID.ASA,statin ,BB,СВЕТЛАНА-I (2) Seizure Code(s): R56.9 - UNSPECIFIED CONVULSIONS Status: Chronic Comment: stable on Dilantin (3) Metabolic encephalopathy Code(s): G93.41 - METABOLIC ENCEPHALOPATHY Status: Acute Comment: improving.started on seroquel (4) Hypertensive urgency Code(s): I16.0 - HYPERTENSIVE URGENCY Status: Chronic Comment: impreoved (5) JAMES (obstructive sleep apnea) Code(s): G47.33 - OBSTRUCTIVE SLEEP APNEA (ADULT) (PEDIATRIC) Status: Chronic Comment: refused Sleep study or CPAP (6) CAD (coronary artery disease) Code(s): I25.10 - ATHSCL HEART DISEASE OF [place] CORONARY ARTERY W/O ANG PCTRS Status: Chronic Comment: medical management per cardiology.on ASA,statin.BB, СВЕТЛАНА-I (7) Hyperlipidemia Code(s): E78.5 - HYPERLIPIDEMIA, UNSPECIFIED Status: Chronic (8) Hypertension Code(s): I10 - ESSENTIAL (PRIMARY) HYPERTENSION Status: Chronic - Plan PT/OT, respiratory therapy, incentive spirometry, out of bed/ambulate, DVT proph w/SCDs awaiting rehab placement.Hd stable -: cont seroquel and zoloft. due to dementia -: cont dilatin. -: H/H stable -: BP better. avoidable day #1 * . Review of Systems - Review of Systems Constitutional: weakness, malaise Respiratory: SOB with Excertion Other: limited due to Dementia - Medications/Allergies Allergies/Adverse Reactions: Allergies Allergy/AdvReac Type Severity Reaction Status Date / Time ciprofloxacin [From Cipro] Allergy Hives Verified 10/29/17 03:46 ciprofloxacin HCl Allergy Hives Verified 10/29/17 03:46 [From Cipro] codeine Allergy Hives Verified 10/29/17 03:46 hydrocodone Allergy Verified 10/29/17 03:46 meperidine HCl [From Demerol] Allergy nausea/vomi Verified 10/29/17 03:46 ting Penicillins Allergy Verified 10/29/17 03:46 promethazine HCl Allergy went wild, Verified 10/29/17 03:46 [From Phenergan] crazy Medications: Current Medications Acetaminophen (Tylenol) 650 mg PO Q4H PRN PRN Reason: Headache/Fever/Mild Pain (1-3) Last Admin: 11/08/18 11:30 Dose: 650 mg Albuterol/Ipratropium (Duoneb) 3 ml NEB Q4H PRN PRN Reason: Wheezing Amlodipine Besylate (Norvasc) 2.5 mg PO BID [facility] Last Admin: 11/10/18 12:00 Dose: 2.5 mg Aspirin (Ecotrin) 81 mg PO DAILY [facility] Last Admin: 11/10/18 07:49 Dose: 81 mg Bisacodyl (Dulcolax) 10 mg PO DAILYPRN PRN PRN Reason: Constipation Bisacodyl (Dulcolax) 10 mg [place] DAILYPRN PRN PRN Reason: Constipation Cholecalciferol (Vitamin D3) 2,000 units PO DAILY [facility] Last Admin: 11/10/18 07:49 Dose: 2,000 units Coenzyme Q10 (Coenzyme Q10) 100 mg PO QPM [facility] Last Admin: 11/09/18 20:25 Dose: 100 mg Duloxetine HCl (Cymbalta) 30 mg PO BID [facility] Last Admin: 11/10/18 07:49 Dose: 30 mg Ezetimibe (Zetia) 10 mg PO QPM [facility] Last Admin: 11/09/18 20:13 Dose: 10 mg Enoxaparin Sodium (Lovenox) 50 mg SC 0900,2100 [facility] Last Admin: 11/10/18 11:55 Dose: 50 mg Famotidine (Pepcid) 20 mg PO 0900 [facility] Last Admin: 11/10/18 07:50 Dose: 20 mg Hydralazine HCl (Apresoline) 10 mg SLOW IVP Q4H PRN PRN Reason: SBP > 170 or DBP > 100 Last Admin: 11/10/18 06:23 Dose: 10 mg Lisinopril (Zestril) 10 mg PO [facility] Last Admin: 11/09/18 20:13 Dose: 10 mg Loratadine (Claritin) 10 mg PO QAM [facility] Last Admin: 11/10/18 07:50 Dose: 10 mg Miscellaneous Medication (Pharmacy To Dose) 1 each IVPB ONE PRN PRN Reason: Chest Pain Stop: 12/05/18 23:01 Nebivolol (Bystolic) 5 mg PO DAILY [facility] Last Admin: 11/10/18 11:54 Dose: 5 mg Nitroglycerin (Nitrostat) 0.4 mg SL Q5MIN PRN PRN Reason: Chest Pain Phenytoin Sodium (Dilantin Er) 300 mg PO [facility] Last Admin: 11/09/18 20:24 Dose: 300 mg Multivit/Folic Acid/Iron ( Vitamin) 1 tab PO DAILY [facility] Last Admin: 11/10/18 11:55 Dose: 1 tab Quetiapine Fumarate (Seroquel) 25 mg PO [facility] Last Admin: 11/09/18 20:14 Dose: 25 mg Rosuvastatin Calcium (Crestor) 20 mg PO QPM [facility] Last Admin: 11/09/18 20:13 Dose: 20 mg Sertraline HCl (Zoloft) 50 mg PO DAILY [facility] Last Admin: 11/10/18 07:50 Dose: 50 mg Sodium Chloride (Flush - Normal Saline) 10 ml IVF Q12HR [facility] Last Admin: 11/10/18 07:55 Dose: 10 ml Sodium Chloride (Flush - Normal Saline) 10 ml IVF PRN PRN PRN Reason: Saline Flush Last Admin: 11/05/18 18:26 Dose: 10 ml
[2018-11-10] MEDS: Lisinopril 10 MG TAB PO SCH (21:30)
[2018-11-10] MEDS: Ezetimibe 10 MG TAB PO SCH (21:30)
[2018-11-10] MEDS: Rosuvastatin 20 MG TAB PO SCH (21:31)
[2018-11-10] MEDS: Ubidecarenone 50 MG CAP PO SCH (21:31)
[2018-11-10] MEDS: Acetaminophen 325 MG TAB PO PRN (21:32)
[2018-11-11] MEDS: DULoxetine 30 MG CAP PO SCH (07:57)
[2018-11-11] MEDS: Aspirin 81 mg Enteric Coated Tablet PO SCH (07:57)
[2018-11-11] MEDS: Prenatal Vitamin 1 TAB PO SCH (07:57)
[2018-11-11] MEDS: Nebivolol HCl 2.5 MG TAB PO SCH (07:57)
[2018-11-11] MEDS: Amlodipine 5 MG TAB PO SCH (07:58)
[2018-11-11] MEDS: Loratadine 10 MG TAB PO SCH (07:59)
[2018-11-11] MEDS: Famotidine 20 MG TAB PO SCH (07:59)
[2018-11-11 08:00] VITALS: BP 161/69
[2018-11-11 08:02] VITALS: TEMP 97.6
[2018-11-11] MEDS ORDERED: Enoxaparin Sodium 40 MG/0.4 ML SYRINGE SC SCH (09:00)
--- NOTE | 2018-11-11 09:14 | PDOC.CTH ---
Cardiology Progress Note - Subjective The pt seen and examined. No overnight events. No cardiac complaints. - Objective Vital Signs Temp Pulse Resp BP BP Pulse Ox 11/11/18 08:00 97.6 F 84 20 161/69 H 98 11/11/18 07:58 84 161/69 H 11/10/18 21:30 138/72 11/10/18 21:28 76 138/72 11/10/18 21:24 97.4 F L 76 18 138/72 94 L Weight 101 lb 7 oz 11/10/18 11/11/18 11/12/18 06:59 06:59 06:59 Intake Total 370 860 Balance 370 860 - Physical Examination General/Neuro: other: (intermittent confused) Neck: no JVD present Lungs: CTA (diminished at bases), other: Abdomen: soft Extremities: other: (No edema) - Labs Result Diagrams: 11/10/18 06:02 11/10/18 06:02 Troponin/CKMB CK-MB (CK-2) 1.8 ng/mL (0-6.6) 11/04/18 19:12 Troponin I 6.357 ng/mL (< 0.028) H* 11/05/18 18:38 - Assessment/Plan 1. NSTEMI - Elevated up to 6.357; No further cardiac work up at this moment and cont. medical tx only. Cont. to monitor on tele 2. CAD with s/p LHC in 2014 with 60-70% stenosis in LAD and 30% in RCA - cont. medical tx only. 3. HTN - stable; 4. TAVR in 08/2015 - stable 5. TIA/Seizure - managed by neurologist 6. Demintia - became worse at last night. 7. Anxiety - stable with Seroquel at HS. 8. Bronchitis/PNA - stable; managed by PCP MAR reviewed * DNR. * Dr Stewart's pt. * We will sign off from his care. Please call us for any questions. Review of Systems - Review of Systems Constitutional: reports: no symptoms reported EENTM: reports: no symptoms reported Respiratory: reports: no symptoms reported Cardiac (ROS): reports: no symptoms reported ABD/GI: reports: no symptoms reported : reports: no symptoms reported Musculoskeletal: reports: no symptoms reported
--- NOTE | 2018-11-11 11:26 | PDOC.PN ---
- Subjective Encounter Start Date: 11/11/18 Encounter Start Time: 11:25 Subjective: no new complaints. no overnight events - Objective Resuscitation Status - Order Detail: 11/06/18 17:08 Resuscitation Status Routine Resuscitation Status: DNAR: NO Resuscitation Discussed with: Daughter member at bedside. MAR Reviewed: Yes Vital Signs & Weight: Vital Signs (12 hours) Temp Pulse Resp BP BP Pulse Ox 11/11/18 08:00 97.6 F 84 20 161/69 H 98 11/11/18 07:58 84 161/69 H Weight Weight 101 lb 7 oz I&O: 11/10/18 11/11/18 11/12/18 06:59 06:59 06:59 Intake Total 370 860 Balance 370 860 Result Diagrams: 11/10/18 06:02 11/10/18 06:02 Phys Exam - Physical Examination Constitutional: NAD HEENT: PERRLA, moist MMs, sclera anicteric, oral pharynx no lesions Neck: no nodes, no JVD, supple, full ROM Respiratory: no wheezing, no rales, no rhonchi, clear to auscultation bilateral Cardiovascular: RRR, no significant murmur Gastrointestinal: soft, non-tender, no distention, positive bowel sounds Musculoskeletal: no edema, pulses present Neurological: moves all 4 limbs Dx/Plan (1) NSTEMI (non-ST elevated myocardial infarction) Code(s): I21.4 - NON-ST ELEVATION (NSTEMI) MYOCARDIAL INFARCTION Status: Acute Comment: Medical Management.on Lovenox BID.ASA,statin ,BB,СВЕТЛАНА-I (2) Seizure Code(s): R56.9 - UNSPECIFIED CONVULSIONS Status: Chronic Comment: stable on Dilantin (3) Metabolic encephalopathy Code(s): G93.41 - METABOLIC ENCEPHALOPATHY Status: Acute Comment: improving.started on seroquel (4) Hypertensive urgency Code(s): I16.0 - HYPERTENSIVE URGENCY Status: Chronic Comment: impreoved (5) JAMES (obstructive sleep apnea) Code(s): G47.33 - OBSTRUCTIVE SLEEP APNEA (ADULT) (PEDIATRIC) Status: Chronic Comment: refused Sleep study or CPAP (6) CAD (coronary artery disease) Code(s): I25.10 - ATHSCL HEART DISEASE OF [place] CORONARY ARTERY W/O ANG PCTRS Status: Chronic Comment: medical management per cardiology.on ASA,statin.BB, СВЕТЛАНА-I (7) Hyperlipidemia Code(s): E78.5 - HYPERLIPIDEMIA, UNSPECIFIED Status: Chronic (8) Hypertension Code(s): I10 - ESSENTIAL (PRIMARY) HYPERTENSION Status: Chronic - Plan PT/OT, DVT proph w/SCDs awaitng rehab approval.HD stable -: cont meds as below. -: Avoidable day #2 * . Review of Systems - Review of Systems Constitutional: weakness, malaise. negative: fever, chills, sweats, other Respiratory: negative: Cough, Dry, Shortness of Breath, Hemoptysis, SOB with Excertion, Pleuritic Pain, Sputum, Wheezing Cardiovascular: negative: chest pain, palpitations, orthopnea, paroxysmal nocturnal dyspnea, edema, light headedness, other Gastrointestinal: negative: Nausea, Vomiting, Abdominal Pain, Diarrhea, Constipation, Melena, Hematochezia, Other Genitourinary: negative: Dysuria, Frequency, Incontinence, Hematuria, Retention , Other - Medications/Allergies Allergies/Adverse Reactions: Allergies Allergy/AdvReac Type Severity Reaction Status Date / Time ciprofloxacin [From Cipro] Allergy Hives Verified 10/29/17 03:46 ciprofloxacin HCl Allergy Hives Verified 10/29/17 03:46 [From Cipro] codeine Allergy Hives Verified 10/29/17 03:46 hydrocodone Allergy Verified 10/29/17 03:46 meperidine HCl [From Demerol] Allergy nausea/vomi Verified 10/29/17 03:46 ting Penicillins Allergy Verified 10/29/17 03:46 promethazine HCl Allergy went wild, Verified 10/29/17 03:46 [From Phenergan] crazy Medications: Current Medications Acetaminophen (Tylenol) 650 mg PO Q4H PRN PRN Reason: Headache/Fever/Mild Pain (1-3) Last Admin: 11/10/18 21:32 Dose: 650 mg Albuterol/Ipratropium (Duoneb) 3 ml NEB Q4H PRN PRN Reason: Wheezing Amlodipine Besylate (Norvasc) 2.5 mg PO BID [facility] Last Admin: 11/11/18 07:58 Dose: 2.5 mg Aspirin (Ecotrin) 81 mg PO DAILY [facility] Last Admin: 11/11/18 07:57 Dose: 81 mg Bisacodyl (Dulcolax) 10 mg PO DAILYPRN PRN PRN Reason: Constipation Bisacodyl (Dulcolax) 10 mg GA DAILYPRN PRN PRN Reason: Constipation Cholecalciferol (Vitamin D3) 2,000 units PO DAILY [facility] Last Admin: 11/11/18 07:56 Dose: 2,000 units Coenzyme Q10 (Coenzyme Q10) 100 mg PO QPM [facility] Last Admin: 11/10/18 21:31 Dose: 100 mg Duloxetine HCl (Cymbalta) 30 mg PO BID [facility] Last Admin: 11/11/18 07:57 Dose: 30 mg Ezetimibe (Zetia) 10 mg PO QPM [facility] Last Admin: 11/10/18 21:30 Dose: 10 mg Enoxaparin Sodium (Lovenox) 40 mg SC 0900 [facility] Famotidine (Pepcid) 20 mg PO 0900 [facility] Last Admin: 11/11/18 07:59 Dose: 20 mg Hydralazine HCl (Apresoline) 10 mg SLOW IVP Q4H PRN PRN Reason: SBP > 170 or DBP > 100 Last Admin: 11/10/18 06:23 Dose: 10 mg Lisinopril (Zestril) 10 mg PO [facility] Last Admin: 11/10/18 21:30 Dose: 10 mg Loratad[facility]aritin) [facility] Last Admin: 11/11/18 07:59 Dose: 10 mg Miscellaneous Medication (Pharmacy To Dose) 1 each IVPB ONE PRN PRN Reason: Chest Pain Stop: 12/05/18 23:01 Nebivolol (Bystolic) 5 mg PO DAILY [facility] Last Admin: 11/11/18 07:57 Dose: 5 mg Nitroglycerin (Nitrostat) 0.4 mg SL Q5MIN PRN PRN Reason: Chest Pain Phenytoin Sodium (Dilantin Er) 300 mg PO [facility] Last Admin: 11/10/18 21:30 Dose: 300 mg Multivit/Folic Acid/Iron ( Vitamin) 1 tab PO DAILY [facility] Last Admin: 11/11/18 07:57 Dose: 1 tab Quetiapine Fumarate (Seroquel) 25 mg PO [facility] Last Admin: 11/10/18 21:31 Dose: 25 mg Rosuvastatin Calcium (Crestor) 20 mg PO QPM [facility] Last Admin: 11/10/18 21:31 Dose: 20 mg Sertraline HCl (Zoloft) 50 mg PO DAILY [facility] Last Admin: 11/11/18 07:57 Dose: 50 mg Sodium Chloride (Flush - Normal Saline) 10 ml IVF Q12HR [facility] Last Admin: 11/11/18 07:59 Dose: 10 ml Sodium Chloride (Flush - Normal Saline) 10 ml IVF PRN PRN PRN Reason: Saline Flush Last Admin: 11/05/18 18:26 Dose: 10 ml
--- NOTE | 2018-11-12 05:01 | DIS ---
DATE OF ADMISSION: 11/05/2018 DATE OF DISCHARGE: 11/11/2018 PRIMARY CARE PHYSICIAN: MARIA DE JESUS Solis. DISCHARGE DISPOSITION: [facility]. DISCHARGE DIAGNOSES: 1. Non ST-elevation myocardial infarction, recommended medical management only. 2. Metabolic encephalopathy cleared. 3. History of seizures. 4. Hypertensive urgency, improved. 5. Essential hypertension. 6. Obstructive sleep apnea. The patient does not want any sleep study or CPAP for this. 7. History of coronary artery disease. 8. Hypertension. 9. Dyslipidemia. 10. History of aortic valve replacement and history of transient ischemic attack. DISCHARGE MEDICATIONS: As follows: 1. Crestor 20 mg daily. 2. Zoloft 50 mg daily. 3. Phenytoin extended release 300 mg at bedtime. 4. Sublingual nitroglycerin p.r.n. 5. Bystolic 5 mg daily. 6. Zestril 10 mg daily. 7. Famotidine 20 mg daily. 8. Zetia 10 mg daily. 9. Cymbalta 30 mg p.o. b.i.d. 10. Clonidine 0.1 mg q.4 hours p.r.n. for systolic blood pressure more than 160. NEW MEDICATIONS: 1. DuoNeb p.r.n. q.4 hours. 2. Seroquel 25 mg at bedtime. 3. Aspirin 81 mg daily. 4. Amlodipine 2.5 mg p.o. b.i.d. IN-HOUSE CONSULTATIONS: 1. Cardiology, Dr. Manning. 2. Neurology, Dr. Vazquez Azevedo. 3. Pulmonary Medicine, Dr. Grady. PROCEDURES DONE IN THE HOSPITAL: 1. CT angio of the head and neck upon presentation, which shows severe chronic stenosis at the origin of left common carotid artery and atherosclerosis of multiple arteries without any acute occlusion. 2. CT scan of the brain upon presentation, which did not show any acute findings. Small old infarction in the left occipital lobe and left cerebellum were noticed. 3. MRI of the brain, which did does not show any acute infarction. Stable malacic and gliotic changes were seen in the left occipital lobe. There were some concern for remote hemorrhagic lacunar infarction versus amyloid angiopathy. Those changes were chronic. 4. Transthoracic echocardiogram which shows EF of 55% to 60% and mild diastolic dysfunction. [id number] aortic regurgitation is also seen. HISTORY OF PRESENTING ILLNESS: Ms. El is an 83-year-old female with past medical history as outlined above, presented to the emergency room and brought in by her family. According to the admission H and P, the patient was brought in by her daughter for complaints of bizarre behavior and altered mental status in the form of increased agitation. Upon presentation, she had right bundle branch block in the EKG. CT scan of the brain and CT angio did not show any acute ischemic changes. Troponin was found to be elevated at 1.6. She was admitted with a presumptive diagnosis of non ST-elevation PR and further workup of altered mental status. Rule out possible seizure or CVA. Please see admission history and physical for further details. HOSPITAL COURSE: The patient underwent MRI of the brain, which was negative for any evidence of acute stroke. Neurology was consulted and Dr. Azevedo saw the patient. He had no new recommendations except to continue her home medication with possible reason for presentation being seizure secondary to prior occipital stroke. She was also seen by Cardiology for elevated cardiac enzymes. Her serial troponin was trended and her troponin went from 0.198 to 1.033, then 1.639, then 6.357. Dr. Manning saw the patient and recommended medical management only. She was started on aspirin 81 mg daily and was continued on Zetia, statin, as well as lisinopril and Bystolic. Amlodipine was later added and titrated as her blood pressure was running high in the hospital. She was also seen by Pulmonary Critical Care Medicine, Dr. Grady. She was initially admitted to [facility]. Dr. Grady added some Seroquel given her behavioral changes and she was monitored. This greatly helped with her behavioral issues and she had no agitation in the hospital. She did show some sundowning like symptoms while in the hospital but eventually, she was medically stable and was ready to be transitioned to next level of care. Rehab was arranged for her as recommended by OT and PT and according to the family's wishes. CODE STATUS: DNR. She was seen and examined prior to discharge today. Please see hospitalist progress note for further details including [id number] interaction. TOTAL TIME SPENT: 36 minutes. Job ID: [id number]
== END 2018-11-11 17:10 | DRG 280 ==
LOC: ERS 18:13 → ERHOLD 20:35 → OBSVTOIN 11-05 12:39 → 2SE 11-05 14:12 → IMCU/EMU 11-06 15:24 → T4-B 11-09 12:41
PROVIDERS: ADMIT Emergency Medicine; ATTEND Emergency Medicine
DX: I21.4 Non-ST elevation (NSTEMI) myocardial infarction (principal); G92 Toxic encephalopathy; I16.1 Hypertensive emergency; F05 Delirium due to known physiological condition; I10 Essential (primary) hypertension; G47.33 Obstructive sleep apnea (adult) (pediatric); Z95.2 Presence of prosthetic heart valve; I25.10 Atherosclerotic heart disease of native coronary artery without angina pectoris; G40.909 Epilepsy, unspecified, not intractable, without status epilepticus; Z86.73 Personal history of transient ischemic attack (TIA), and cerebral infarction without residual deficits; E78.5 Hyperlipidemia, unspecified; I45.10 Unspecified right bundle-branch block; Z66 Do not resuscitate; T46.5X5A Adverse effect of other antihypertensive drugs, initial encounter; F41.9 Anxiety disorder, unspecified; R40.2362 Coma scale, best motor response, obeys commands, at arrival to emergency department; R40.2142 Coma scale, eyes open, spontaneous, at arrival to emergency department; R40.2242 Coma scale, best verbal response, confused conversation, at arrival to emergency department
CPT/HCPCS: 36415; 36416; 51701; 70450; 70496; 70498; 70551; 80048; 80053; 80185; 81003; 82553; 82565; 83880; 84484; 85014; 85018; 85025; 85049; 85610; 85730; 93005; 93010; 93306; 94660; 94760; 96372; A4353; J0360; J1650; J2060; S0028

== ENCOUNTER 2019-04-14 22:28 | Emergency (ER) | payer MEDICARE, BC ==
[2019-04-14 23:22] LABS: #Eosinphils 0.2 thou/uL (0.0-0.7); #Lymphocytes 1.6 thou/uL (1.20-3.40); #Monocytes 0.5 thou/uL (0.11-0.59); #Neutrophils 5.4 thou/uL (1.40-6.50); %Basophils 0.2 % (0.0-1.0); %Eosinophils 2.1 % (0.0-10.0); %Lymphocytes 20.3 % (21.0-51.0); %Monocytes 7.1 % (0.0-10.0); %Neutrophils 70.3 % (42.0-75.0); Hemoglobin 11.9 g/dL (12.0-16.0); Mean Corpuscular HGB CONC 33.4 g/dL (32.0-36.0); Mean Corpuscular Hemoglobin 31.8 pg (27.0-31.0); Mean Corpuscular Volume 95.2 fL (78.0-98.0); Mean Platelet Volume 8.2 fL (7.4-10.4); Platelet Count 154 thou/uL (130-400); RBC Distribution Width 11.2 % (11.5-14.5); Red Blood Cell (RBC) Count 3.75 mill/uL (4.20-5.40); White Blood Cell (WBC) Count 7.6 thou/uL (4.8-10.8)
--- NOTE | 2019-04-14 23:22 | RAD ---
AP pelvis one view HISTORY: Fall. Pelvic injury. COMPARISON: 10/09/2017. FINDINGS: Sacral alae and pelvic rings are intact. Mild degenerative changes of the hips. No displace d fractures are apparent. Calcification over the arterial structures. IMPRESSION: No acute osseous abnormalities are demonstrated.
--- NOTE | 2019-04-14 23:22 | RAD ---
Right hip 2 views HISTORY: Fall. Right hip in findings mild joint space narrowing, osteophytosis and subchondral sclero sis. Osseous structures are otherwise. No acute fracture or dislocation. Metallic clips over the right. Calcification over the arterial structures. IMPRESSION: Mild osseous right hip. Osteoporosis. Atherosclerosis.
[2019-04-14 23:31] LABS: ALT (SGPT) 13 U/L (8-55); AST (SGOT) 16 U/L (5-34); Albumin 4.3 g/dL (3.4-4.8); Alkaline Phosphatase 153 U/L (40-150); Anion Gap 15 mmol/L (10-20); BUN (Urea Nitrogen) 36 mg/dL (9.8-20.1); Bilirubin, Total 0.2 mg/dL (0.2-1.2); Calc. Creatinine Clearance 0 mL/min (70-130); Calcium 9.1 mg/dL (7.8-10.44); Carbon Dioxide 24 mmol/L (23-31); Chloride 102 mmol/L (98-107); Estimated GFR-MDRD 30; Globulin 2.5 g/dL (2.4-3.5); Glucose 104 mg/dL (83-110); Potassium 4.3 mmol/L (3.5-5.1); Protein, Total 6.8 g/dL (6.0-8.3); Sodium 137 mmol/L (136-145)
--- NOTE | 2019-04-14 23:37 | CT ---
CT head noncontrast HISTORY: Fall. Head injury. COMPARISON: 11/04/2018. FINDINGS: There is no evidence of acute intracranial hemorrhage or infarct. Diffuse cortical atrophy and prominent chronic ischemic small vessel disease are again demonstrated. There is no mass effect or shift of midline structures. Visualized paranasal sinuses remain well aerated. IMPRESSION: Chronic-type findings are stable. No acute intracranial abnormalities are demonstrated.
[2019-04-15 00:42] LABS: Bilirubin Negative (Negative); Blood, Urine Negative (Negative); Clarity CLOUDY (Clear); Glucose, Urine (Dipstick) Negative (Negative); Leukocyte Negative (Negative); Nitrite Negative (Negative); Protein, Urine (Dipstick) Negative (Neg-Trace); Specific Gravity, Urine 1.017 (1.002-1.036); Urobilinogen 0.2 mg/dL (0.2-1.0)
--- NOTE | 2019-04-18 12:08 | EKG ---
Test Reason : Blood Pressure : / mmHG Vent. Rate : 068 BPM Atrial Rate : 068 BPM P-R Int : 188 ms QRS Dur : 134 ms QT Int : 454 ms P-R-T Axes : 051 -15 063 degrees QTc Int : 482 ms Normal sinus rhythm Right bundle branch block Abnormal ECG Confirmed by SANJUANITA GAYTAN DO ([id number]), editor index MARI KANG ([id number]) on 04/18/2019 12:07:46 PM Referred By: Confirmed By:SANJUANITA GAYTAN DO
== END 2019-04-15 01:55 | disposition home or self-care (01) ==
LOC: ERS 22:28
DX: S00.03XA Contusion of scalp, initial encounter (principal); M54.9 Dorsalgia, unspecified; G89.29 Other chronic pain; I10 Essential (primary) hypertension; F41.9 Anxiety disorder, unspecified; I20.9 Angina pectoris, unspecified; Z86.73 Personal history of transient ischemic attack (TIA), and cerebral infarction without residual deficits; Z79.899 Other long term (current) drug therapy; W18.30XA Fall on same level, unspecified, initial encounter
CPT/HCPCS: 70450; 72170; 80053; 81003; 84484; 85025; 93005

== ENCOUNTER 2019-07-16 19:44 | Emergency (ER) | payer MEDICARE, BC ==
[2019-07-16 20:39] LABS: #Eosinphils 0.1 thou/uL (0.0-0.7); #Lymphocytes 1.7 thou/uL (1.20-3.40); #Monocytes 0.5 thou/uL (0.11-0.59); #Neutrophils 3.6 thou/uL (1.40-6.50); %Basophils 0.5 % (0.0-1.0); %Eosinophils 1.8 % (0.0-10.0); %Lymphocytes 27.9 % (21.0-51.0); %Monocytes 8.9 % (0.0-10.0); %Neutrophils 60.9 % (42.0-75.0); Hemoglobin 11.1 g/dL (12.0-16.0); Mean Corpuscular HGB CONC 33.7 g/dL (32.0-36.0); Mean Corpuscular Hemoglobin 32.1 pg (27.0-31.0); Mean Corpuscular Volume 95.3 fL (78.0-98.0); Mean Platelet Volume 7.8 fL (7.4-10.4); Platelet Count 209 thou/uL (130-400); RBC Distribution Width 11.5 % (11.5-14.5); Red Blood Cell (RBC) Count 3.47 mill/uL (4.20-5.40); White Blood Cell (WBC) Count 5.9 thou/uL (4.8-10.8)
--- NOTE | 2019-07-16 20:56 | RAD ---
ONE VIEW CHEST: 07/16/19 COMPARISON: 06/15/19 HISTORY: Confusion and anorexia. FINDINGS: Stable cardiomegaly, stent projecting over the cardiac silhouette and atherosclerosis of the aorta. Hyperinflation with chronic changes. No masses or consolidation. No pneumothorax or acute osseous abn ormalities. IMPRESSION: 1. Atherosclerosis. 2. Cardiomegaly. 3. Hyperinflation with chronic changes. 4. No acute cardiopulmonary process. POS: RAMSES
[2019-07-16 20:59] LABS: ALT (SGPT) 16 U/L (8-55); AST (SGOT) 18 U/L (5-34); Albumin 3.9 g/dL (3.4-4.8); Alkaline Phosphatase 103 U/L (40-110); Anion Gap 14 mmol/L (10-20); BUN (Urea Nitrogen) 41 mg/dL (9.8-20.1); Bilirubin, Total 0.2 mg/dL (0.2-1.2); Calc. Creatinine Clearance 0 mL/min (70-130); Calcium 9.1 mg/dL (7.8-10.44); Carbon Dioxide 19 mmol/L (23-31); Chloride 106 mmol/L (98-107); Estimated GFR-MDRD 24; Globulin 2.4 g/dL (2.4-3.5); Glucose 90 mg/dL (83-110); Lipase 70 U/L (8-78); Potassium 4.5 mmol/L (3.5-5.1); Protein, Total 6.3 g/dL (6.0-8.3); Sodium 134 mmol/L (136-145)
[2019-07-16 21:59] LABS: Bacteria/HPF 4+ HPF (None Seen); Bilirubin Negative (Negative); Blood, Urine 1+ (Negative); Clarity Turbid (Clear); Glucose, Urine (Dipstick) Normal (Negative); Leukocyte 500 Leu/uL (Negative); Nitrite Negative (Negative); Protein, Urine (Dipstick) 30 mg/dL (Neg-Trace); Squamous Epithelial 0-3 HPF (0-3); Urobilinogen Normal mg/dL (Less than 2)
[2019-07-17] MEDS ORDERED: cefTRIAXone\\ROCEPHIN 1 GM VIAL ONE ×2 (00:12→00:24)
[2019-07-17] MEDS ORDERED: Lidocaine 1% (PF) 30 ML VIAL ONE (00:12)
== END 2019-07-17 01:27 ==
LOC: ERS 19:44
DX: N39.0 Urinary tract infection, site not specified (principal); R41.82 Altered mental status, unspecified; E78.5 Hyperlipidemia, unspecified; I10 Essential (primary) hypertension; Z79.899 Other long term (current) drug therapy
CPT/HCPCS: 51701; 71045; 80053; 81003; 81015; 83690; 84484; 85025; 87077; 87086; 87186; 93005; 96361; 96365; J0696; J2001

== ENCOUNTER 2019-07-24 20:57 | Emergency (ER) | payer MEDICARE, BC ==
[2019-07-24 21:44] LABS: #Basophils 0.1 thou/uL (0.0-0.2); #Eosinphils 0.1 thou/uL (0.0-0.7); #Lymphocytes 1.9 thou/uL (1.20-3.40); #Monocytes 0.6 thou/uL (0.11-0.59); %Eosinophils 2.2 % (0.0-10.0); %Lymphocytes 28.1 % (21.0-51.0); %Monocytes 8.9 % (0.0-10.0); %Neutrophils 59.8 % (42.0-75.0); Mean Corpuscular HGB CONC 33.8 g/dL (32.0-36.0); Mean Corpuscular Hemoglobin 32.4 pg (27.0-31.0); Mean Corpuscular Volume 95.8 fL (78.0-98.0); Mean Platelet Volume 7.5 fL (7.4-10.4); Platelet Count 216 thou/uL (130-400); RBC Distribution Width 11.7 % (11.5-14.5); Red Blood Cell (RBC) Count 3.41 mill/uL (4.20-5.40); White Blood Cell (WBC) Count 6.7 thou/uL (4.8-10.8)
[2019-07-24 21:51] LABS: Bilirubin Negative (Negative); Blood, Urine Negative (Negative); Clarity Clear (Clear); Glucose, Urine (Dipstick) Normal (Negative); Leukocyte Negative Leu/uL (Negative); Nitrite Negative (Negative); Protein, Urine (Dipstick) Negative (Neg-Trace); Urobilinogen Normal mg/dL (Less than 2)
[2019-07-24 22:05] LABS: ALT (SGPT) 16 U/L (8-55); AST (SGOT) 16 U/L (5-34); Albumin 3.7 g/dL (3.4-4.8); Alkaline Phosphatase 83 U/L (40-110); Anion Gap 10 mmol/L (10-20); BUN (Urea Nitrogen) 21 mg/dL (9.8-20.1); Bilirubin, Total Less than 0.2 mg/dL (0.2-1.2); Calc. Creatinine Clearance 0 mL/min (70-130); Calcium 8.6 mg/dL (7.8-10.44); Carbon Dioxide 25 mmol/L (23-31); Chloride 104 mmol/L (98-107); Estimated GFR-MDRD 40; Globulin 2.3 g/dL (2.4-3.5); Glucose 94 mg/dL (83-110); Potassium 3.9 mmol/L (3.5-5.1); Sodium 135 mmol/L (136-145)
== END 2019-07-24 22:59 | disposition home or self-care (01) ==
LOC: ERS 20:57
DX: R45.1 Restlessness and agitation (principal); E78.5 Hyperlipidemia, unspecified; I10 Essential (primary) hypertension; F03.90 Unspecified dementia, unspecified severity, without behavioral disturbance, psychotic disturbance, mood disturbance, and anxiety; D64.9 Anemia, unspecified; F41.9 Anxiety disorder, unspecified; F32.9 Major depressive disorder, single episode, unspecified; Z86.73 Personal history of transient ischemic attack (TIA), and cerebral infarction without residual deficits
CPT/HCPCS: 36415; 51701; 80053; 81003; 85025; 93005; A4353

== ENCOUNTER 2019-08-13 00:45 | Inpatient (IN) | payer MEDICARE, BC ==
[2019-08-13] MEDS ORDERED: Morphine 2 MG/ML SYRINGE ONE (01:01)
[2019-08-13 01:32] LABS: #Eosinphils 0.2 thou/uL (0.0-0.7); #Lymphocytes 3.8 thou/uL (1.20-3.40); #Monocytes 1.2 thou/uL (0.11-0.59); #Neutrophils 12.9 thou/uL (1.40-6.50); %Basophils 0.1 % (0.0-1.0); %Lymphocytes 21.2 % (21.0-51.0); %Monocytes 6.5 % (0.0-10.0); %Neutrophils 71.2 % (42.0-75.0); Hemoglobin 13.3 g/dL (12.0-16.0); Mean Corpuscular HGB CONC 33.1 g/dL (32.0-36.0); Mean Corpuscular Hemoglobin 31.7 pg (27.0-31.0); Mean Corpuscular Volume 95.9 fL (78.0-98.0); Mean Platelet Volume 7.9 fL (7.4-10.4); Platelet Count 253 thou/uL (130-400); RBC Distribution Width 11.7 % (11.5-14.5); Red Blood Cell (RBC) Count 4.21 mill/uL (4.20-5.40); White Blood Cell (WBC) Count 18.1 thou/uL (4.8-10.8)
[2019-08-13 01:54] LABS: ALT (SGPT) 22 U/L (8-55); AST (SGOT) 25 U/L (5-34); Albumin 4.3 g/dL (3.4-4.8); Alkaline Phosphatase 132 U/L (40-110); Anion Gap 18 mmol/L (10-20); BUN (Urea Nitrogen) 43 mg/dL (9.8-20.1); Bilirubin, Total 0.2 mg/dL (0.2-1.2); Calc. Creatinine Clearance 0 mL/min (70-130); Calcium 9.5 mg/dL (7.8-10.44); Carbon Dioxide 19 mmol/L (23-31); Chloride 106 mmol/L (98-107); Estimated GFR-MDRD 22; Globulin 2.5 g/dL (2.4-3.5); Glucose 140 mg/dL (83-110); Potassium 4.4 mmol/L (3.5-5.1); Protein, Total 6.8 g/dL (6.0-8.3); Sodium 139 mmol/L (136-145)
[2019-08-13 02:05] LABS: Base Excess-Venous -4.4 mmol/L (-2.0 to 3.0); Bicarbonate (HCO3v) 26.8 mmol/L (22.0-28.0); CO2 Tension (PvCO2) 79.3 mmHg (40.0-50.0); Calcium, Ionized 1.23 mmol/L (See Comments:); Chloride 109 mmol/L (98-107); Hemoglobin - Calc 14.5 g/dL (12.0-16.0); Potassium 5.7 mmol/L (3.5-5.1); Sodium 141 mmol/L (138-145); T. Carbon Dioxide 29.2 mmol/L (22.0-28.0)
[2019-08-13] MEDS ORDERED: Albuterol Sulfate 2.5 mg/3 ml Neb ONE (02:08)
[2019-08-13] MEDS ORDERED: Azithromycin 500 MG VIAL ONE (03:00)
[2019-08-13] MEDS ORDERED: Morphine 4 MG/ML VIAL ONE (03:00)
[2019-08-13] MEDS ORDERED: cefTRIAXone\\ROCEPHIN 1 GM VIAL ONE (03:13)
--- NOTE | 2019-08-13 04:40 | HP ---
CHIEF COMPLAINT: Shortness of breath. HISTORY OF PRESENT ILLNESS: The patient is an 84-year-old female with past medical history of hyperlipidemia, TIA, macular degeneration, CVA, tricuspid and mitral valve insufficiency, who presents to the hospital with change in mental status and shortness of breath. The patient's daughter who is at the bedside is very involved in her care. She states the patient is wheelchair bound and when she came in to check on her mom today, she was sitting up in the chair, was very short of breath and was trying to pull things in the air. At this time, she tried to sternal rub her mother. Her mother just kept her breathing really, really fast. At this time, she brought the patient to the hospital. The patient's daughter also states that the patient has not been feeling well for the past few days. She states at baseline, the patient does not eat very much and she has not been drinking very much either. However, today she did have a little bit and fed herself which she normally does not feed herself. She denies any recent fevers or chills or any nausea, vomiting, or diarrhea. PAST MEDICAL HISTORY: History of CVA, convulsion, anemia, tricuspid and mitral valve insufficiency, and dementia. PAST SURGICAL HISTORY: Per records, she has had multiple breast biopsies. She has had a hysterectomy. She has had orthopedic surgery, back surgery, appendectomy. SOCIAL HISTORY: No alcohol use, drug use. She was a former smoker a long time ago. She is currently a do not intubate and her daughter is her POA. ALLERGIES: SHE IS ALLERGIC TO CIPRO, CLONIDINE, CODEINE, DEMEROL, AND PENICILLIN. MEDICATIONS: Unable to obtain, the daughter does not know, and my computers are not opening up any documents, so I am unable to see previous dictations. PHYSICAL EXAMINATION: VITAL SIGNS: Temperature of 98.0, respirations are 22, blood pressure initially was 164/73. She is currently on BiPAP. GENERAL: The patient is completely altered, is unable to open her eyes. Also, the patient appears very malnourished. CV: S1 and S2 present. Tachycardia noted. LUNGS: Mild rhonchi all over. ABDOMEN: Soft. Bowel sounds are present x2. EXTREMITIES: Mild edema. Pedal pulses are present x2. NEUROVASCULAR: Unable to obtain. The patient is very lethargic and is not following any commands. SKIN: No cuts, lesions, or bruises noted. LABORATORY RESULTS: WBCs of 18.1, hemoglobin of 13.3, hematocrit of 40.4, platelets of 253. Chemistry; sodium 139, potassium of 4.4. Her BUN is , creatinine of 2.10. Her blood gas which was a VBG showed a pH of 7.13. The patient did have a chest x-ray which did not indicate any significant acute abnormalities. ASSESSMENT AND PLAN: The patient is an 84-year-old female who presents to the hospital with change in mental status and shortness of breath. 1. Acute respiratory failure. We did have a conversation with the patient's daughter who is the POA. She states that she does not want the patient to be intubated given her pH of 7.1. We did explain to her that with this blood gas, a BiPAP is not very optimal option. However, the patient's daughter stated that her father had been through a lot and she does not want her mother to suffer, especially knowing her baseline condition is very, very debilitating. She does not want the patient to be intubated. She wants the patient to currently be on the BiPAP and to see if her situation improves. I did tell her looking at her current situation, the fact that she was very tachypneic that she probably will not make it if we do not intubate her. The patient's daughter understands that and she still does not want her mother to be intubated. I did ask her that probably hospice is the best option for this patient and she has agreed. I did tell her to call her family in. I will go ahead and ask her if she has any preference for any hospice facilities. I do not even think this patient will make it out of the hospital, once they take her off the BiPAP, she would meet the criteria for inpatient hospice. I will continue the antibiotics for now and I will continue the BiPAP for now. We did give her some morphine so that she would breathe a little bit more comfortably and the patient's daughter was okay with that. 2. Leukocytosis. Again, possibly underlying infectious etiology. 3. History of cerebrovascular accident. We will continue to monitor. 4. Acute metabolic encephalopathy. Again, this could be most likely secondary to her underlying hypoxia and acidosis. We will continue to monitor. 5. Acute kidney injury. I will start her on some gentle hydration. Her troponin x1 was negative. Again, her overall prognosis is very poor. I have relayed this to the patient's daughter. She understands and she does not want any significant intervention for her mother, she wants her mother to be comfortable. Job ID: [id number]
[2019-08-13 05:18] LABS: Troponin I 0.013 ng/mL (< 0.028)
[2019-08-13] MEDS ORDERED: Morphine 2 MG/ML SYRINGE SLOW IVP PRN (05:47)
--- NOTE | 2019-08-13 05:48 | PDOC.EVN ---
Event Note - Event Note Event Note: i have spoken with family and hospice and pt will be go to inpatient hospice.
[2019-08-13] MEDS ORDERED: Sodium Chloride 0.9% 1,000 ML IV SCH (06:00)
--- NOTE | 2019-08-13 09:05 | RAD ---
PORTABLE CHEST 1 VIEW: Date: 08/13/19 Time: 0121 hours HISTORY: Respiratory distress. Dyspnea. FINDINGS: Comparison made with exam of 07/16/19. The heart is enlarged. The aorta is tortuous. Aortic valvular stent is again seen. No lobar consolida tion, pneumothoraces, génesis pulmonary edema, or pleural effusions are noted. IMPRESSION: No acute process. POS: DEMETRIS
--- NOTE | 2019-08-21 05:21 | PQF ---
AYANNA MAYNARD KARISHMA [id number] [facility] [id number] CLINICAL DOCUMENTATION CLARIFICATION FORM: POST DISCHARGE Addendum to original discharge summary date: ____ Late entry note date: __ DATE: 08/21/19 ATTN: Janine Apodaca Please exercise your independent, professional judgment in responding to the clarification form. Clinical indicators are provided on the bottom of this form for your review Please check appropriate box(s): ___x____ I (concur) with the Wound Care findings as stated below. [ ] Pressure Ulcer: (Stage I: Erythema; Stage II: Partial thickness; Stage III : Full thickness; Stage IV: Necrosis to muscle/bone) [ ] Location: Sacral pressure ulcer POA: [ ] Yes [ ] No[ ] Unable to determine Stage (I to IV): (Left Right Bilateral N/A ) [ ] No pressure ulcer diagnosis [ ] Deep tissue injury [ ] Other diagnosis please specify [ ] Unable to determine In addition, please specify: Present on Admission (POA): [ x] Yes [ ] No [ ] Unable to determine For continuity of documentation, please document condition throughout progress notes and discharge summary. Thank You. CLINICAL INDICATORS - SIGNS / SYMPTOMS / LABS ED Provider 08/13 pg.1- ""84 yo F presents to ED via EMS transport for respiratory distress" ER Visit Notes pg.3- "Nursing assessment: SKIN: pressure ulcer to the sacrum, banchable redness to sacrum" H and P pg.1- "Patient is wheelchair bound" RISK FACTORS: History of CVA- H and P pg.1 Dementia- H and P pg.1 wheelchair bound- H and P pg.1 TREATMENTS: Skin assessment- ER Visit Notes pg.3 (This form is maintained as a part of the permanent medical record) 2014 [employer] All Rights Reserved [email or web address] [not provided] [email or web address]
== END 2019-08-13 06:20 | disposition expired | DRG 189 ==
LOC: ERS 00:45 → ERHOLD 03:14
PROVIDERS: ADMIT Internal Medicine; ATTEND Internal Medicine
PROC: 5A09357 Assistance with Respiratory Ventilation, Less than 24 Consecutive Hours, Continuous Positive Airway Pressure (ICD-10-PCS; principal; 2019-08-13)
DX: J96.00 Acute respiratory failure, unspecified whether with hypoxia or hypercapnia (principal); G93.41 Metabolic encephalopathy; N17.9 Acute kidney failure, unspecified; Z51.5 Encounter for palliative care; E78.5 Hyperlipidemia, unspecified; I08.1 Rheumatic disorders of both mitral and tricuspid valves; F03.90 Unspecified dementia, unspecified severity, without behavioral disturbance, psychotic disturbance, mood disturbance, and anxiety; H35.30 Unspecified macular degeneration; I10 Essential (primary) hypertension; F41.9 Anxiety disorder, unspecified; F32.9 Major depressive disorder, single episode, unspecified; Z88.5 Allergy status to narcotic agent; Z88.1 Allergy status to other antibiotic agents; Z88.8 Allergy status to other drugs, medicaments and biological substances; Z86.73 Personal history of transient ischemic attack (TIA), and cerebral infarction without residual deficits; Z99.3 Dependence on wheelchair; Z87.891 Personal history of nicotine dependence; R56.9 Unspecified convulsions; D64.9 Anemia, unspecified; L89.159 Pressure ulcer of sacral region, unspecified stage
CPT/HCPCS: 36415; 71045; 80053; 82330; 82803; 83880; 84484; 85025; 93005; 94644; 94660; 96361; 96365; 96366; 96375; 96376; J0456; J0696; J2270; J7611; J7620